=== PATIENT | female | born 1965 | race African-American/Black ===

== ENCOUNTER 2016-09-11 08:56 | Inpatient (IN) | payer OTHER ==
[2016-09-11 09:15] VITALS: BMI 26.2
--- NOTE | 2016-09-11 09:46 | PDOC ---
History of Present Illness <Emeterio Crowder - Last Filed: 09/11/16 14:45> - General History Source: Patient Exam Limitations: No Limitations - History of Present Illness Initial Comments: 09/11/16 10:51 The patient is a 51 year old female, with a significant past medical history of Asthma, Type II Diabetes, HTN, Anxiety, depression, ovarian cysts who presents to the emergency department with fever, constipation and LLQ abdominal pain. Patient visited her PCP and was was sent in for elevated WBC count. Patient notes she has been having 1 month history of vaginal discharge (white) however attributed it to her Diabetes. Patient has not been sexually active for 6 years. Patient denies taking any medications for relief and presents to the ED for further evaluation. Patient denies any history of diverticulitis or recent colonoscopy. She denies chest pain, headache or dizziness. She denies chills, nausea, vomit, diarrhea. She denies dysuria, frequency, urgency or hematuria. Allergies: NKA Past surgical history: Appendectomy and R ovariectomy Social history: Current everyday smoker PCP: Dr. Rocío Mcdonald <Joanne Locke - Last Filed: 09/11/16 14:51> - General Chief Complaint: Pain Stated Complaint: INFECTION, (PCP SENT) Time Seen by Provider: 09/11/16 09:46 Past History - Past Medical History Asthma: Yes Diabetes: Yes HTN: Yes Psychiatric Problems: Yes (anxiety, depression) - Surgical History Abdominal Surgery: (ovarian cyst) - Psycho/Social/Smoking Cessation Hx Suicidal Ideation: No Smoking History: Current every day smoker Number of Cigarettes Smoked Daily: 7 Information on smoking cessation initiated: Yes 'Breaking Loose' booklet given: 09/11/16 Hx Alcohol Use: No Drug/Substance Use Hx: No Substance Use Type: None <Emeterio Crowder - Last Filed: 09/11/16 14:45> <Joanne Locke - Last Filed: 09/11/16 14:51> - Past Medical History Allergies/Adverse Reactions: Allergies Allergy/AdvReac Type Severity Reaction Status Date / Time No Known Allergies Allergy Verified 09/11/16 09:14 Home Medications: Ambulatory Orders NK [No Known Home Medication] 09/11/16 Review of Systems - Review of Systems Able to Perform ROS?: Yes Comments:: 09/11/16 10:51 CONSTITUTIONAL: +fever Absent: chills, diaphoresis, generalized weakness, malaise, loss of appetite HEENT: Absent: rhinorrhea, nasal congestion, throat pain, throat swelling, difficulty swallowing, mouth swelling, ear pain, eye pain, visual Changes CARDIOVASCULAR: Absent: chest pain, syncope, palpitations, irregular heart rate, lightheadedness , peripheral edema RESPIRATORY: Absent: cough, shortness of breath, dyspnea with exertion, orthopnea, wheezing, stridor, hemoptysis GASTROINTESTINAL: + LLQ abdominal pain, constipation. Absent: abdominal distension, nausea, vomiting, diarrhea, melena, hematochezia GENITOURINARY: Absent: dysuria, frequency, urgency, hesitancy, hematuria, flank pain, genital pain MUSCULOSKELETAL: Absent: myalgia, arthralgia, joint swelling SKIN: Absent: rash, itching, pallor HEMATOLOGIC/IMMUNOLOGIC: Absent: easy bleeding, easy bruising, lymphadenopathy, frequent infections ENDOCRINE: Absent: unexplained weight gain, unexplained weight loss, heat intolerance, cold intolerance NEUROLOGIC: Absent: headache, focal weakness or paresthesias, dizziness, unsteady gait, seizure, mental status changes, bladder or bowel incontinence PSYCHIATRIC: Absent: anxiety, depression, suicidal or homicidal ideation, hallucinations. <Joanne Locke - Last Filed: 09/11/16 14:51> *Physical Exam - Vital Signs Last Vital Signs Temp Pulse Resp BP Pulse Ox 98.5 F 90 18 148/97 99 09/11/16 09:13 09/11/16 09:13 09/11/16 09:13 09/11/16 09:13 09/11/16 09:13 <Emeterio Crowder - Last Filed: 09/11/16 14:45> - Vital Signs Last Vital Signs Temp Pulse Resp BP Pulse Ox 98.5 F 90 18 148/97 99 09/11/16 09:13 09/11/16 09:13 09/11/16 09:13 09/11/16 09:13 09/11/16 09:13 - Physical Exam Comments: 09/11/16 10:52 GENERAL: Well developed, well nourished. Awake and alert. In no acute distress. HEENT: Normocephalic, atraumatic. PERRLA, EOMI. No conjunctival pallor. Sclera are non- icteric. Moist mucous membranes. Oropharynx is clear. NECK: Supple. Full ROM. No JVD. Carotid pulses 2+ and symmetric, without bruits. No thyromegaly. No lymphadenopathy. CARDIOVASCULAR: Regular rate and rhythm. No murmurs, rubs, or gallops. Distal pulses are 2+ and symmetric. PULMONARY: No evidence of respiratory distress. Lungs clear to auscultation bilaterally. No wheezing, rales or rhonchi. ABDOMINAL: +L suprapibic temderess on superfcial and deep palpation. Soft. Non-distended. No rebound or guarding. No organomegaly. Normoactive bowel sounds. MUSCULOSKELETAL Normal range of motion at all joints. No bony deformities or tenderness. No CVA tenderness. EXTREMITIES: No cyanosis. No clubbing. No edema. No calf tenderness. SKIN: Warm and dry. Normal capillary refill. No rashes. No jaundice. NEUROLOGICAL: Alert, awake, appropriate. Cranial nerves 2-12 intact. No deficits to light touch and temperature in face, upper extremities and lower extremities. No motor deficits in the in face, upper extremities and lower extremities. Normoreflexic in the upper and lower extremities. Normal speech. Toes are downgoing bilaterally. Gait is normal without ataxia. PSYCHIATRIC: Cooperative. Good eye contact. Appropriate mood and affect. PELVIC EXAM: Copious yellow discharge. No CMT. No adnexal tenderness <Joanne Locke - Last Filed: 09/11/16 14:51> Heart Score/ECG Review - ECG Intrepretation Comment:: 09/11/16 10:25 Normal sinus rhythm at 78, normal axis, normal intervals, late R-wave progression, no ST changes <Emeterio Crowder - Last Filed: 09/11/16 14:45> ED Treatment Course - LABORATORY CBC & Chemistry Diagram: 09/11/16 09:47 09/11/16 10:20 <Emeterio Crowder - Last Filed: 09/11/16 14:45> - LABORATORY CBC & Chemistry Diagram: 09/11/16 09:47 09/11/16 10:20 - ADDITIONAL ORDERS Additional order review: 09/11/16 09:47 RBC 4.36 MCV 96.9 H MCHC 33.4 RDW 14.0 MPV 7.5 Neutrophils % 73.7 Lymphocytes % 19.5 Monocytes % 5.3 Eosinophils % 0.8 Basophils % 0.7 - Medications Given in the ED: ED Medications Discontinued Medications Generic Name Dose Route Start Last Admin Trade Name Francisco PRN Reason Stop Dose Admin Sodium Chloride 1,000 mls @ 1,000 mls/hr 09/11/16 09:47 09/11/16 10:06 Normal Saline - IV 09/11/16 10:46 1,000 mls/hr ASDIR STA Administration Morphine Sulfate 4 mg 09/11/16 09:55 09/11/16 10:06 Morphine Injection - IVPUSH 09/11/16 09:56 4 mg ONCE ONE Administration <Joanne Locke - Last Filed: 09/11/16 14:51> Medical Decision Making - Medical Decision Making 09/11/16 09:55 The patient is well-appearing and in no acute distress Her clinical presentation is quite consistent with diverticulitis Will obtain labs as well as a CT of the abdomen and pelvis with oral and IV contrast We'll administer IV fluids and IV analgesia with morphine 09/11/16 11:29 CBC noted including leukocytosis Diverticulosis is likely Will administer ceftriaxone and tonight is all Will await chemistries and CT 09/11/16 13:24 CT noted Repeat abdominal examination: Continued left lower quadrant tenderness Will obtain transvaginal ultrasound to rule out ovarian pathology Will perform pelvic exam 09/11/16 13:48 Pelvic with copious vaginal discharge, no cervical motion tenderness, no adnexal tenderness Ultrasound pending 09/11/16 14:45 Ultrasound noted, without significant abnormality She continues to have left lower quadrant pain and left lower quadrant tenderness Will place on observation for further evaluation, and surgical consultation Clinical impression: Left lower quadrant abdominal pain Leukocytosis Case discussed in detail with admitting provider including history, physical exam and ancillary studies. Admitting physician has assumed care for the patient, will follow all pending diagnostics and will complete the evaluation and treatment. <Emeterio Crowder - Last Filed: 09/11/16 14:45> - Medical Decision Making 09/11/16 12:17 CT AP Impression: Diffuse fatty infiltration of the liver with no evidence of diverticulitis or acute pathology within the abdomen or pelvis. Transvaginal US IMPRESSION: Normal appearing uterus without evidence of a discrete mass lesion/fibroid. Both ovaries were not visualized. There is no free fluid in the cul-de-sac. Dr. Maldonado was paged at 2:[address] Maldonado answered the page at 2:49 PM and the patient's case was discussed. <Joanne Locke - Last Filed: 09/11/16 14:51> *DC/Admit/Observation/Transfer - Discharge Dispostion Admit: Yes <Emeterio Crowder - Last Filed: 09/11/16 14:45> - Attestations Scribe Attestion: 09/11/16 10:52 Documentation prepared by Joanne Locke, acting as medical technologist chief for Emeterio Crowder MD/DO. <Joanne Locke - Last Filed: 09/11/16 14:51> Diagnosis at time of Disposition: Abdominal pain - Referrals Referrals: Rocío Mcdonald MD [Primary Care Provider] -
[2016-09-11] MEDS ORDERED: SODIUM CHLORIDE 1,000 ML IV STA (09:47)
[2016-09-11] MEDS ORDERED: morphine CARPU-JECT 4 MG/1 ML DISP.SYRIN IVPUSH ONE ×2 (09:55→12:09)
[2016-09-11] MEDS ORDERED: morphine CARPU-JECT 4 MG/1 ML DISP.SYRIN ONE ×2 (10:04→12:14)
[2016-09-11 10:32] LABS: BASOPHIL 0.7 % (0-2.0); EOSINOPHIL 0.8 % (0-4.5); MCH 32.4 pg (25.7-33.7); MCHC 33.4 g/dl (32.0-36.0); MEAN CELL VOLUME 96.9 fl (80-96); MEAN PLT VOLUME 7.5 fl (7.5-11.1); NEUTROPHILS 73.7 % (42.8-82.8); PLATELET COUNT 276 K/MM3 (134-434); WHITE BLOOD COUNT 18.8 K/mm3 (4.0-10.0)
[2016-09-11 11:07] LABS: ALBUMIN 3.1 g/dl (3.4-5.0); ALK PHOS 110 U/L (45-117); ANION GAP 8 (8-16); BILIRUBIN,TOTAL 0.3 mg/dL (0.2-1.0); CO2 29 mmol/L (21-32); CREATININE 0.8 mg/dL (0.55-1.02); GLUCOSE,RANDOM 220 mg/dL (74-106); SGPT/ALT 24 U/L (12-78); TOT PROT 6.8 g/dl (6.4-8.2)
[2016-09-11 11:13] LABS: SGOT/AST 21 U/L (15-37)
[2016-09-11] MEDS ORDERED: CEFTRIAXONE 1 GM in DEXTROSE 5%-WATER - 50 ML IVPB ONE (11:29)
[2016-09-11] MEDS ORDERED: CEFTRIAXONE 50 ML ONE (11:48)
[2016-09-11] MEDS ORDERED: METRONIDAZOLE 500 MG PREMIXED 100 ML IVPB ONE (11:48)
[2016-09-11 12:07] LABS: URINE APPEARANCE CLEAR; URINE BILIRUBIN NEGATIVE (NEGATIVE); URINE COLOR STRAW; URINE GLUCOSE (UA) NEGATIVE (NEGATIVE); URINE KETONE NEGATIVE (NEGATIVE); URINE LEUK ESTERASE NEGATIVE (NEGATIVE); URINE NITRITE NEGATIVE (NEGATIVE); URINE PROTEIN NEGATIVE (NEGATIVE); URINE UROBILINOGEN NEGATIVE E.U./dl (0.2-1.0)
[2016-09-11 12:28] LABS: URINE BLOOD 1+ (NEGATIVE)
[2016-09-11 12:33] LABS: URINE BACTERIA RARE /hpf (NONE SEEN); URINE MUCUS RARE; URINE RBC <1 /hpf (0-3); URINE WBC 2 /hpf (3-5)
[2016-09-11] MEDS: SODIUM CHLORIDE 1,000 ML IV SCH ×2 (15:17→20:50)
--- NOTE | 2016-09-11 17:27 | EKG ---
Test Reason : Blood Pressure : / mmHG Vent. Rate : 079 BPM Atrial Rate : 079 BPM P-R Int : 144 ms QRS Dur : 074 ms QT Int : 378 ms P-R-T Axes : 060 007 042 degrees QTc Int : 433 ms NORMAL SINUS RHYTHM CANNOT RULE OUT ANTERIOR INFARCT , AGE UNDETERMINED ABNORMAL ECG NO PREVIOUS ECGS AVAILABLE Confirmed by SYDNEY RAMIREZ MD ([id number]) on 09/11/2016 5:26:57 PM Referred By: Confirmed By:SYDNEY RAMIREZ MD
--- NOTE | 2016-09-11 19:36 | CONSULT ---
[id number] Chief Complaint: ABDOMINAL PAIN History of Present Illness: The patient is a 51 year old female, with a significant past medical history of Asthma, Type II Diabetes, HTN, Anxiety, depression, ovarian cysts who presents to the emergency department with fever, constipation and LLQ abdominal pain. Patient visited her PCP and was was sent in for elevated WBC count. Surgery consult called to r/o SBO - History Source History Provided By: Patient Limitations to Obtaining History: No Limitations - Alcohol/Substance Use Hx Alcohol Use: No - Smoking History Smoking history: Current every day smoker Aproximately how many cigarettes per day: 7 Home Medications - Allergies Allergies/Adverse Reactions: Allergies Allergy/AdvReac Type Severity Reaction Status Date / Time No Known Allergies Allergy Verified 09/11/16 09:14 - Home Medications Home Medications: Ambulatory Orders Albuterol Sulfate Inhaler - [Ventolin Hfa Inhaler -] 2 inh PO Q4H PRN 09/12/16 Clonidine HCl [Catapres -] 0.3 mg PO HS 09/12/16 Enalapril Maleate [Vasotec -] 10 mg PO DAILY 09/12/16 Escitalopram Oxalate [Lexapro -] 20 mg PO DAILY 09/12/16 Metformin HCl [Glucophage -] 1,000 mg PO BID 09/12/16 Quetiapine Fumarate [Seroquel -] 50 mg PO HS 09/12/16 Review of Systems - Review of Systems Gastrointestinal: reports: Abdominal Pain Physical Exam Vital Signs: Vital Signs Temperature 98.5 F 09/11/16 09:13 Pulse Rate 90 09/11/16 09:13 Respiratory Rate 18 09/11/16 09:13 Blood Pressure 148/97 09/11/16 09:13 O2 Sat by Pulse Oximetry (%) 99 09/11/16 09:13 Constitutional: Yes: Well Nourished, No Distress HENT: Yes: Normocephalic Neck: Yes: Supple Cardiovascular: Yes: Regular Rate and Rhythm Respiratory: Yes: CTA Bilaterally Gastrointestinal: Yes: Tenderness (suprpubic, no rebound tenderness) Labs: Laboratory Last Values WBC 17.9 K/mm3 (4.0-10.0) H 09/12/16 06:30 RBC 4.21 M/mm3 (3.60-5.2) 09/12/16 06:30 Hgb 13.6 GM/dL (10.7-15.3) 09/12/16 06:30 Hct 41.2 % (32.4-45.2) 09/12/16 06:30 MCV 97.9 fl (80-96) H 09/12/16 06:30 MCHC 32.9 g/dl (32.0-36.0) 09/12/16 06:30 RDW 14.2 % (11.6-15.6) 09/12/16 06:30 Plt Count 265 K/MM3 (134-434) 09/12/16 06:30 MPV 7.9 fl (7.5-11.1) 09/12/16 06:30 Neutrophils % 77.5 % (42.8-82.8) 09/12/16 06:30 Lymphocytes % 16.1 % (8-40) 09/12/16 06:30 Monocytes % 4.8 % (3.8-10.2) 09/12/16 06:30 Eosinophils % 1.1 % (0-4.5) 09/12/16 06:30 Basophils % 0.5 % (0-2.0) 09/12/16 06:30 Sodium 132 mmol/L (136-145) L 09/12/16 06:30 Potassium 3.9 mmol/L (3.5-5.1) 09/12/16 06:30 Chloride 94 mmol/L (98-107) L 09/12/16 06:30 Carbon Dioxide 25 mmol/L (21-32) 09/12/16 06:30 Anion Gap 13 (8-16) 09/12/16 06:30 BUN 4 mg/dL (7-18) L 09/12/16 06:30 Creatinine 0.6 mg/dL (0.55-1.02) D 09/12/16 06:30 Creat Clearance w eGFR > 60 (>60) 09/12/16 06:30 Random Glucose 146 mg/dL (74-106) H D 09/12/16 06:30 Calcium 8.5 mg/dL (8.5-10.1) 09/12/16 06:30 Total Bilirubin 0.4 mg/dL (0.2-1.0) D 09/12/16 06:30 AST 18 U/L (15-37) 09/12/16 06:30 ALT 25 U/L (12-78) 09/12/16 06:30 Alkaline Phosphatase 109 U/L (45-117) 09/12/16 06:30 C-Reactive Protein 1.0 MG/DL (0.00-0.3) H D 09/12/16 08:45 Total Protein 6.8 g/dl (6.4-8.2) 09/12/16 06:30 Albumin 3.0 g/dl (3.4-5.0) L 09/12/16 06:30 Lipase 79 U/L (73-393) 09/11/16 10:20 Urine Color Straw 09/11/16 11:44 Urine Appearance Clear 09/11/16 11:44 Urine pH 6.0 (5.0-8.0) 09/11/16 11:44 Ur Specific [place] <= 1.005 (1.005-1.025) 09/11/16 11:44 Urine Protein Negative (NEGATIVE) 09/11/16 11:44 Urine Glucose (UA) Negative (NEGATIVE) 09/11/16 11:44 Urine Ketones Negative (NEGATIVE) 09/11/16 11:44 Urine Blood 1+ (NEGATIVE) H 09/11/16 11:44 Urine Nitrite Negative (NEGATIVE) 09/11/16 11:44 Urine Bilirubin Negative (NEGATIVE) 09/11/16 11:44 Urine Urobilinogen Negative E.U./dl (0.2-1.0) 09/11/16 11:44 Ur Leukocyte Esterase Negative (NEGATIVE) 09/11/16 11:44 Urine RBC <1 /hpf (0-3) 09/11/16 11:44 Urine WBC 2 /hpf (3-5) 09/11/16 11:44 Ur Epithelial Cells Few /hpf (FEW) 09/11/16 11:44 Urine Bacteria Rare /hpf (NONE SEEN) 09/11/16 11:44 Urine Mucus Rare 09/11/16 11:44 C.trachomatis Ampl DNA Negative (Negative) 09/11/16 14:40 HIV 1&2 Antibody Screen Negative 09/12/16 08:45 HIV P24 Antigen Negative 09/12/16 08:45 N. gonorrhoeae (JANKI) Negative (Negative) 09/11/16 14:40 Imaging - Results Cat Scan: Report Reviewed, Image Reviewed Problem List - Problems (1) Abdominal pain Assessment/Plan: No evidence of SBO or diverticulitis. No surgical intervention necessary at this time Please reconsult prn Code(s): R10.9 - UNSPECIFIED ABDOMINAL PAIN
[2016-09-12] MEDS ORDERED: DEXTROSE 5%-0.45% SALINE 1,000 ML IV SCH (01:15)
[2016-09-12] MEDS: morphine CARPU-JECT 2 MG/1 ML DISP.SYRIN IVPUSH PRN ×2 (02:29→10:57)
[2016-09-12] MEDS: METRONIDAZOLE 500 MG PREMIXED 100 ML IVPB SCH ×3 (02:30→18:01)
--- NOTE | 2016-09-12 08:17 | PN ---
Progress Note, Physician Chief Complaint: ID Patient seen by Dr Galvez last week for chronic recurrent abd pain foul smelling vaginal discharge possible fever Noted to have elevated WBC count. Told by Dr Galvez to be admitted and came last night though told to come earlier. Ct scan shows no abscess or diverticulitis - Current Medication List Current Medications: Active Medications Ceftriaxone Sodium (Rocephin 1gm Ivpb (Pre-Docked)) 1 gm IVPB DAILY OSITO Heparin Sodium (Porcine) (Heparin -) 5,000 unit SQ BID OSITO Dextrose/Sodium Chloride (D5-1/2ns -) 1,000 mls @ 75 mls/hr IV ASDIR OSITO Last Admin: 09/12/16 02:00 Dose: 75 mls/hr Metronidazole (Flagyl 500mg Premixed Ivpb -) 100 mls @ 100 mls/hr IVPB Q8H-IV OSITO Last Admin: 09/12/16 02:30 Dose: 100 mls/hr Morphine Sulfate (Morphine Injection -) 2 mg IVPUSH Q6H PRN PRN Reason: PAIN Last Admin: 09/12/16 02:29 Dose: 2 mg - Objective Vital Signs: Vital Signs Temperature 98.4 F 09/12/16 07:10 Pulse Rate 74 09/12/16 07:10 Respiratory Rate 20 09/12/16 07:10 Blood Pressure 140/92 09/12/16 07:10 O2 Sat by Pulse Oximetry (%) 98 09/11/16 21:00 Constitutional: Yes: Well Nourished, No Distress HENT: Yes: WNL, Atraumatic Neck: Yes: WNL, Supple Cardiovascular: Yes: Regular Rate and Rhythm, S1, S2 Respiratory: Yes: WNL, Regular, CTA Bilaterally Gastrointestinal: Yes: WNL, Normal Bowel Sounds, Soft, Tenderness, Other (Left sided tenderness). No: Tenderness, Rebound Edema: No Problem List - Problems (1) Abdominal pain Code(s): R10.9 - UNSPECIFIED ABDOMINAL PAIN Assessment/Plan Laboratory Tests 09/11/16 09/11/16 09/11/16 09:47 10:20 11:44 WBC 18.8 H Hgb 14.1 Plt Count 276 BUN 5 L D Creatinine 0.8 Total Bilirubin 0.3 D ALT 24 D Total Protein 6.8 Albumin 3.1 L Lipase 79 Urine RBC <1 Urine WBC 2 C.trachomatis Ampl DNA N. gonorrhoeae (JANKI) 09/11/16 14:40 WBC Hgb Plt Count BUN Creatinine Total Bilirubin ALT Total Protein Albumin Lipase Urine RBC Urine WBC C.trachomatis Ampl DNA Pending N. gonorrhoeae (JANKI) Pending Assessment Suspect intraabd infection ? diverticulitis possible fistula to tract Plan TELEPHONE CLERK evaluation HIV testing Empiric therapy with Ceftraixone and metronidazole ESR CRP Lyndon JOHNSON
[2016-09-12 08:24] LABS: BASOPHIL 0.5 % (0-2.0); EOSINOPHIL 1.1 % (0-4.5); MCH 32.2 pg (25.7-33.7); MCHC 32.9 g/dl (32.0-36.0); MEAN CELL VOLUME 97.9 fl (80-96); MEAN PLT VOLUME 7.9 fl (7.5-11.1); NEUTROPHILS 77.5 % (42.8-82.8); PLATELET COUNT 265 K/MM3 (134-434); RDW 14.2 % (11.6-15.6); WHITE BLOOD COUNT 17.9 K/mm3 (4.0-10.0)
[2016-09-12] MEDS ORDERED: cefTRIAXone 1 GM/50 ML BAG (PRE-DOCKED) IVPB SCH (10:00)
[2016-09-12] MEDS ORDERED: CEFTRIAXONE 1 GM in DEXTROSE 5%-WATER - 50 ML IVPB SCH (10:00)
[2016-09-12] MEDS ORDERED: HEPARIN NA (PORCINE) 5,000 UNITS/ML 1ML VIAL SQ SCH (10:00)
[2016-09-12 10:08] LABS: HIV 1 & 2 AB NEGATIVE; HIV 1 AGp24 NEGATIVE
[2016-09-12 10:35] LABS: ALK PHOS 109 U/L (45-117); ANION GAP 13 (8-16); BILIRUBIN,TOTAL 0.4 mg/dL (0.2-1.0); CALCIUM 8.5 mg/dL (8.5-10.1); CO2 25 mmol/L (21-32); CREATININE 0.6 mg/dL (0.55-1.02); GLUCOSE,RANDOM 146 mg/dL (74-106); SGOT/AST 18 U/L (15-37); SGPT/ALT 25 U/L (12-78); TOT PROT 6.8 g/dl (6.4-8.2)
--- NOTE | 2016-09-12 12:49 | CONS ---
INFECTIOUS DISEASE CONSULT DATE OF CONSULTATION: DATE OF DICTATION: 09/12/2016 HISTORY OF PRESENT ILLNESS: This is a 51-year-old female with type 2 diabetes who presented to the emergency room with a one-month history of intermittent left lower quadrant abdominal pain, fever and constipation. The patient had been referred by her primary care provider to Dr. Kyler Galvez within the last week for evaluation of her symptoms. The patient also notes that she has had a foul-smelling vaginal discharge, which has been chronic now for several weeks. She has had no bleeding per rectum or history of prior gastrointestinal diagnosis. After being seen by Dr. Galvez, her white count was noted to be elevated, and Dr. Galvez advised the patient to come to the hospital, which she finally did last night. Here she had no fever and was empirically treated with ceftriaxone and metronidazole after her white count was noted to be 18,000. Currently, the patient notes that her pain is somewhat better, and she is here for further evaluation, having been advised colonoscopy only last week. She has had a prior appendectomy as well as ovariectomy in the past and has a history of ovarian cyst. She has not seen a [employer] physician recently PAST MEDICAL HISTORY: Asthma, type 2 diabetes, hypertension, anxiety, depression and ovarian cyst. MEDICATIONS AT HOME: Patient states she is on metformin. ALLERGIES: None known. SOCIAL HISTORY: Current every-day smoker. No history of substance abuse. Non-sexually active for 6 years. Lives at home with no travel, pets. Unemployed. FAMILY HISTORY: The family history is reviewed and noncontributory. REVIEW OF SYSTEMS: Respiratory: No cough, shortness of breath. Cardiac: No chest pain, palpitations, murmur. Gastrointestinal: Intermittent lower quadrant "gassy abdominal cramping." No vomiting. Positive constipation. No blood per rectum. Melena. Genitourinary: Vaginal discharge, as noted. PHYSICAL EXAMINATION: General: She was an alert, well-nourished appearing woman in no acute distress. Vital signs; Weight 152 pounds, temperature 98.4, pulse 74, blood pressure 140/90, respirations 20. HEENT: The neck was supple without adenopathy. Lungs: Clear to percussion and auscultation. Heart: S1, S2, regular rhythm without audible murmur. Abdomen: Positive bowel sounds. No abdominal distention noted. Tenderness noted in the left upper and left lower quadrant without guarding or rebound. No palpable mass. Extremities: Without clubbing, cyanosis or edema. LABS: White count of 18.8, hemoglobin 14.1, platelets of 276. Chemistries: Glucose 220. Liver enzymes within normal limits. CRP less than 0.3. Sed rate not done. Urinalysis with 1 RBC, 2 WBCs. CAT scan shows no acute intraabdominal pathology. ASSESSMENT: 51-year-old female presents with chronic recurrent lower abdominal pain on the left side, now noted to have leukocytosis. Also admits to recent fever and chronic vaginal discharge. The possibility of diverticulitis with a small perforation and/or possible fistula to the track considered. Additionally, the possibility of an underlying colonic neoplasm considered. PLAN: 1. Gastrointestinal consultation. Patient has been seen last week by Dr. Galvez. 2. Empiric antibiotic treatment with ceftriaxone and metronidazole. 3. CRP, HIV and ESR testing. 4. [employer] evaluation, Dr. Grant requested. KYLER SOLIS M.D. APOLINAR/[id number]
--- NOTE | 2016-09-12 14:18 | HP ---
Admitting History and Physical - Admission History of Present Illness: Pt is a 51 y/o female, with PMH significant for asthma, Type II Diabetes, HTN, anxiety, depression and ovarian cysts. Pt presented to the ER w/ abdominal pain wc was mostly localized to LLQ. This was accompanied w/ fever. Pt does have a vaginal discharge. - Smoking History Smoking history: Current every day smoker Aproximately how many cigarettes per day: 7 - Alcohol/Substance Use Hx Alcohol Use: No Home Medications - Allergies Allergies/Adverse Reactions: Allergies Allergy/AdvReac Type Severity Reaction Status Date / Time No Known Allergies Allergy Verified 09/11/16 09:14 - Home Medications Home Medications: Ambulatory Orders Albuterol Sulfate Inhaler - [Ventolin Hfa Inhaler -] 2 inh PO Q4H PRN 09/12/16 Clonidine HCl [Catapres -] 0.3 mg PO HS 09/12/16 Enalapril Maleate [Vasotec -] 10 mg PO DAILY 09/12/16 Escitalopram Oxalate [Lexapro -] 20 mg PO DAILY 09/12/16 Metformin HCl [Glucophage -] 1,000 mg PO BID 09/12/16 Quetiapine Fumarate [Seroquel -] 50 mg PO HS 09/12/16 Family Disease History - Family Disease History Family History: Unremarkable Review of Systems - Review of Systems Constitutional: reports: Fever Eyes: reports: No Symptoms HENT: reports: No Symptoms Neck: reports: No Symptoms Cardiovascular: reports: No Symptoms Respiratory: reports: No Symptoms Gastrointestinal: reports: Abdominal Pain Physical Examination Vital Signs: Vital Signs Temperature 98.4 F 09/12/16 07:10 Pulse Rate 74 09/12/16 07:10 Respiratory Rate 20 09/12/16 12:09 Blood Pressure 140/92 09/12/16 07:10 O2 Sat by Pulse Oximetry (%) 98 09/12/16 12:09 Constitutional: Yes: Well Nourished Eyes: Yes: WNL HENT: Yes: WNL Neck: Yes: Supple Cardiovascular: Yes: WNL, Regular Rate and Rhythm Respiratory: Yes: WNL, Regular, CTA Bilaterally Gastrointestinal: Yes: WNL, Normal Bowel Sounds, Soft Breast(s): Yes: WNL Musculoskeletal: Yes: WNL Extremities: Yes: WNL Edema: No Neurological: Yes: WNL, Oriented ...Motor Strength: WNL Labs: CBC, BMP 09/12/16 06:30 09/12/16 06:30 Problem List - Problems (1) Abdominal pain Assessment/Plan: Probably related to chronic constipation Cont IVF GI/surgical consults Cont antibxs due to leukocytosis ID consult Code(s): R10.9 - UNSPECIFIED ABDOMINAL PAIN (2) Asthma Code(s): J45.909 - UNSPECIFIED ASTHMA, UNCOMPLICATED (3) Diabetes mellitus Code(s): E11.9 - TYPE 2 DIABETES MELLITUS WITHOUT COMPLICATIONS (4) Hypertension Code(s): I10 - ESSENTIAL (PRIMARY) HYPERTENSION
[2016-09-12 14:28] VITALS: PULSE 88
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
[2016-09-12 15:40] VITALS: BP 189/98; TEMP 79
[2016-09-12] MEDS ORDERED: ENALAPRIL MALEATE 10 MG TABLET (FP) PO SCH (15:45)
[2016-09-12] MEDS ORDERED: metFORMIN HCL 500 MG TABLET (FP) PO SCH (16:30)
[2016-09-12] MEDS ORDERED: SODIUM CHLORIDE 1,000 ML IV SCH (16:30)
[2016-09-12] MEDS ORDERED: QUEtiapine FUMARATE 25 MG TABLET (FP) PO SCH (22:00)
[2016-09-12] MEDS ORDERED: POLYETHYLENE GLYCOL 3350 119 GM BTL PO SCH (22:00)
[2016-09-12] MEDS ORDERED: cloNIDine HCL 0.1 MG TABLET PO SCH (22:00)
== END 2016-09-12 20:14 | disposition left against medical advice (07) | DRG 254 ==
LOC: JER 08:56 → JERBED 14:46 → J8W 18:20 → OBSVTOIN 09-12 01:00
PROVIDERS: ADMIT Internal Medicine; ATTEND Internal Medicine
DX: K59.09 Other constipation (principal); K62.4 Stenosis of anus and rectum; R50.9 Fever, unspecified; R10.9 Unspecified abdominal pain; J45.909 Unspecified asthma, uncomplicated; I10 Essential (primary) hypertension; F41.8 Other specified anxiety disorders; K55.8 Other vascular disorders of intestine; N70.92 Oophoritis, unspecified; N83.299 Other ovarian cyst, unspecified side; E11.40 Type 2 diabetes mellitus with diabetic neuropathy, unspecified; F17.210 Nicotine dependence, cigarettes, uncomplicated; E78.5 Hyperlipidemia, unspecified; F32.9 Major depressive disorder, single episode, unspecified; N95.8 Other specified menopausal and perimenopausal disorders; E87.1 Hypo-osmolality and hyponatremia; E13.319 Other specified diabetes mellitus with unspecified diabetic retinopathy without macular edema; K76.0 Fatty (change of) liver, not elsewhere classified; D72.829 Elevated white blood cell count, unspecified; F10.20 Alcohol dependence, uncomplicated; E79.0 Hyperuricemia without signs of inflammatory arthritis and tophaceous disease; Z87.898 Personal history of other specified conditions; Z91.5 Personal history of self-harm; Z90.49 Acquired absence of other specified parts of digestive tract
CPT/HCPCS: 36415; 74177-TC; 76830-TC; 80053; 81003; 81015; 83690; 85025; 86140; 87040; 87086; 87389; 87491; 87591; 93005; 93010; 99282-25; G0378; J1644; Q9967

== ENCOUNTER 2016-10-07 17:49 | Emergency (ER) | payer OTHER ==
[2016-10-07 18:00] VITALS: BMI 26.1
[2016-10-07 19:09] LABS: BASOPHIL 0.8 % (0-2.0); EOSINOPHIL 0.7 % (0-4.5); MCH 32.8 pg (25.7-33.7); MCHC 33.1 g/dl (32.0-36.0); MEAN CELL VOLUME 99.1 fl (80-96); MEAN PLT VOLUME 7.8 fl (7.5-11.1); PLATELET COUNT 290 K/MM3 (134-434); RDW 15.1 % (11.6-15.6); WHITE BLOOD COUNT 15.8 K/mm3 (4.0-10.0)
[2016-10-07 19:34] LABS: INR 0.95 (0.82-1.09); PROTHROMBIN TIME (PATIENT) 10.4 SEC (9.98-11.88)
[2016-10-07 19:36] LABS: ACTIVATED PTT 31.2 SECONDS (26.9-34.4)
[2016-10-07 19:37] LABS: ALBUMIN 3.4 g/dl (3.4-5.0); ANION GAP 16 (8-16); BILIRUBIN,TOTAL 0.4 mg/dL (0.2-1.0); CALCIUM 8.9 mg/dL (8.5-10.1); CO2 25 mmol/L (21-32); CREATININE 0.6 mg/dL (0.55-1.02); GLUCOSE,RANDOM 136 mg/dL (74-106); SGOT/AST 45 U/L (15-37); SGPT/ALT 44 U/L (12-78); TOT PROT 7.6 g/dl (6.4-8.2)
[2016-10-07 19:40] LABS: ALK PHOS 113 U/L (45-117); TROPONIN I < 0.02 ng/ml (0.00-0.05)
[2016-10-07] MEDS ORDERED: LORAZEPAM CARPU-JECT 2 MG/ML DISP.SYRIN IVPUSH ONE (19:53)
[2016-10-07] MEDS ORDERED: LABETALOL HCL 5 MG/1 ML (100MG/20 ML VIAL) IVPUSH ONE (19:53)
[2016-10-07] MEDS ORDERED: PANTOPRAZOLE SODIUM 40 MG in SODIUM CHLORIDE 100 ML IVPB ONE (19:53)
[2016-10-07] MEDS ORDERED: ONDANSETRON 4 MG/2 ML VIAL IVPB ONE (19:57)
[2016-10-07] MEDS ORDERED: SODIUM CHLORIDE 1,000 ML IV SCH (20:00)
[2016-10-07] MEDS ORDERED: PANTOPRAZOLE SODIUM 100 ML IVPB ONE (20:10)
[2016-10-07] MEDS ORDERED: LORazepam 2 MG/ML SDV VIAL ONE (20:10)
[2016-10-07] MEDS ORDERED: ONDANSETRON 4 MG/2 ML VIAL ONE (20:10)
[2016-10-07] MEDS ORDERED: LABETALOL HCL 5 MG/1 ML (200MG/40ML VIAL) IVPB ONE (20:10)
--- NOTE | 2016-10-07 21:34 | PDOC ---
History of Present Illness - General Chief Complaint: Blood Pressure Problem Stated Complaint: CHEST PAIN Time Seen by Provider: 10/07/16 19:32 History Source: Patient Exam Limitations: No Limitations - History of Present Illness Initial Comments: 10/07/16 21:13 51yo Female patient w/ PmHx: EtOH dependence, DM, Asthma, HLD, HTN, Depression, Anxiety, Ovarian Cyst, Leukocytosis presents to ED with multiple complaints at this time. Patient state going to [facility] around 1pm today for detox due to alcoholism, while begin assessed she was found to be in Hypertensive Crisis, h/ a and having Epigastric Abd pain. Patient signed herself out of hospital 2 weeks ago after being admitted for abdominal pain w/ Leukocytosis. She reports last drink: 10 am (Beer) LNMP: 7 yrs ago. Past History - Past Medical History Allergies/Adverse Reactions: Allergies Allergy/AdvReac Type Severity Reaction Status Date / Time No Known Allergies Allergy Verified 09/11/16 09:14 Home Medications: Ambulatory Orders Albuterol Sulfate Inhaler - [Ventolin Hfa Inhaler -] 2 inh PO Q4H PRN 09/12/16 Clonidine HCl [Catapres -] 0.3 mg PO HS 09/12/16 Enalapril Maleate [Vasotec -] 10 mg PO DAILY 09/12/16 Escitalopram Oxalate [Lexapro -] 20 mg PO DAILY 09/12/16 Metformin HCl [Glucophage -] 1,000 mg PO BID 09/12/16 Quetiapine Fumarate [Seroquel -] 50 mg PO HS 09/12/16 Sucralfate Oral Suspension [Carafate *Oral Susp*] 1 gm PO BID #140 ml 10/08/16 Asthma: Yes Diabetes: Yes HTN: Yes Psychiatric Problems: Yes (anxiety, depression) - Surgical History Abdominal Surgery: (ovarian cyst) - Psycho/Social/Smoking Cessation Hx Anxiety: Yes Suicidal Ideation: No Smoking History: Current every day smoker Have you smoked in the past 12 months: Yes Number of Cigarettes Smoked Daily: 8 Cigars Per Day: 0 Information on smoking cessation initiated: No 'Breaking Loose' booklet given: 09/11/16 Hx Alcohol Use: Yes Drug/Substance Use Hx: Yes (10/06/16) Substance Use Type: Alcohol, Marijuana *Physical Exam - Vital Signs Last Vital Signs Temp Pulse Resp BP Pulse Ox 99.2 F 78 16 136/72 98 10/07/16 17:57 10/07/16 21:00 10/07/16 21:00 10/07/16 21:00 10/07/16 21:00 ED Treatment Course - LABORATORY CBC & Chemistry Diagram: 10/07/16 18:54 10/07/16 18:54 - ADDITIONAL ORDERS Additional order review: Laboratory Results 10/07/16 10/07/16 18:54 18:54 INR 0.95 PTT (Actin FS) 31.2 Sodium 136 Potassium 3.7 Chloride 95 L Carbon Dioxide 25 Anion Gap 16 BUN 8 D Creatinine 0.6 Creat Clearance w eGFR > 60 Random Glucose 136 H Calcium 8.9 Total Bilirubin 0.4 AST 45 H D ALT 44 D Alkaline Phosphatase 113 Creatine Kinase 89 Troponin I < 0.02 Total Protein 7.6 Albumin 3.4 10/07/16 18:54 RBC 3.98 MCV 99.1 H MCHC 33.1 RDW 15.1 MPV 7.8 Neutrophils % 75.0 Lymphocytes % 19.3 Monocytes % 4.2 Eosinophils % 0.7 Basophils % 0.8 - RADIOLOGY Radiology Studies Ordered: Category Date Time Status GALLBLADDER US [US] Stat Ultrasound 10/07/16 19:51 Ordered - Medications Given in the ED: ED Medications Discontinued Medications Generic Name Dose Route Start Last Admin Trade Name Sonyq PRN Reason Stop Dose Admin Pantoprazole Sodium 40 mg/ 100 mls @ 200 mls/hr 10/07/16 19:53 10/07/16 20:15 Sodium Chloride IVPB 10/07/16 20:22 200 mls/hr ONCE ONE Administration Labetalol HCl 10 mg 10/07/16 19:53 10/07/16 20:15 Normodyne Injection - IVPUSH 10/07/16 19:54 10 mg ONCE ONE Administration Lorazepam 1 mg 10/07/16 19:53 10/07/16 20:15 Ativan Injection - IVPUSH 10/07/16 19:54 1 mg ONCE ONE Administration Ondansetron HCl 4 mg 10/07/16 19:57 10/07/16 20:16 Zofran Injection IVPB 10/07/16 19:58 4 mg ONCE ONE Administration *DC/Admit/Observation/Transfer Diagnosis at time of Disposition: History of alcohol dependence Hypertension Qualifiers: Hypertension type: other secondary hypertension Qualified Code(s): I15.8 - Other secondary hypertension Gastric ulcer Qualifiers: Gastric ulcer chronicity: acute Gastric ulcer complication status: without hemorrhage or perforation Qualified Code(s): K25.3 - Acute gastric ulcer without hemorrhage or perforation - Discharge Dispostion Disposition: I.P. ALCOHOL/SUBS ABUSE REHAB Condition at time of disposition: Improved Admit: No - Prescriptions Prescriptions: Sucralfate Oral Suspension [Carafate *Oral Susp*] 1 gm PO BID #140 ml - Referrals Referrals: Rocío Mcdonald MD [Primary Care Provider] - Onesimo Stewart MD [Staff Physician] - - Patient Instructions Additional Instructions: FOLLOW UP WITH DR. STEWART (GASTROENTEROLOGY) REGARDING GASTRIC ULCERS. REFRAIN FROM DRINKING ALCOHOL OR ULCERS WILL BECOME WORSE. RETURN IF ANY CONCERNS OR WORSENING OF SYMPTOMS FOR FURTHER EVALUATION. Print Language: PORTUGUESE
--- NOTE | 2016-10-07 22:10 | PDOC ---
*Physical Exam - Vital Signs Last Vital Signs Temp Pulse Resp BP Pulse Ox 99.2 F 78 16 136/72 98 10/07/16 17:57 10/07/16 21:00 10/07/16 21:00 10/07/16 21:00 10/07/16 21:00 ED Treatment Course - LABORATORY CBC & Chemistry Diagram: 10/07/16 18:54 10/07/16 18:54 - ADDITIONAL ORDERS Additional order review: Laboratory Results 10/07/16 10/07/16 18:54 18:54 INR 0.95 PTT (Actin FS) 31.2 Sodium 136 Potassium 3.7 Chloride 95 L Carbon Dioxide 25 Anion Gap 16 BUN 8 D Creatinine 0.6 Creat Clearance w eGFR > 60 Random Glucose 136 H Calcium 8.9 Total Bilirubin 0.4 AST 45 H D ALT 44 D Alkaline Phosphatase 113 Creatine Kinase 89 Troponin I < 0.02 Total Protein 7.6 Albumin 3.4 10/07/16 18:54 RBC 3.98 MCV 99.1 H MCHC 33.1 RDW 15.1 MPV 7.8 Neutrophils % 75.0 Lymphocytes % 19.3 Monocytes % 4.2 Eosinophils % 0.7 Basophils % 0.8 - Medications Given in the ED: ED Medications Discontinued Medications Generic Name Dose Route Start Last Admin Trade Name Freq PRN Reason Stop Dose Admin Pantoprazole Sodium 40 mg/ 100 mls @ 200 mls/hr 10/07/16 19:53 10/07/16 20:15 Sodium Chloride IVPB 10/07/16 20:22 200 mls/hr ONCE ONE Administration Labetalol HCl 10 mg 10/07/16 19:53 10/07/16 20:15 Normodyne Injection - IVPUSH 10/07/16 19:54 10 mg ONCE ONE Administration Lorazepam 1 mg 10/07/16 19:53 10/07/16 20:15 Ativan Injection - IVPUSH 10/07/16 19:54 1 mg ONCE ONE Administration Ondansetron HCl 4 mg 10/07/16 19:57 10/07/16 20:16 Zofran Injection IVPB 10/07/16 19:58 4 mg ONCE ONE Administration Medical Decision Making - Medical Decision Making 10/07/16 22:10 agree with care from YAZMIN Banks *DC/Admit/Observation/Transfer Diagnosis at time of Disposition: Gastric ulcer, History of alcohol dependence, Hypertension - Discharge Dispostion Disposition: HOME - Referrals Referrals: Onesimo Stewart MD [Staff Physician] - Roíco Mcdonald MD [Primary Care Provider] - - Patient Instructions Additional Instructions: FOLLOW UP WITH DR. STEWART (GASTROENTEROLOGY) REGARDING GASTRIC ULCERS. REFRAIN FROM DRINKING ALCOHOL OR ULCERS WILL BECOME WORSE. RETURN IF ANY CONCERNS OR WORSENING OF SYMPTOMS FOR FURTHER EVALUATION. Print Language: ROMANSH
[2016-10-08] MEDS ORDERED: SUCRALFATE 1 GM/10 ML UNIT DOSE CUPS PO ONE (04:27)
[2016-10-08] MEDS ORDERED: SUCRALFATE 1 GM TABLET (FP) ONE (04:53)
[2016-10-08 06:52] VITALS: BP 128/79; PULSE 85; TEMP 97.7
--- NOTE | 2016-10-09 16:31 | EKG ---
Test Reason : Blood Pressure : / mmHG Vent. Rate : 070 BPM Atrial Rate : 070 BPM P-R Int : 128 ms QRS Dur : 076 ms QT Int : 424 ms P-R-T Axes : 012 001 024 degrees QTc Int : 457 ms NORMAL SINUS RHYTHM SEPTAL INFARCT (CITED ON OR BEFORE 11-SEP-2016) ABNORMAL ECG WHEN COMPARED WITH ECG OF 11-SEP-2016 10:21, QUESTIONABLE CHANGE IN INITIAL FORCES OF SEPTAL LEADS Confirmed by ASHLEY JOHNSON, SYDNEY ([id number]) on 10/09/2016 4:31:07 PM Referred By: Confirmed By:SYDNEY RAMIREZ MD
== END 2016-10-08 06:57 | disposition home or self-care (01) ==
LOC: JER 17:49
PROC: 3E033GC Introduction of Other Therapeutic Substance into Peripheral Vein, Percutaneous Approach (ICD-10-PCS; principal; 2016-10-07)
PROC: 3E033GC Introduction of Other Therapeutic Substance into Peripheral Vein, Percutaneous Approach (ICD-10-PCS; 2016-10-07)
PROC: 3E033NZ Introduction of Analgesics, Hypnotics, Sedatives into Peripheral Vein, Percutaneous Approach (ICD-10-PCS; 2016-10-07)
PROC: 3E033GC Introduction of Other Therapeutic Substance into Peripheral Vein, Percutaneous Approach (ICD-10-PCS; 2016-10-07)
DX: F10.20 Alcohol dependence, uncomplicated (principal); K25.3 Acute gastric ulcer without hemorrhage or perforation; I15.8 Other secondary hypertension; E11.9 Type 2 diabetes mellitus without complications; Z79.84 Long term (current) use of oral hypoglycemic drugs; J45.909 Unspecified asthma, uncomplicated; F41.9 Anxiety disorder, unspecified
CPT/HCPCS: 36415; 74177-TC; 76705-TC; 80053; 82550; 84484; 85025; 85610; 85730; 93005; 93010; 99285-25

== ENCOUNTER 2016-10-08 08:20 | Inpatient (IN) | payer OTHER ==
[2016-10-08 09:22] VITALS: BMI 26.1
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
[2016-10-08] MEDS ORDERED: MAG HYDROX/AL HYDROX/SIMETH 30 ML UNIT-DOSE CUP PO PRN (13:22)
[2016-10-08] MEDS ORDERED: MAGNESIUM CITRATE 300 ML BOTTLE PO PRN (13:22)
[2016-10-08] MEDS ORDERED: chlordiazePOXIDE HCL 25 MG CAPSULE PO PRN (13:22)
[2016-10-08] MEDS ORDERED: guaiFENesin/D-METHORPHAN HB 10 ML UNIT-DOSE CUPS PO PRN (13:22)
[2016-10-08] MEDS ORDERED: MENTHOL/PHENOL 1 EACH UD MM PRN (13:22)
[2016-10-08] MEDS ORDERED: IBUPROFEN 400 MG TABLET (FP) PO PRN (13:22)
[2016-10-08] MEDS ORDERED: P-EPHED 60MG/TRIPROLIDI 2.5MG TABLET PO PRN (13:22)
[2016-10-08] MEDS ORDERED: hydrOXYzine PAMOATE 25 MG CAPSULE (FP) PO PRN (13:22)
[2016-10-08] MEDS ORDERED: MAGNESIUM HYDROX 2400MG/30ML ORAL SUSPENSION 30 ML CUP PO PRN (13:22)
[2016-10-08] MEDS ORDERED: ALBUTEROL SO4 6.7 GM HFA INHALER IH PRN (13:27)
[2016-10-08] MEDS ORDERED: INSULIN (NOVOLOG) ASPART 100 UNITS/ML 10ML VIAL ONE (16:48)
[2016-10-08] MEDS: metFORMIN HCL 500 MG TABLET (FP) PO SCH ×2 (17:19→17:23)
[2016-10-08] MEDS: chlordiazePOXIDE HCL 25 MG CAPSULE PO SCH ×2 (17:19→22:31)
[2016-10-08] MEDS: INSULIN SLIDING SCALE (NOVOLOG) 1 VIAL SQ SCH (17:20)
[2016-10-08 18:21] LABS: URINE APPEARANCE CLEAR; URINE BILIRUBIN NEGATIVE (NEGATIVE); URINE COLOR YELLOW; URINE GLUCOSE (UA) NEGATIVE (NEGATIVE); URINE KETONE TRACE (NEGATIVE); URINE NITRITE NEGATIVE (NEGATIVE); URINE PROTEIN NEGATIVE (NEGATIVE); URINE UROBILINOGEN NEGATIVE E.U./dl (0.2-1.0)
[2016-10-08 18:40] LABS: URINE BLOOD 1+ (NEGATIVE); URINE LEUK ESTERASE 2+ (NEGATIVE)
[2016-10-08 19:09] LABS: URINE BACTERIA RARE /hpf (NONE SEEN); URINE MUCUS RARE; URINE RBC 5 /hpf (0-3); URINE WBC 1 /hpf (3-5)
[2016-10-08] MEDS: ACETAMINOPHEN 325 MG TABLET (FP) PO PRN (19:17)
[2016-10-08] MEDS: NICOTINE POLACRILEX 4 MG GUM BC PRN ×2 (19:25→23:12)
[2016-10-08] MEDS: THIAMINE HCL 100 MG TABLET (FP) PO SCH (22:30)
[2016-10-08] MEDS: SUCRALFATE 1 GM/10 ML UNIT DOSE CUPS PO SCH (22:31)
[2016-10-08] MEDS: cloNIDine HCL 0.1 MG TABLET PO SCH (22:31)
[2016-10-08] MEDS: diphenhydrAMINE HCL 50 MG CAPSULE PO PRN (22:31)
[2016-10-09] MEDS: chlordiazePOXIDE HCL 25 MG CAPSULE PO SCH ×4 (05:45→22:35)
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
[2016-10-09] MEDS: metFORMIN HCL 500 MG TABLET (FP) PO SCH ×2 (08:02→16:56)
[2016-10-09] MEDS: INSULIN SLIDING SCALE (NOVOLOG) 1 VIAL SQ SCH ×2 (08:02→16:58)
[2016-10-09] MEDS: ACETAMINOPHEN 325 MG TABLET (FP) PO PRN (08:03)
[2016-10-09 09:55] LABS: MCH 33.3 pg (25.7-33.7); MCHC 33.1 g/dl (32.0-36.0); MEAN CELL VOLUME 100.7 fl (80-96); MEAN PLT VOLUME 8.1 fl (7.5-11.1); PLATELET COUNT 194 K/MM3 (134-434); RDW 15.1 % (11.6-15.6); WHITE BLOOD COUNT 11.3 K/mm3 (4.0-10.0)
[2016-10-09 10:13] LABS: ALBUMIN 2.9 g/dl (3.4-5.0); ALK PHOS 85 U/L (45-117); ANION GAP 10 (8-16); BILIRUBIN,TOTAL 0.5 mg/dL (0.2-1.0); CALCIUM 9.2 mg/dL (8.5-10.1); CO2 30 mmol/L (21-32); CREATININE 0.6 mg/dL (0.55-1.02); GLUCOSE,RANDOM 202 mg/dL (74-106); SGOT/AST 23 U/L (15-37); SGPT/ALT 28 U/L (12-78); TOT PROT 6.4 g/dl (6.4-8.2)
[2016-10-09] MEDS: cloNIDine HCL 0.1 MG TABLET PO SCH ×2 (10:50→22:34)
[2016-10-09] MEDS: PRENATAL VITAMINS W/ FOLIC ACID TABLET (FP) PO SCH (10:50)
[2016-10-09] MEDS: ENALAPRIL MALEATE 10 MG TABLET (FP) PO SCH (10:51)
[2016-10-09] MEDS: NICOTINE 21 MG/24 HOURS TOPICAL PATCH TD SCH (10:51)
[2016-10-09] MEDS: SUCRALFATE 1 GM/10 ML UNIT DOSE CUPS PO SCH ×2 (10:51→22:34)
[2016-10-09] MEDS: ESCITALOPRAM OXALATE 20 MG TABLET (FP) PO SCH (10:52)
[2016-10-09] MEDS ORDERED: ONDANSETRON *ODT* 4 MG TABLET SL PRN (10:59)
--- NOTE | 2016-10-09 10:59 | PN ---
S CIWA - CIWA Score Nausea/Vomitin-Mild Nausea/No Vomiting Muscle Tremors: 4-Moderate,w/Arms Extend Anxiety: 3 Agitation: 4-Moderately Restless Paroxysmal Sweats: 3 Orientation: 0-Oriented Tacttile Disturbances: 0-None Auditory Disturbances: 0-None Visual Disturbances: 0-None Headache: 1-Very Mild CIWA-Ar Total Score: 16 BHS Progress Note (SOAP) Subjective: sweats shakes interrupted sleep agitation anxiety nausea Objective: 10/09/16 10:57 Vital Signs Temperature 98.1 F 10/09/16 09:59 Pulse Rate 76 10/09/16 09:59 Respiratory Rate 16 10/09/16 09:59 Blood Pressure 134/77 10/09/16 09:59 O2 Sat by Pulse Oximetry (%) Laboratory Tests 10/08/16 10/08/16 10/08/16 10:13 14:00 16:24 WBC RBC Hgb Hct MCV MCHC RDW Plt Count MPV Sodium Potassium Chloride Carbon Dioxide Anion Gap BUN Creatinine Creat Clearance w eGFR POC Glucometer 242 201 Random Glucose Calcium Total Bilirubin AST ALT Alkaline Phosphatase Total Protein Albumin Urine Color Yellow Urine Appearance Clear Urine pH 6.0 Ur Specific [place] <= 1.005 Urine Protein Negative Urine Glucose (UA) Negative Urine Ketones Trace H Urine Blood 1+ H Urine Nitrite Negative Urine Bilirubin Negative Urine Urobilinogen Negative Ur Leukocyte Esterase 2+ H Urine RBC 5 Urine WBC 1 Ur Epithelial Cells Rare Urine Bacteria Rare Urine Mucus Rare 10/09/16 10/09/16 10/09/16 05:43 07:00 07:00 WBC 11.3 H RBC 3.63 Hgb 12.1 Hct 36.6 MCV 100.7 H MCHC 33.1 RDW 15.1 Plt Count 194 D MPV 8.1 Sodium 139 Potassium 3.7 Chloride 99 Carbon Dioxide 30 Anion Gap 10 BUN 7 Creatinine 0.6 Creat Clearance w eGFR > 60 POC Glucometer 176 Random Glucose 202 H D Calcium 9.2 Total Bilirubin 0.5 D AST 23 D ALT 28 D Alkaline Phosphatase 85 D Total Protein 6.4 Albumin 2.9 L Urine Color Urine Appearance Urine pH Ur Specific [place] Urine Protein Urine Glucose (UA) Urine Ketones Urine Blood Urine Nitrite Urine Bilirubin Urine Urobilinogen Ur Leukocyte Esterase Urine RBC Urine WBC Ur Epithelial Cells Urine Bacteria Urine Mucus repeat cbc and glucose awake/alert ambulating no acute distress Assessment: 10/09/16 10:58 withdrawal sx Plan: continue detox increase water intake f/u pending repeated labs motrin/tylenol prn zofran prn
--- NOTE | 2016-10-09 16:38 | EKG ---
Test Reason : Blood Pressure : / mmHG Vent. Rate : 076 BPM Atrial Rate : 076 BPM P-R Int : 142 ms QRS Dur : 076 ms QT Int : 406 ms P-R-T Axes : 000 007 -03 degrees QTc Int : 456 ms NORMAL SINUS RHYTHM NORMAL ECG WHEN COMPARED WITH ECG OF 07-OCT-2016 18:11, CRITERIA FOR SEPTAL INFARCT ARE NO LONGER PRESENT Confirmed by SYDNEY RAMIREZ MD ([id number]) on 10/09/2016 4:37:52 PM Referred By: Gabino Ott Confirmed By:SYDNEY RAMIREZ MD
[2016-10-09] MEDS ORDERED: INSULIN (NOVOLOG) ASPART 100 UNITS/ML 10ML VIAL ONE (16:54)
[2016-10-09] MEDS: diphenhydrAMINE HCL 50 MG CAPSULE PO PRN (22:34)
[2016-10-09] MEDS: QUEtiapine FUMARATE 50 MG TABLET PO SCH (22:35)
[2016-10-09] MEDS: THIAMINE HCL 100 MG TABLET (FP) PO SCH (22:35)
[2016-10-10] MEDS ORDERED: INSULIN (NOVOLOG) ASPART 100 UNITS/ML 10ML VIAL ONE (05:42)
[2016-10-10] MEDS: chlordiazePOXIDE HCL 25 MG CAPSULE PO SCH ×2 (05:44→11:20)
[2016-10-10] MEDS: INSULIN SLIDING SCALE (NOVOLOG) 1 VIAL SQ SCH ×2 (07:01→17:07)
[2016-10-10] MEDS: metFORMIN HCL 500 MG TABLET (FP) PO SCH ×2 (07:01→17:03)
[2016-10-10 10:29] LABS: BASOPHIL 0.5 % (0-2.0); EOSINOPHIL 1.5 % (0-4.5); MCHC 32.5 g/dl (32.0-36.0); MEAN CELL VOLUME 101.6 fl (80-96); MEAN PLT VOLUME 8.2 fl (7.5-11.1); NEUTROPHILS 71.4 % (42.8-82.8); PLATELET COUNT 186 K/MM3 (134-434); RDW 15.5 % (11.6-15.6); WHITE BLOOD COUNT 12.8 K/mm3 (4.0-10.0)
[2016-10-10] MEDS: cloNIDine HCL 0.1 MG TABLET PO SCH ×2 (11:20→22:39)
[2016-10-10] MEDS: PRENATAL VITAMINS W/ FOLIC ACID TABLET (FP) PO SCH (11:20)
[2016-10-10] MEDS: ENALAPRIL MALEATE 10 MG TABLET (FP) PO SCH (11:20)
[2016-10-10] MEDS: SUCRALFATE 1 GM/10 ML UNIT DOSE CUPS PO SCH ×2 (11:20→22:39)
[2016-10-10] MEDS: ESCITALOPRAM OXALATE 20 MG TABLET (FP) PO SCH (11:20)
[2016-10-10] MEDS: NICOTINE 21 MG/24 HOURS TOPICAL PATCH TD SCH (11:21)
--- NOTE | 2016-10-10 11:29 | PN ---
[facility] CIWA - CIWA Score Nausea/Vomitin-No Nausea/No Vomiting Muscle Tremors: 3 Anxiety: 2 Agitation: 2 Paroxysmal Sweats: 3 Orientation: 0-Oriented Tacttile Disturbances: 0-None Auditory Disturbances: 0-None Visual Disturbances: 0-None Headache: 0-None Present CIWA-Ar Total Score: 10 S Progress Note (SOAP) Subjective: tired/drowsy sweats the seroquel is too high of a dose and need it lowered. Objective: 10/10/16 11:27 Vital Signs Temperature 98.2 F 10/10/16 10:22 Pulse Rate 78 10/10/16 10:22 Respiratory Rate 18 10/10/16 10:22 Blood Pressure 101/64 10/10/16 10:22 O2 Sat by Pulse Oximetry (%) Laboratory Tests 10/08/16 10/08/16 10/08/16 10:13 13:00 14:00 WBC RBC Hgb Hct MCV MCHC RDW Plt Count MPV Neutrophils % Lymphocytes % Monocytes % Eosinophils % Basophils % Sodium Potassium Chloride Carbon Dioxide Anion Gap BUN Creatinine Creat Clearance w eGFR POC Glucometer 242 Random Glucose Fasting Glucose Calcium Total Bilirubin AST ALT Alkaline Phosphatase Total Protein Albumin Urine Color Yellow Urine Appearance Clear Urine pH 6.0 Ur Specific [place] <= 1.005 Urine Protein Negative Urine Glucose (UA) Negative Urine Ketones Trace H Urine Blood 1+ H Urine Nitrite Negative Urine Bilirubin Negative Urine Urobilinogen Negative Ur Leukocyte Esterase 2+ H Urine RBC 5 Urine WBC 1 Ur Epithelial Cells Rare Urine Bacteria Rare Urine Mucus Rare RPR Titer Nonreactive 10/08/16 10/09/16 10/09/16 16:24 05:43 07:00 WBC 11.3 H RBC 3.63 Hgb 12.1 Hct 36.6 MCV 100.7 H MCHC 33.1 RDW 15.1 Plt Count 194 D MPV 8.1 Neutrophils % Lymphocytes % Monocytes % Eosinophils % Basophils % Sodium Potassium Chloride Carbon Dioxide Anion Gap BUN Creatinine Creat Clearance w eGFR POC Glucometer 201 176 Random Glucose Fasting Glucose Calcium Total Bilirubin AST ALT Alkaline Phosphatase Total Protein Albumin Urine Color Urine Appearance Urine pH Ur Specific [place] Urine Protein Urine Glucose (UA) Urine Ketones Urine Blood Urine Nitrite Urine Bilirubin Urine Urobilinogen Ur Leukocyte Esterase Urine RBC Urine WBC Ur Epithelial Cells Urine Bacteria Urine Mucus RPR Titer 10/09/16 10/09/16 10/09/16 07:00 07:00 16:39 WBC RBC Hgb Hct MCV MCHC RDW Plt Count MPV Neutrophils % Lymphocytes % Monocytes % Eosinophils % Basophils % Sodium 139 Potassium 3.7 Chloride 99 Carbon Dioxide 30 Anion Gap 10 BUN 7 Creatinine 0.6 Creat Clearance w eGFR > 60 POC Glucometer 346 Random Glucose 202 H D Fasting Glucose Calcium 9.2 Total Bilirubin 0.5 D AST 23 D ALT 28 D Alkaline Phosphatase 85 D Total Protein 6.4 Albumin 2.9 L Urine Color Urine Appearance Urine pH Ur Specific [place] Urine Protein Urine Glucose (UA) Urine Ketones Urine Blood Urine Nitrite Urine Bilirubin Urine Urobilinogen Ur Leukocyte Esterase Urine RBC Urine WBC Ur Epithelial Cells Urine Bacteria Urine Mucus RPR Titer Nonreactive 10/10/16 10/10/16 10/10/16 05:40 07:50 07:50 WBC 12.8 H RBC 3.60 Hgb 11.9 Hct 36.5 MCV 101.6 H MCHC 32.5 RDW 15.5 Plt Count 186 MPV 8.2 Neutrophils % 71.4 Lymphocytes % 21.6 Monocytes % 5.0 Eosinophils % 1.5 D Basophils % 0.5 Sodium Potassium Chloride Carbon Dioxide Anion Gap BUN Creatinine Creat Clearance w eGFR POC Glucometer 205 Random Glucose Fasting Glucose 164 H Calcium Total Bilirubin AST ALT Alkaline Phosphatase Total Protein Albumin Urine Color Urine Appearance Urine pH Ur Specific [place] Urine Protein Urine Glucose (UA) Urine Ketones Urine Blood Urine Nitrite Urine Bilirubin Urine Urobilinogen Ur Leukocyte Esterase Urine RBC Urine WBC Ur Epithelial Cells Urine Bacteria Urine Mucus RPR Titer awake/alert lying in bed no acute distress Assessment: 10/10/16 11:27 hold 10am libirum resume later with detox Plan: continue detox as needed increase fluids psych ordered for medication adjustment
[2016-10-10] MEDS: LOPERAMIDE HCL 2 MG CAPSULE PO PRN (12:41)
[2016-10-10] MEDS: ACETAMINOPHEN 325 MG TABLET (FP) PO PRN (17:02)
[2016-10-10] MEDS: chlordiazePOXIDE 5 MG CAPSULE PO SCH ×2 (17:05→22:40)
[2016-10-10] MEDS: QUEtiapine FUMARATE 50 MG TABLET PO SCH (22:39)
[2016-10-10] MEDS: THIAMINE HCL 100 MG TABLET (FP) PO SCH (22:41)
[2016-10-11] MEDS: chlordiazePOXIDE 5 MG CAPSULE PO SCH ×2 (06:07→10:21)
[2016-10-11] MEDS: metFORMIN HCL 500 MG TABLET (FP) PO SCH ×2 (06:08→17:35)
[2016-10-11] MEDS: SUCRALFATE 1 GM/10 ML UNIT DOSE CUPS PO SCH ×2 (10:21→22:38)
[2016-10-11] MEDS: ESCITALOPRAM OXALATE 20 MG TABLET (FP) PO SCH (10:22)
[2016-10-11] MEDS: ENALAPRIL MALEATE 10 MG TABLET (FP) PO SCH (10:22)
[2016-10-11] MEDS: PRENATAL VITAMINS W/ FOLIC ACID TABLET (FP) PO SCH (10:22)
[2016-10-11] MEDS: cloNIDine HCL 0.1 MG TABLET PO SCH ×2 (10:35→22:39)
[2016-10-11] MEDS: NICOTINE 21 MG/24 HOURS TOPICAL PATCH TD SCH (10:35)
[2016-10-11] MEDS ORDERED: INSULIN (NOVOLOG) ASPART 100 UNITS/ML 10ML VIAL ONE ×2 (11:14→16:58)
[2016-10-11] MEDS: INSULIN SLIDING SCALE (NOVOLOG) 1 VIAL SQ SCH ×2 (11:16→17:37)
[2016-10-11] MEDS: ACETAMINOPHEN 325 MG TABLET (FP) PO PRN ×2 (12:25→18:02)
--- NOTE | 2016-10-11 13:57 | PN ---
BHS Progress Note (SOAP) Subjective: Sweating,interrupted sleep,restless Objective: 10/11/16 13:56 Vital Signs - 8 hr 10/11/16 10/11/16 06:57 10:00 Temperature 98.2 F 97.5 F L Pulse Rate 75 82 Respiratory 16 18 Rate Blood Pressure 101/63 89/74 Laboratory Last Values WBC 12.8 K/mm3 (4.0-10.0) H 10/10/16 07:50 RBC 3.60 M/mm3 (3.60-5.2) 10/10/16 07:50 Hgb 11.9 GM/dL (10.7-15.3) 10/10/16 07:50 Hct 36.5 % (32.4-45.2) 10/10/16 07:50 MCV 101.6 fl (80-96) H 10/10/16 07:50 MCHC 32.5 g/dl (32.0-36.0) 10/10/16 07:50 RDW 15.5 % (11.6-15.6) 10/10/16 07:50 Plt Count 186 K/MM3 (134-434) 10/10/16 07:50 MPV 8.2 fl (7.5-11.1) 10/10/16 07:50 Neutrophils % 71.4 % (42.8-82.8) 10/10/16 07:50 Lymphocytes % 21.6 % (8-40) 10/10/16 07:50 Monocytes % 5.0 % (3.8-10.2) 10/10/16 07:50 Eosinophils % 1.5 % (0-4.5) D 10/10/16 07:50 Basophils % 0.5 % (0-2.0) 10/10/16 07:50 Sodium 139 mmol/L (136-145) 10/09/16 07:00 Potassium 3.7 mmol/L (3.5-5.1) 10/09/16 07:00 Chloride 99 mmol/L (98-107) 10/09/16 07:00 Carbon Dioxide 30 mmol/L (21-32) 10/09/16 07:00 Anion Gap 10 (8-16) 10/09/16 07:00 BUN 7 mg/dL (7-18) 10/09/16 07:00 Creatinine 0.6 mg/dL (0.55-1.02) 10/09/16 07:00 Creat Clearance w eGFR > 60 (>60) 10/09/16 07:00 POC Glucometer 195 UNITS (()) 10/11/16 06:05 Random Glucose 202 mg/dL (74-106) H D 10/09/16 07:00 Fasting Glucose 164 mg/dL (70-105) H 10/10/16 07:50 Calcium 9.2 mg/dL (8.5-10.1) 10/09/16 07:00 Total Bilirubin 0.5 mg/dL (0.2-1.0) D 10/09/16 07:00 AST 23 U/L (15-37) D 10/09/16 07:00 ALT 28 U/L (12-78) D 10/09/16 07:00 Alkaline Phosphatase 85 U/L (45-117) D 10/09/16 07:00 Total Protein 6.4 g/dl (6.4-8.2) 10/09/16 07:00 Albumin 2.9 g/dl (3.4-5.0) L 10/09/16 07:00 Urine Color Yellow 10/08/16 14:00 Urine Appearance Clear 10/08/16 14:00 Urine pH 6.0 (5.0-8.0) 10/08/16 14:00 Ur Specific [place] <= 1.005 (1.005-1.025) 10/08/16 14:00 Urine Protein Negative (NEGATIVE) 10/08/16 14:00 Urine Glucose (UA) Negative (NEGATIVE) 10/08/16 14:00 Urine Ketones Trace (NEGATIVE) H 10/08/16 14:00 Urine Blood 1+ (NEGATIVE) H 10/08/16 14:00 Urine Nitrite Negative (NEGATIVE) 10/08/16 14:00 Urine Bilirubin Negative (NEGATIVE) 10/08/16 14:00 Urine Urobilinogen Negative E.U./dl (0.2-1.0) 10/08/16 14:00 Ur Leukocyte Esterase 2+ (NEGATIVE) H 10/08/16 14:00 Urine RBC 5 /hpf (0-3) 10/08/16 14:00 Urine WBC 1 /hpf (3-5) 10/08/16 14:00 Ur Epithelial Cells Rare /hpf (FEW) 10/08/16 14:00 Urine Bacteria Rare /hpf (NONE SEEN) 10/08/16 14:00 Urine Mucus Rare 10/08/16 14:00 RPR Titer Nonreactive (NONREACTIVE) 10/09/16 07:00 labs noted Assessment: 10/11/16 13:56 Withdrawal sx. Plan: Continue detox
[2016-10-11] MEDS: chlordiazePOXIDE HCL 10 MG CAPSULE PO SCH ×2 (17:35→22:39)
[2016-10-11] MEDS: LOPERAMIDE HCL 2 MG CAPSULE PO PRN (21:56)
[2016-10-11] MEDS: THIAMINE HCL 100 MG TABLET (FP) PO SCH (22:39)
[2016-10-11] MEDS: QUEtiapine FUMARATE 50 MG TABLET PO SCH (22:39)
[2016-10-12] MEDS: chlordiazePOXIDE HCL 10 MG CAPSULE PO SCH ×2 (06:06→10:46)
[2016-10-12] MEDS: metFORMIN HCL 500 MG TABLET (FP) PO SCH (06:06)
[2016-10-12] MEDS ORDERED: INSULIN (NOVOLOG) ASPART 100 UNITS/ML 10ML VIAL ONE (07:38)
[2016-10-12] MEDS: INSULIN SLIDING SCALE (NOVOLOG) 1 VIAL SQ SCH (07:39)
[2016-10-12 10:01] VITALS: BP 97/58; PULSE 78; TEMP 99.3
--- NOTE | 2016-10-12 10:21 | DS ---
[facility] Detox Discharge Summary Admission Date: 10/08/16 Discharge Date: 10/12/16 - History Present History: Alcohol Dependence, Cocaine Dependence Pertinent Past History: Type II DM HTN GERD Fatty Liver Disease - Physical Exam Results Vital Signs: Vital Signs Temperature 99.3 F 10/12/16 10:00 Pulse Rate 78 10/12/16 10:00 Respiratory Rate 18 10/12/16 10:00 Blood Pressure 97/58 10/12/16 10:00 O2 Sat by Pulse Oximetry (%) Pertinent Admission Physical Exam Findings: Withdrawal Sx. Laboratory Last Values WBC 12.8 K/mm3 (4.0-10.0) H 10/10/16 07:50 RBC 3.60 M/mm3 (3.60-5.2) 10/10/16 07:50 Hgb 11.9 GM/dL (10.7-15.3) 10/10/16 07:50 Hct 36.5 % (32.4-45.2) 10/10/16 07:50 MCV 101.6 fl (80-96) H 10/10/16 07:50 MCHC 32.5 g/dl (32.0-36.0) 10/10/16 07:50 RDW 15.5 % (11.6-15.6) 10/10/16 07:50 Plt Count 186 K/MM3 (134-434) 10/10/16 07:50 MPV 8.2 fl (7.5-11.1) 10/10/16 07:50 Neutrophils % 71.4 % (42.8-82.8) 10/10/16 07:50 Lymphocytes % 21.6 % (8-40) 10/10/16 07:50 Monocytes % 5.0 % (3.8-10.2) 10/10/16 07:50 Eosinophils % 1.5 % (0-4.5) D 10/10/16 07:50 Basophils % 0.5 % (0-2.0) 10/10/16 07:50 Sodium 139 mmol/L (136-145) 10/09/16 07:00 Potassium 3.7 mmol/L (3.5-5.1) 10/09/16 07:00 Chloride 99 mmol/L (98-107) 10/09/16 07:00 Carbon Dioxide 30 mmol/L (21-32) 10/09/16 07:00 Anion Gap 10 (8-16) 10/09/16 07:00 BUN 7 mg/dL (7-18) 10/09/16 07:00 Creatinine 0.6 mg/dL (0.55-1.02) 10/09/16 07:00 Creat Clearance w eGFR > 60 (>60) 10/09/16 07:00 POC Glucometer 176 UNITS (()) 10/12/16 06:05 Random Glucose 202 mg/dL (74-106) H D 10/09/16 07:00 Fasting Glucose 164 mg/dL (70-105) H 10/10/16 07:50 Calcium 9.2 mg/dL (8.5-10.1) 10/09/16 07:00 Total Bilirubin 0.5 mg/dL (0.2-1.0) D 10/09/16 07:00 AST 23 U/L (15-37) D 10/09/16 07:00 ALT 28 U/L (12-78) D 10/09/16 07:00 Alkaline Phosphatase 85 U/L (45-117) D 10/09/16 07:00 Total Protein 6.4 g/dl (6.4-8.2) 10/09/16 07:00 Albumin 2.9 g/dl (3.4-5.0) L 10/09/16 07:00 Urine Color Yellow 10/08/16 14:00 Urine Appearance Clear 10/08/16 14:00 Urine pH 6.0 (5.0-8.0) 10/08/16 14:00 Ur Specific [place] <= 1.005 (1.005-1.025) 10/08/16 14:00 Urine Protein Negative (NEGATIVE) 10/08/16 14:00 Urine Glucose (UA) Negative (NEGATIVE) 10/08/16 14:00 Urine Ketones Trace (NEGATIVE) H 10/08/16 14:00 Urine Blood 1+ (NEGATIVE) H 10/08/16 14:00 Urine Nitrite Negative (NEGATIVE) 10/08/16 14:00 Urine Bilirubin Negative (NEGATIVE) 10/08/16 14:00 Urine Urobilinogen Negative E.U./dl (0.2-1.0) 10/08/16 14:00 Ur Leukocyte Esterase 2+ (NEGATIVE) H 10/08/16 14:00 Urine RBC 5 /hpf (0-3) 10/08/16 14:00 Urine WBC 1 /hpf (3-5) 10/08/16 14:00 Ur Epithelial Cells Rare /hpf (FEW) 10/08/16 14:00 Urine Bacteria Rare /hpf (NONE SEEN) 10/08/16 14:00 Urine Mucus Rare 10/08/16 14:00 RPR Titer Nonreactive (NONREACTIVE) 10/09/16 07:00 labs noted - Treatment Hospital Course: Detox Protocol Followed, Detoxed Safely, Responded well, Discharged Condition Good, Rehab Referral Accepted Patient has Accepted a Rehab Referral to: [facility] - Medication Discharge Medications: Ambulatory Orders Albuterol Sulfate Inhaler - [Ventolin Hfa Inhaler -] 2 inh PO Q4H PRN 09/12/16 Clonidine HCl [Catapres -] 0.3 mg PO HS 09/12/16 Enalapril Maleate [Vasotec -] 10 mg PO DAILY 09/12/16 Escitalopram Oxalate [Lexapro -] 20 mg PO DAILY 09/12/16 Metformin HCl [Glucophage -] 1,000 mg PO BID 09/12/16 Quetiapine Fumarate [Seroquel -] 50 mg PO HS 09/12/16 Escitalopram Oxalate [Lexapro -] 20 mg PO DAILY #30 tablet 10/09/16 Quetiapine Fumarate [Seroquel -] 50 mg PO HS #30 tablet 10/09/16 - Diagnosis (1) Drug-induced mood disorder Current Visit: Yes Status: Acute (2) Fatty liver Current Visit: Yes Status: Acute (3) Asthma Current Visit: Yes Status: Chronic Qualifiers: Asthma severity: mild intermittent Asthma complication type: uncomplicated Qualified Code(s): J45.20 - Mild intermittent asthma, uncomplicated (4) Diabetes mellitus Current Visit: Yes Status: Chronic Qualifiers: Diabetes mellitus type: type 2 Diabetes mellitus complication status: without complication Diabetes mellitus detention insulin use: without exterminator helper use Qualified Code(s): E11.9 - Type 2 diabetes mellitus without complications (5) Hypertension Current Visit: Yes Status: Chronic Qualifiers: Hypertension type: essential hypertension Qualified Code(s): I10 - Essential (primary) hypertension (6) Alcohol dependence with uncomplicated withdrawal Current Visit: Yes Status: Acute (7) GERD (gastroesophageal reflux disease) Current Visit: Yes Status: Acute - AMA Did Patient Leave Against Medical Advice: No
[2016-10-12] MEDS: SUCRALFATE 1 GM/10 ML UNIT DOSE CUPS PO SCH (10:41)
[2016-10-12] MEDS: PRENATAL VITAMINS W/ FOLIC ACID TABLET (FP) PO SCH (10:41)
[2016-10-12] MEDS: ESCITALOPRAM OXALATE 20 MG TABLET (FP) PO SCH (10:42)
[2016-10-12] MEDS: NICOTINE 21 MG/24 HOURS TOPICAL PATCH TD SCH (10:43)
[2016-10-12] MEDS: cloNIDine HCL 0.1 MG TABLET PO SCH (10:44)
[2016-10-12] MEDS: ENALAPRIL MALEATE 10 MG TABLET (FP) PO SCH (10:44)
[2016-10-12 11:15] LABS: URINE APPEARANCE CLEAR; URINE BILIRUBIN NEGATIVE (NEGATIVE); URINE BLOOD NEGATIVE (NEGATIVE); URINE COLOR STRAW; URINE GLUCOSE (UA) NEGATIVE (NEGATIVE); URINE KETONE NEGATIVE (NEGATIVE); URINE NITRITE NEGATIVE (NEGATIVE); URINE PROTEIN NEGATIVE (NEGATIVE); URINE UROBILINOGEN NEGATIVE E.U./dl (0.2-1.0)
[2016-10-12 11:35] LABS: URINE LEUK ESTERASE 1+ (NEGATIVE)
[2016-10-12 11:38] LABS: URINE BACTERIA RARE /hpf (NONE SEEN); URINE RBC <1 /hpf (0-3); URINE WBC 1 /hpf (3-5)
== END 2016-10-12 11:28 | disposition other institution (70) | DRG 774 ==
LOC: YASAS 08:20 → Y6N 12:06
PROVIDERS: ADMIT Internal Medicine Addiction Medicine; ATTEND Internal Medicine Addiction Medicine
PROC: HZ2ZZZZ Detoxification Services for Substance Abuse Treatment (ICD-10-PCS; principal; 2016-10-12)
DX: F10.230 Alcohol dependence with withdrawal, uncomplicated (principal); F17.210 Nicotine dependence, cigarettes, uncomplicated; F14.10 Cocaine abuse, uncomplicated; F19.24 Other psychoactive substance dependence with psychoactive substance-induced mood disorder; E11.9 Type 2 diabetes mellitus without complications; Z79.84 Long term (current) use of oral hypoglycemic drugs; I10 Essential (primary) hypertension; J45.20 Mild intermittent asthma, uncomplicated; K21.9 Gastro-esophageal reflux disease without esophagitis; K25.3 Acute gastric ulcer without hemorrhage or perforation; D72.829 Elevated white blood cell count, unspecified; K76.0 Fatty (change of) liver, not elsewhere classified
CPT/HCPCS: 36415; 71020-TC; 80053; 81003; 81015; 82947; 85025; 85027; 86593; 93005; 93010; J0735

== ENCOUNTER 2016-10-12 11:20 | Inpatient (IN) | payer OTHER ==
[2016-10-12 12:19] VITALS: BMI 26.6
[2016-10-12] MEDS ORDERED: MAGNESIUM CITRATE 300 ML BOTTLE PO PRN (12:48)
[2016-10-12] MEDS ORDERED: guaiFENesin/D-METHORPHAN HB 10 ML UNIT-DOSE CUPS PO PRN (12:48)
[2016-10-12] MEDS ORDERED: LOPERAMIDE HCL 2 MG CAPSULE PO PRN (12:48)
[2016-10-12] MEDS ORDERED: NICOTINE POLACRILEX 2 MG GUM BUC PRN (12:48)
[2016-10-12] MEDS ORDERED: diphenhydrAMINE HCL 50 MG CAPSULE PO PRN (12:48)
[2016-10-12] MEDS ORDERED: ALBUTEROL SO4 6.7 GM HFA INHALER IH PRN (12:48)
[2016-10-12] MEDS ORDERED: MAGNESIUM HYDROX 2400MG/30ML ORAL SUSPENSION 30 ML CUP PO PRN (12:48)
[2016-10-12] MEDS ORDERED: MENTHOL/PHENOL 1 EACH UD MM PRN (12:48)
[2016-10-12] MEDS ORDERED: P-EPHED 60MG/TRIPROLIDI 2.5MG TABLET PO PRN (12:48)
--- NOTE | 2016-10-12 12:52 | HP ---
USHA JOHNSON Rehab Assess/Revision - Admission History Ad[facility] to Rehab [facility]: [facility] Date of Admission to Rehab: 10/12/16 - Vital signs Vital Signs: Vital Signs Period Temp Pulse Resp BP Sys/Cody Pulse Ox Last 24 Hr 97.8 F-97.8 F 74-74 16-16 108-108/74-74 - Findings Detox History & Physical reviewed: Yes Concur with findings: Yes
[2016-10-12] MEDS: IBUPROFEN 400 MG TABLET (FP) PO PRN (15:33)
[2016-10-12] MEDS: INSULIN (NOVOLOG) ASPART 100 UNITS/ML 10ML VIAL SQ SCH (16:34)
[2016-10-12] MEDS ORDERED: INSULIN (NOVOLOG) ASPART 100 UNITS/ML 10ML VIAL ONE (16:35)
[2016-10-12] MEDS: THIAMINE HCL 100 MG TABLET (FP) PO SCH (21:15)
[2016-10-12] MEDS: ENALAPRIL MALEATE 10 MG TABLET (FP) PO SCH (21:15)
[2016-10-12] MEDS: SUCRALFATE 1 GM/10 ML UNIT DOSE CUPS PO SCH (21:15)
[2016-10-12] MEDS ORDERED: metFORMIN HCL 500 MG TABLET (FP) PO SCH (22:00)
[2016-10-12] MEDS ORDERED: QUEtiapine FUMARATE 50 MG TABLET PO SCH (22:00)
[2016-10-13] MEDS: metFORMIN HCL 500 MG TABLET (FP) PO SCH ×2 (06:21→17:02)
[2016-10-13] MEDS: INSULIN (NOVOLOG) ASPART 100 UNITS/ML 10ML VIAL SQ SCH ×2 (06:22→17:02)
[2016-10-13] MEDS ORDERED: INSULIN (NOVOLOG) ASPART 100 UNITS/ML 10ML VIAL ONE ×2 (06:22→22:46)
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
[2016-10-13] MEDS: NICOTINE 21 MG/24 HOURS TOPICAL PATCH TD SCH (10:32)
[2016-10-13] MEDS: ESCITALOPRAM OXALATE 10 MG TABLET (FP) PO SCH (10:33)
[2016-10-13] MEDS: ENALAPRIL MALEATE 10 MG TABLET (FP) PO SCH ×2 (10:33→21:15)
[2016-10-13] MEDS: SUCRALFATE 1 GM/10 ML UNIT DOSE CUPS PO SCH ×2 (10:33→21:16)
[2016-10-13] MEDS: PRENATAL VITAMINS W/ FOLIC ACID TABLET (FP) PO SCH (10:33)
[2016-10-13] MEDS: IBUPROFEN 400 MG TABLET (FP) PO PRN (18:57)
[2016-10-13] MEDS: THIAMINE HCL 100 MG TABLET (FP) PO SCH (21:15)
[2016-10-13] MEDS ORDERED: PT OWN MED DRAWER 7, Y5N ONE (21:16)
[2016-10-13] MEDS: QUEtiapine FUMARATE 25 MG TABLET (FP) PO SCH (21:17)
[2016-10-14] MEDS: metFORMIN HCL 500 MG TABLET (FP) PO SCH ×2 (06:22→17:11)
[2016-10-14] MEDS: INSULIN (NOVOLOG) ASPART 100 UNITS/ML 10ML VIAL SQ SCH ×2 (06:38→17:13)
[2016-10-14] MEDS: SUCRALFATE 1 GM/10 ML UNIT DOSE CUPS PO SCH ×2 (10:07→21:16)
[2016-10-14] MEDS: ESCITALOPRAM OXALATE 10 MG TABLET (FP) PO SCH (10:07)
[2016-10-14] MEDS: NICOTINE 21 MG/24 HOURS TOPICAL PATCH TD SCH (10:07)
[2016-10-14] MEDS: PRENATAL VITAMINS W/ FOLIC ACID TABLET (FP) PO SCH (10:07)
[2016-10-14] MEDS: ENALAPRIL MALEATE 10 MG TABLET (FP) PO SCH ×2 (10:09→21:14)
[2016-10-14] MEDS: IBUPROFEN 400 MG TABLET (FP) PO PRN (12:16)
[2016-10-14] MEDS ORDERED: PT OWN MED DRAWER 7, Y5N ONE (13:22)
[2016-10-14] MEDS ORDERED: INSULIN (NOVOLOG) ASPART 100 UNITS/ML 10ML VIAL ONE ×2 (16:49→23:24)
[2016-10-14] MEDS: QUEtiapine FUMARATE 25 MG TABLET (FP) PO SCH (21:14)
[2016-10-14] MEDS: THIAMINE HCL 100 MG TABLET (FP) PO SCH (21:14)
[2016-10-15] MEDS: INSULIN (NOVOLOG) ASPART 100 UNITS/ML 10ML VIAL SQ SCH ×2 (06:09→16:25)
[2016-10-15] MEDS: metFORMIN HCL 500 MG TABLET (FP) PO SCH ×2 (06:09→16:25)
[2016-10-15] MEDS ORDERED: PT OWN MED DRAWER 7, Y5N ONE (08:12)
[2016-10-15] MEDS: MAG HYDROX/AL HYDROX/SIMETH 30 ML UNIT-DOSE CUP PO PRN (08:58)
[2016-10-15] MEDS: NICOTINE 21 MG/24 HOURS TOPICAL PATCH TD SCH (10:24)
[2016-10-15] MEDS: PRENATAL VITAMINS W/ FOLIC ACID TABLET (FP) PO SCH (10:24)
[2016-10-15] MEDS: ENALAPRIL MALEATE 10 MG TABLET (FP) PO SCH ×2 (10:24→21:19)
[2016-10-15] MEDS: ESCITALOPRAM OXALATE 10 MG TABLET (FP) PO SCH (10:24)
[2016-10-15] MEDS: SUCRALFATE 1 GM/10 ML UNIT DOSE CUPS PO SCH ×2 (10:24→21:20)
[2016-10-15] MEDS: IBUPROFEN 400 MG TABLET (FP) PO PRN (14:40)
--- NOTE | 2016-10-15 14:45 | PN ---
S Progress Note Note: Staff says that pt. appears confused Vital Signs - 8 hr 10/15/16 10/15/16 07:09 10:00 Temperature 98.5 F Pulse Rate 85 80 Respiratory 18 Rate Blood Pressure 103/66 139/85 Laboratory Last Values POC Glucometer 168 UNITS (()) 10/15/16 13:31 Exam : Pt. is alert,coherent and oriented x3. She was in bed when the nurses and I talked to her than she got up to get medication at the nurse's station. P : cbc,bmp & ammonia level in am d/c seroquel
[2016-10-15] MEDS: ACETAMINOPHEN 325 MG TABLET (FP) PO PRN (15:44)
[2016-10-15] MEDS: THIAMINE HCL 100 MG TABLET (FP) PO SCH (21:19)
[2016-10-15] MEDS ORDERED: LACTULOSE 20 GM/30 ML UDC (FOR ORAL USE ONLY) PO ONE (23:16)
[2016-10-16] MEDS: INSULIN (NOVOLOG) ASPART 100 UNITS/ML 10ML VIAL SQ SCH ×2 (06:19→17:55)
[2016-10-16] MEDS: metFORMIN HCL 500 MG TABLET (FP) PO SCH ×2 (06:19→17:55)
[2016-10-16 09:54] LABS: BASOPHIL 0.4 % (0-2.0); EOSINOPHIL 0.4 % (0-4.5); MCH 32.4 pg (25.7-33.7); MCHC 33.1 g/dl (32.0-36.0); MEAN PLT VOLUME 8.4 fl (7.5-11.1); NEUTROPHILS 71.2 % (42.8-82.8); PLATELET COUNT 279 K/MM3 (134-434); RDW 14.8 % (11.6-15.6); WHITE BLOOD COUNT 17.1 K/mm3 (4.0-10.0)
[2016-10-16] MEDS: SUCRALFATE 1 GM/10 ML UNIT DOSE CUPS PO SCH (09:55)
[2016-10-16] MEDS: MAG HYDROX/AL HYDROX/SIMETH 30 ML UNIT-DOSE CUP PO PRN (09:56)
[2016-10-16] MEDS: PRENATAL VITAMINS W/ FOLIC ACID TABLET (FP) PO SCH (09:56)
[2016-10-16] MEDS: ESCITALOPRAM OXALATE 10 MG TABLET (FP) PO SCH (09:56)
[2016-10-16] MEDS: ENALAPRIL MALEATE 10 MG TABLET (FP) PO SCH (09:57)
[2016-10-16] MEDS: NICOTINE 21 MG/24 HOURS TOPICAL PATCH TD SCH (09:57)
[2016-10-16 10:05] LABS: CALCIUM 9.2 mg/dL (8.5-10.1); COCKROFT - GAULT 104.3375; CREATININE 0.7 mg/dL (0.55-1.02)
[2016-10-16] MEDS: ACETAMINOPHEN 325 MG TABLET (FP) PO PRN (13:07)
--- NOTE | 2016-10-16 14:52 | PN ---
[facility] Progress Note Note: Pt. is more confused today. CBC reveals leukocytosis of 17,000, ammonia lelvel is 37.25 Vital Signs - 8 hr 10/16/16 10/16/16 10/16/16 06:53 09:12 13:13 Temperature 98.8 F Pulse Rate 76 82 73 Respiratory 18 Rate Blood Pressure 100/66 96/70 131/78 Laboratory Results - last 24 hr 10/16/16 10/16/16 10/16/16 06:18 07:00 07:00 WBC 17.1 H D RBC 3.98 Hgb 12.9 Hct 39.0 MCV 98.0 H MCHC 33.1 RDW 14.8 Plt Count 279 D MPV 8.4 Neutrophils % 71.2 Lymphocytes % 19.1 Monocytes % 8.9 Eosinophils % 0.4 Basophils % 0.4 Sodium 133 L Potassium 3.5 Chloride 90 L Carbon Dioxide 32 Anion Gap 11 BUN 9 D Creatinine 0.7 POC Glucometer 139 Random Glucose 136 H D Calcium 9.2 Ammonia 10/16/16 07:00 WBC RBC Hgb Hct MCV MCHC RDW Plt Count MPV Neutrophils % Lymphocytes % Monocytes % Eosinophils % Basophils % Sodium Potassium Chloride Carbon Dioxide Anion Gap BUN Creatinine POC Glucometer Random Glucose Calcium Ammonia 37.25 H Altered Mental Status with Lekocytosis P : transfer to ED for evaluation. Report given to Dr. Trevino
[2016-10-16 15:04] VITALS: BP 164/93; PULSE 80; TEMP 96
[2016-10-16] MEDS ORDERED: LACTULOSE 20 GM/30 ML UDC (FOR ORAL USE ONLY) PO SCH (22:00)
== END 2016-10-16 20:52 | disposition short-term general hospital (02) | DRG 772 ==
LOC: YASAS 11:20 → Y3E 11:21
PROVIDERS: ADMIT Psychiatry & Neurology Psychiatry; ATTEND Psychiatry & Neurology Psychiatry
PROC: HZ42ZZZ Group Counseling for Substance Abuse Treatment, Cognitive-Behavioral (ICD-10-PCS; principal; 2016-10-16)
DX: F10.230 Alcohol dependence with withdrawal, uncomplicated (principal); F12.20 Cannabis dependence, uncomplicated; F17.210 Nicotine dependence, cigarettes, uncomplicated; F19.24 Other psychoactive substance dependence with psychoactive substance-induced mood disorder; I10 Essential (primary) hypertension; J45.909 Unspecified asthma, uncomplicated; E11.9 Type 2 diabetes mellitus without complications; Z79.84 Long term (current) use of oral hypoglycemic drugs
CPT/HCPCS: 36415; 80048; 82140; 85025

== ENCOUNTER 2016-10-16 15:31 | Inpatient (IN) | payer OTHER ==
[2016-10-16 15:51] VITALS: BMI 29.2
[2016-10-16] MEDS ORDERED: LABETALOL HCL 5 MG/1 ML (100MG/20 ML VIAL) IVPUSH ONE (16:10)
[2016-10-16] MEDS ORDERED: ACETAMINOPHEN INJECTION 100 ML IVPB ONE (16:24)
--- NOTE | 2016-10-16 16:26 | PDOC ---
History of Present Illness - General History Source: Patient, Other (detox facility) Exam Limitations: Other ([facility]) - History of Present Illness Severity: severe <Angely Scott - Last Filed: 10/16/16 18:53> <Michele Trevino - Last Filed: 10/19/16 07:43> - General Chief Complaint: Altered Mental Status Stated Complaint: AMS Time Seen by Provider: 10/16/16 16:00 Past History - Past Medical History Anemia: No Asthma: Yes Cancer: No Cardiac Disorders: No CVA: No COPD: No CHF: No Dementia: No Diabetes: Yes (NIDDM) GI Disorders: Yes (gastric ulcer, cirrhosis) Disorders: No HTN: Yes Hypercholesterolemia: Yes Kidney Stones: No Liver Disease: Yes (h/o fatty liver ) Psychiatric Problems: Yes (depression, drug abuse, etoh abuse) Suicide Attempt (Hx): Yes (pill overdose in 2009) Seizures: No Thyroid Disease: No - Surgical History Abdominal Surgery: Yes (rt ovarian cyst) Appendectomy: Yes Cardiac Surgery: No Cholecystectomy: No Lung Surgery: No Neurologic Surgery: No Orthopedic Surgery: No - Reproductive History PID: No - Psycho/Social/Smoking Cessation Hx Anxiety: No Suicidal Ideation: No Smoking History: Unknown if ever smoked Have you smoked in the past 12 months: No Number of Cigarettes Smoked Daily: 20 Cigars Per Day: 0 Information on smoking cessation initiated: No 'Breaking Loose' booklet given: 10/08/16 Hx Alcohol Use: No Drug/Substance Use Hx: No Substance Use Type: Alcohol, Heroin Hx Substance Use Treatment: Yes <Angely Scott - Last Filed: 10/16/16 18:53> <Michele Trevino - Last Filed: 10/19/16 07:43> - Past Medical History Allergies/Adverse Reactions: Allergies Allergy/AdvReac Type Severity Reaction Status Date / Time No Known Allergies Allergy Verified 10/16/16 15:52 Home Medications: Ambulatory Orders Albuterol Sulfate Inhaler - [Ventolin Hfa Inhaler -] 2 inh PO Q4H PRN 09/12/16 Enalapril Maleate [Vasotec -] 10 mg PO BID 09/12/16 Metformin HCl [Glucophage -] 1,000 mg PO BID 09/12/16 Sucralfate [Carafate] 1 gm PO BID 10/12/16 Escitalopram Oxalate [Lexapro -] 10 mg PO DAILY 10/16/16 Thiamine HCl [B-1] 100 mg PO HS 10/16/16 Review of Systems - Review of Systems Able to Perform ROS?: No (2/2 mental status changes) <Angely Scott - Last Filed: 10/16/16 18:53> *Physical Exam - Vital Signs Last Vital Signs Temp Pulse Resp BP Pulse Ox 101.4 F H 90 18 194/100 96 10/16/16 15:36 10/16/16 15:36 10/16/16 15:36 10/16/16 15:36 10/16/16 15:36 - Physical Exam General Appearance: Yes: Appropriately Dressed. No: Apparent Distress HEENT: positive: Normal Voice Neck: positive: Supple Respiratory/Chest: positive: Lungs Clear, Normal Breath Sounds. negative: Respiratory Distress Cardiovascular: positive: Regular Rate, S1, S2 Gastrointestinal/Abdominal: positive: Tender (minimally tender diffusely), Soft. negative: Distended, Guarding, Rebound Musculoskeletal: negative: CVA Tenderness Extremity: positive: Normal Inspection Integumentary: positive: Dry, Warm Neurologic: positive: Alert, Motor Strength 5/5, Confused (oriented x 0) <Autumn ScottKandi - Last Filed: 10/16/16 18:53> - Vital Signs Last Vital Signs Temp Pulse Resp BP Pulse Ox 102.3 F H 89 24 178/88 98 10/16/16 16:27 10/16/16 16:27 10/16/16 16:27 10/16/16 16:27 10/16/16 16:27 <Michele Trevino - Last Filed: 10/19/16 07:43> Procedures - Consent Consent obtained: Written - Lumbar Puncture Indication: Meningitis CT Scan: Yes Betadine Prep: Yes Position: Left lateral decubitus Site: L4-L51 Local Anesthesia: 1% Lidocaine with epi Volume(ml): 4 Lumbar Puncture Kit: Adult Traumatic Tap: No Tubes Obtained: 4 Clear Fluid: Yes Complications: No <Michele Trevino - Last Filed: 10/19/16 07:43> ED Treatment Course - LABORATORY CBC & Chemistry Diagram: 10/16/16 16:00 10/16/16 16:00 - RADIOLOGY Radiology Studies Ordered: Category Date Time Status HEAD CT WITHOUT CONTRAST [CT] Stat CT Scan 10/16/16 16:10 Ordered <Angely Scott - Last Filed: 10/16/16 18:53> - LABORATORY CBC & Chemistry Diagram: 10/19/16 06:10 10/18/16 09:15 - ADDITIONAL ORDERS Additional order review: Laboratory Results 10/16/16 10/16/16 10/16/16 16:29 16:29 16:27 INR PTT (Actin FS) VBG pH POC VBG pCO2 POC VBG pO2 Mixed VBG HCO3 Sodium Potassium Chloride Carbon Dioxide Anion Gap BUN Creatinine Creat Clearance w eGFR Random Glucose Lactic Acid Calcium Total Bilirubin AST ALT Alkaline Phosphatase Ammonia Creatine Kinase Troponin I Total Protein Albumin Urine Color Straw Urine Appearance Clear Urine pH 8.0 D Urine Protein Negative Urine Glucose (UA) 2+ H Urine Ketones 1+ H Urine Blood Negative Urine Nitrite Negative Urine Bilirubin Negative Urine Urobilinogen Negative Ur Leukocyte Esterase Negative Opiates Screen Negative Methadone Screen Negative Barbiturate Screen Negative Phencyclidine Screen Negative Ur Amphetamines Screen Negative MDMA (Ecstasy) Screen Negative Benzodiazepines Screen Positive Cocaine Screen Negative U Marijuana (THC) Screen Positive Alcohol, Quantitative < 5.0 10/16/16 10/16/16 10/16/16 16:27 16:25 16:00 INR PTT (Actin FS) VBG pH 7.52 H POC VBG pCO2 35.7 L POC VBG pO2 34.8 Mixed VBG HCO3 28.7 H Sodium Potassium Chloride Carbon Dioxide Anion Gap BUN Creatinine Creat Clearance w eGFR Random Glucose Lactic Acid 3.3 H* Calcium Total Bilirubin AST ALT Alkaline Phosphatase Ammonia 22.08 Creatine Kinase Troponin I Total Protein Albumin Urine Color Urine Appearance Urine pH Urine Protein Urine Glucose (UA) Urine Ketones Urine Blood Urine Nitrite Urine Bilirubin Urine Urobilinogen Ur Leukocyte Esterase Opiates Screen Methadone Screen Barbiturate Screen Phencyclidine Screen Ur Amphetamines Screen MDMA (Ecstasy) Screen Benzodiazepines Screen Cocaine Screen U Marijuana (THC) Screen Alcohol, Quantitative 10/16/16 10/16/16 16:00 16:00 INR 1.11 PTT (Actin FS) 27.4 VBG pH POC VBG pCO2 POC VBG pO2 Mixed VBG HCO3 Sodium 129 L Potassium 3.0 L Chloride 84 L Carbon Dioxide 28 Anion Gap 17 H BUN 12 D Creatinine 1.1 H D Creat Clearance w eGFR 52.16 Random Glucose 233 H D Lactic Acid Calcium 9.4 Total Bilirubin 0.6 AST 33 D ALT 44 D Alkaline Phosphatase 100 Ammonia Creatine Kinase 50 Troponin I < 0.02 Total Protein 8.6 H D Albumin 3.9 D Urine Color Urine Appearance Urine pH Urine Protein Urine Glucose (UA) Urine Ketones Urine Blood Urine Nitrite Urine Bilirubin Urine Urobilinogen Ur Leukocyte Esterase Opiates Screen Methadone Screen Barbiturate Screen Phencyclidine Screen Ur Amphetamines Screen MDMA (Ecstasy) Screen Benzodiazepines Screen Cocaine Screen U Marijuana (THC) Screen Alcohol, Quantitative 10/16/16 16:00 RBC 4.34 MCV 97.5 H MCHC 32.9 RDW 14.9 MPV 8.6 Neutrophils % Y Lymphocytes % Y - RADIOLOGY Radiology Studies Ordered: Category Date Time Status CHEST X-RAY PORTABLE* [RAD] Stat Radiology 10/16/16 15:51 Ordered <Michele Trevino - Last Filed: 10/19/16 07:43> Medical Decision Making - Medical Decision Making 51 yo F, unclear psych h/o, polysubstance abuse, fatty liver,asthma, HTN, GERD, DM, sent from rehab at [facility] for AMS and fever. Pt has been inpt at detox facility for 4 days and is oriented x 3 at baseline. Today appeared confused and found to have low grade temp. As per staff, also noted to have wbc of 17 though as per records here at [facility], has h/o leukocytosis. Pt alert but oriented x 0 in ED. States she feels well then reports she has pain "all over". Denies WOODY , dizziness, neck stiffness, photophobia, focal weakness, cp, sob, abd pain, change in BM, n/v See exam AMS w/ fever Sig hypertensive in ED w/ low grade temp Exam otherwise unremarkable R/o infection/sepsis vs meningitis, possibly encephalopathic (2/2 ?HTN vs liver- known fatty liver dze) vs possible drug/toxidrome -tylenol -IVF -BP management -labs -drug screen -?CT/LP -admission anticipated 10/16/16 17:24 10/16/16 18:27 10/16/16 18:27 Labs w/ no signs of infxn so far. LP performed w/ clear CSF fluid, sent for analysis. Pt currently lying flat to prevent post LP WOODY. Empiric abx coverage intitiated. Continues to have AMS. Of note, +marijuana and benzo on utox. As per ED nurse now, is familiar with pt and states on prior visits, patient had appeared altered, though no documentation in embankment. If CSF neg for infxn, will consider CT abd lisa given poorly localized tenderness on exam. Will admit at this time 10/16/16 18:34 10/16/16 18:53 Dr Brandt aware and pt admitted <Angely Scott - Last Filed: 10/16/16 18:53> *DC/Admit/Observation/Transfer - Discharge Dispostion Admit: Yes <Angely Scott - Last Filed: 10/16/16 18:53> <Michele Trevino - Last Filed: 10/19/16 07:43> Diagnosis at time of Disposition: Altered mental status Qualifiers: Altered mental status type: unspecified Qualified Code(s): R41.82 - Altered mental status, unspecified Fever Qualifiers: Fever type: unspecified Qualified Code(s): R50.9 - Fever, unspecified - Discharge Dispostion Condition at time of disposition: Fair - Referrals
[2016-10-16 16:32] LABS: VENOUS PH 7.52 (7.32-7.42)
[2016-10-16 16:34] LABS: VENOUS BLOOD GAS HCO3 28.7 meq/L (19-25)
[2016-10-16 16:43] LABS: MCH 32.1 pg (25.7-33.7); MCHC 32.9 g/dl (32.0-36.0); MEAN CELL VOLUME 97.5 fl (80-96); MEAN PLT VOLUME 8.6 fl (7.5-11.1); PLATELET COUNT 323 K/MM3 (134-434); RDW 14.9 % (11.6-15.6); WHITE BLOOD COUNT 20.7 K/mm3 (4.0-10.0)
[2016-10-16 16:47] LABS: URINE APPEARANCE CLEAR; URINE BILIRUBIN NEGATIVE (NEGATIVE); URINE BLOOD NEGATIVE (NEGATIVE); URINE COLOR STRAW; URINE GLUCOSE (UA) 2+ (NEGATIVE); URINE KETONE 1+ (NEGATIVE); URINE LEUK ESTERASE NEGATIVE (NEGATIVE); URINE NITRITE NEGATIVE (NEGATIVE); URINE PROTEIN NEGATIVE (NEGATIVE); URINE UROBILINOGEN NEGATIVE E.U./dl (0.2-1.0)
[2016-10-16 16:55] LABS: INR 1.11 (0.82-1.09); PROTHROMBIN TIME (PATIENT) 12.2 SEC (9.98-11.88)
[2016-10-16 16:57] LABS: URINE MARIJUANA THC POSITIVE ng/ml (CUTOFF=50)
[2016-10-16 16:58] LABS: ACTIVATED PTT 27.4 SECONDS (26.9-34.4)
[2016-10-16 17:07] LABS: ALBUMIN 3.9 g/dl (3.4-5.0); ANION GAP 17 (8-16); BILIRUBIN,TOTAL 0.6 mg/dL (0.2-1.0); CALCIUM 9.4 mg/dL (8.5-10.1); CO2 28 mmol/L (21-32); COCKROFT - GAULT 72.8195; CREATININE 1.1 mg/dL (0.55-1.02); GLUCOSE,RANDOM 233 mg/dL (74-106); SGOT/AST 33 U/L (15-37); SGPT/ALT 44 U/L (12-78); TOT PROT 8.6 g/dl (6.4-8.2)
[2016-10-16 17:09] LABS: ALK PHOS 100 U/L (45-117); TROPONIN I < 0.02 ng/ml (0.00-0.05)
[2016-10-16] MEDS ORDERED: SODIUM CHLORIDE 1,000 ML IV STA (17:25)
[2016-10-16] MEDS ORDERED: POTASSIUM CHLORIDE ORAL LIQUID 20 MEQ/15 ML PO ONE (17:26)
[2016-10-16] MEDS ORDERED: LIDOCAINE HCL/PF 1% SDV 5ML VIAL ONE (17:46)
[2016-10-16] MEDS ORDERED: POTASSIUM CHLORIDE ORAL LIQUID 20 MEQ/15 ML ONE (18:03)
--- NOTE | 2016-10-16 18:15 | PDOC ---
*Physical Exam - Vital Signs Last Vital Signs Temp Pulse Resp BP Pulse Ox 101.1 F H 76 20 160/78 97 10/16/16 18:00 10/16/16 18:00 10/16/16 18:00 10/16/16 18:00 10/16/16 18:00 ED Treatment Course - LABORATORY CBC & Chemistry Diagram: 10/20/16 06:00 10/19/16 06:10 - ADDITIONAL ORDERS Additional order review: Laboratory Results 10/16/16 10/16/16 10/16/16 16:36 16:29 16:29 INR PTT (Actin FS) VBG pH POC VBG pCO2 POC VBG pO2 Mixed VBG HCO3 Sodium Potassium Chloride Carbon Dioxide Anion Gap BUN Creatinine Creat Clearance w eGFR Random Glucose Lactic Acid Calcium Total Bilirubin AST ALT Alkaline Phosphatase Ammonia Creatine Kinase Troponin I Total Protein Albumin Lipase 103 Urine Color Straw Urine Appearance Clear Urine pH 8.0 D Urine Protein Negative Urine Glucose (UA) 2+ H Urine Ketones 1+ H Urine Blood Negative Urine Nitrite Negative Urine Bilirubin Negative Urine Urobilinogen Negative Ur Leukocyte Esterase Negative Opiates Screen Negative Methadone Screen Negative Barbiturate Screen Negative Phencyclidine Screen Negative Ur Amphetamines Screen Negative MDMA (Ecstasy) Screen Negative Benzodiazepines Screen Positive Cocaine Screen Negative U Marijuana (THC) Screen Positive Alcohol, Quantitative Blood Type Antibody Screen 10/16/16 10/16/16 10/16/16 16:27 16:27 16:25 INR PTT (Actin FS) VBG pH 7.52 H POC VBG pCO2 35.7 L POC VBG pO2 34.8 Mixed VBG HCO3 28.7 H Sodium Potassium Chloride Carbon Dioxide Anion Gap BUN Creatinine Creat Clearance w eGFR Random Glucose Lactic Acid Calcium Total Bilirubin AST ALT Alkaline Phosphatase Ammonia 22.08 Creatine Kinase Troponin I Total Protein Albumin Lipase Urine Color Urine Appearance Urine pH Urine Protein Urine Glucose (UA) Urine Ketones Urine Blood Urine Nitrite Urine Bilirubin Urine Urobilinogen Ur Leukocyte Esterase Opiates Screen Methadone Screen Barbiturate Screen Phencyclidine Screen Ur Amphetamines Screen MDMA (Ecstasy) Screen Benzodiazepines Screen Cocaine Screen U Marijuana (THC) Screen Alcohol, Quantitative < 5.0 Blood Type Antibody Screen 10/16/16 10/16/16 10/16/16 16:07 16:00 16:00 INR PTT (Actin FS) VBG pH POC VBG pCO2 POC VBG pO2 Mixed VBG HCO3 Sodium 129 L Potassium 3.0 L Chloride 84 L Carbon Dioxide 28 Anion Gap 17 H BUN 12 D Creatinine 1.1 H D Creat Clearance w eGFR 52.16 Random Glucose 233 H D Lactic Acid 3.3 H* Calcium 9.4 Total Bilirubin 0.6 AST 33 D ALT 44 D Alkaline Phosphatase 100 Ammonia Creatine Kinase 50 Troponin I < 0.02 Total Protein 8.6 H D Albumin 3.9 D Lipase Urine Color Urine Appearance Urine pH Urine Protein Urine Glucose (UA) Urine Ketones Urine Blood Urine Nitrite Urine Bilirubin Urine Urobilinogen Ur Leukocyte Esterase Opiates Screen Methadone Screen Barbiturate Screen Phencyclidine Screen Ur Amphetamines Screen MDMA (Ecstasy) Screen Benzodiazepines Screen Cocaine Screen U Marijuana (THC) Screen Alcohol, Quantitative Blood Type O POSITIVE Antibody Screen Negative 10/16/16 16:00 INR 1.11 PTT (Actin FS) 27.4 VBG pH POC VBG pCO2 POC VBG pO2 Mixed VBG HCO3 Sodium Potassium Chloride Carbon Dioxide Anion Gap BUN Creatinine Creat Clearance w eGFR Random Glucose Lactic Acid Calcium Total Bilirubin AST ALT Alkaline Phosphatase Ammonia Creatine Kinase Troponin I Total Protein Albumin Lipase Urine Color Urine Appearance Urine pH Urine Protein Urine Glucose (UA) Urine Ketones Urine Blood Urine Nitrite Urine Bilirubin Urine Urobilinogen Ur Leukocyte Esterase Opiates Screen Methadone Screen Barbiturate Screen Phencyclidine Screen Ur Amphetamines Screen MDMA (Ecstasy) Screen Benzodiazepines Screen Cocaine Screen U Marijuana (THC) Screen Alcohol, Quantitative Blood Type Antibody Screen 10/16/16 16:00 RBC 4.34 MCV 97.5 H MCHC 32.9 RDW 14.9 MPV 8.6 Neutrophils % Y Lymphocytes % Y - RADIOLOGY Radiology Studies Ordered: Category Date Time Status CHEST X-RAY PORTABLE* [RAD] Stat Radiology 10/16/16 15:51 Ordered - Medications Given in the ED: ED Medications Discontinued Medications Generic Name Dose Route Start Last Admin Trade Name Freq PRN Reason Stop Dose Admin Labetalol HCl 20 mg 10/16/16 16:10 10/16/16 17:50 Normodyne Injection - IVPUSH 10/16/16 16:11 10 mg ONCE ONE Administration Potassium Chloride 40 meq 10/16/16 17:26 10/16/16 18:05 Potassium Chloride Oral Liquid PO 10/16/16 17:27 40 meq ONCE ONE Administration Medical Decision Making - Medical Decision Making 10/16/16 18:14 The patient was seen and evaluated in conjunction with ARMIDA Scott under my direct supervision, ancillary studies were reviewed. I independently interviewed and evaluated the patient and I agree with the plan as outlined by ARMIDA Scott . 51y F hx of etoh abuse was at [facility] for detox, sent to the ED for evaluation for fever and AMS. pt noted to have leukcytosis which seems to have in the past (ranges from high normal up to high teens). pts cxr appears clear of infiltrate, UA is clean pt is s/p LP, awaiting results for possible meningits for AMS/fever if negative, will obtain CT abdomen as pt does have some mild diffuse tenderness will admit for further management pt written for ctx, vancomycin, flagyl for empiric coverage *DC/Admit/Observation/Transfer Diagnosis at time of Disposition: Altered mental status Qualifiers: Altered mental status type: unspecified Qualified Code(s): R41.82 - Altered mental status, unspecified Fever Qualifiers: Fever type: unspecified Qualified Code(s): R50.9 - Fever, unspecified - Discharge Dispostion Disposition: I.P. ALCOHOL/SUBS ABUSE REHAB Condition at time of disposition: Stable - Prescriptions
[2016-10-16] MEDS ORDERED: IBUPROFEN 400 MG TABLET (FP) PO ONE ×2 (18:25→18:28)
[2016-10-16] MEDS ORDERED: METRONIDAZOLE 500 MG PREMIXED 100 ML IVPB ONE ×2 (18:31→18:38)
[2016-10-16] MEDS ORDERED: VANCOMYCIN 1,000 MG in DEXTROSE 5%-WATER - 250 ML IVPB ONE (18:31)
[2016-10-16] MEDS ORDERED: CEFTRIAXONE 2 GM in DEXTROSE 5%-WATER - 50 ML IVPB ONE (18:31)
[2016-10-16] MEDS ORDERED: CEFTRIAXONE 100 ML IVPB ONE (18:37)
[2016-10-16 19:15] LABS: GLUCOSE,CSF 48 mg/dL (50-80)
[2016-10-16 20:03] LABS: CSF APPEARANCE CLEAR; CSF COLOR COLORLESS; CSF RBC 1 /mm3
[2016-10-16 20:04] LABS: CSF APPEARANCE CLEAR; CSF COLOR COLORLESS; CSF RBC 0 /mm3
--- NOTE | 2016-10-16 20:27 | PN ---
<GiorgioTobiasMichelle - Last Filed: 10/16/16 20:26> Teaching Attending Note Name of Resident: Gurwinder Lorenzo <Mary Simon - Last Filed: 10/17/16 01:20> Teaching Attending Note ATTENDING PHYSICIAN STATEMENT I saw and evaluated the patient. I reviewed the resident's note and discussed the case with the resident. I agree with the resident's findings and plan as documented. SUBJECTIVE: 51 yo F sent from rehab at [facility] for AMS and fever. Upon evaluation in the ED, patient was found to have a fever of 100.2. Endorses diarrhea 4x daily. Patient denies photophobia. Patient denies nausea, vomiting. PMHx: unclear psych h/o, polysubstance abuse, fatty liver,asthma, HTN, GERD, DM , gastric ulcer OBJECTIVE: Last Vital Signs Temp Pulse Resp BP Pulse Ox 99.9 F H 71 18 105/51 99 10/17/16 01:00 10/17/16 01:00 10/17/16 01:00 10/17/16 01:00 10/17/16 01:00 GENERAL: Awake, alert, and fully oriented, in no acute distress HEENT: Atraumatic. PERRLA, EOMI. Moist mucosa. No JVD. L cervical lymphadenopathy tender to palpation. LUNGS: No distress, speaks full sentences, clear to auscultation bilaterally HEART: Irregular rate and rhythm, normal S1 and S2, no murmurs, rubs or gallops , peripheral pulses normal and equal bilaterally. ABDOMEN: Soft, tenderness to epigastric region, normoactive bowel sounds. No guarding, no rebound. No masses EXTREMITIES: Normal inspection, Normal range of motion, no edema. No clubbing or Cyanosis. NEUROLOGICAL: Cranial nerves II through XII grossly intact. Normal speech, normal gait, no focal sensorimotor deficits SKIN: Warm, Dry, normal turgor, no rashes or lesions noted. CBCD WBC 20.7 K/mm3 (4.0-10.0) H 10/16/16 16:00 RBC 4.34 M/mm3 (3.60-5.2) 10/16/16 16:00 Hgb 13.9 GM/dL (10.7-15.3) 10/16/16 16:00 Hct 42.3 % (32.4-45.2) 10/16/16 16:00 MCV 97.5 fl (80-96) H 10/16/16 16:00 MCHC 32.9 g/dl (32.0-36.0) 10/16/16 16:00 RDW 14.9 % (11.6-15.6) 10/16/16 16:00 Plt Count 323 K/MM3 (134-434) 10/16/16 16:00 MPV 8.6 fl (7.5-11.1) 10/16/16 16:00 CMP Sodium 129 mmol/L (136-145) L 10/16/16 16:00 Potassium 3.0 mmol/L (3.5-5.1) L 10/16/16 16:00 Chloride 84 mmol/L (98-107) L 10/16/16 16:00 Carbon Dioxide 28 mmol/L (21-32) 10/16/16 16:00 Anion Gap 17 (8-16) H 10/16/16 16:00 BUN 12 mg/dL (7-18) D 10/16/16 16:00 Creatinine 1.1 mg/dL (0.55-1.02) H D 10/16/16 16:00 Creat Clearance w eGFR 52.16 (>60) 10/16/16 16:00 Calcium 9.4 mg/dL (8.5-10.1) 10/16/16 16:00 Total Bilirubin 0.6 mg/dL (0.2-1.0) 10/16/16 16:00 AST 33 U/L (15-37) D 10/16/16 16:00 ALT 44 U/L (12-78) D 10/16/16 16:00 Alkaline Phosphatase 100 U/L (45-117) 10/16/16 16:00 Total Protein 8.6 g/dl (6.4-8.2) H D 10/16/16 16:00 Albumin 3.9 g/dl (3.4-5.0) D 10/16/16 16:00 ASSESSMENT AND PLAN: Sepsis r/o meningitis r/o cdiff -AMS -Stool cult for c diff -IVF -Repeat lactic acid @ 11:30 Documentation is prepared by Mary Simon acting as medical staff coordinator for Michelle Alvares M.D.
[2016-10-16] MEDS ORDERED: FOLIC ACID INJECTION - 1 MG, THIAMINE HCL 100 MG, MULTIVIT INJECTION ADULT 10 ML in SOD... IVPB ONE (21:01)
--- NOTE | 2016-10-16 21:24 | HP ---
CHIEF COMPLAINT: PCP: Dr. zenaida Francis HISTORY OF PRESENT ILLNESS: 51 y/o F receiving treatment at [facility] for Etoh detox was sent via EMS to ED for evaluation of fever of 100.2 and AMS. PMH significant for gastric Ulcers, Substance abuse, Bipolar, schizophrenia, diabetic neuropathy. On initial presentation to the ED patient was alert but not oriented and therefore a poor historian, she was forgetful and has poor insight as why she is in the hospital. On my evaluation patient was A&Ox3. As per medical chart, patient noted to have had diarrhea for 4 days and on arrival to ED patient was febrile, with leukocytosis. Review of prior records show leukocytosis in the past. patient has a history of gastric ulcers and it is unclear if she recieved H pylori treatment. She denies chills, diaphoresis, generalized weakness. She denies chest pain, shortness of breath, cough. She denies nausea, vomiting, diarrhea, dysuria, hematuria, urinary frequency and urgency, flank pain, vaginal discharge/vaginal bleeding. She denies or hepatitis or HIV. HIV negative 09/12/16 ER course was notable for: (1)CT head no acute pathology (2)LP (3)IVF, antibiotics Recent Travel: No Medical History: Asthma, Abscess history, Fatty liver history, Gastric ulcer history, Hyponatremia history, DM-2, HTN Psychiatric History: depression with suicidal attempt by OD, last psychiatric admission more than 10 years ago. PAST SURGICAL HISTORY: Yes: Appendectomy, Oopherectomy (right sided for tubal- ovarian abscess), laparotomy for ovarian cyst Social History: lives alone in apartment - Substance Abuse/Tx History Hx Alcohol Use: Yes (reports drinking heavily about 2 yo) Hx Substance Use: Yes (marijuana since 7 yo) Substance Use Type: Alcohol, Marijuana, denies IVDA Family History: unknown Allergies No Known Allergies Allergy (Verified 10/16/16 15:52) HOME MEDICATIONS: Home Medications Medication Instructions Recorded Albuterol Sulfate Inhaler - 2 inh PO Q4H PRN 09/12/16 [Ventolin Hfa Inhaler -] Enalapril Maleate [Vasotec -] 10 mg PO BID 09/12/16 Metformin HCl [Glucophage -] 1,000 mg PO BID 09/12/16 Sucralfate [Carafate] 1 gm PO BID 10/12/16 Escitalopram Oxalate [Lexapro -] 10 mg PO DAILY 10/16/16 Thiamine HCl [B-1] 100 mg PO HS 10/16/16 REVIEW OF SYSTEMS CONSTITUTIONAL: fever Absent: chills, diaphoresis, generalized weakness, malaise, loss of appetite, weight change HEENT: Absent: rhinorrhea, nasal congestion, throat pain, throat swelling, difficulty swallowing, mouth swelling, ear pain, eye pain, visual changes CARDIOVASCULAR: Absent: chest pain, syncope, palpitations, irregular heart rate, lightheadedness , peripheral edema RESPIRATORY: Absent: cough, shortness of breath, dyspnea with exertion, orthopnea, wheezing, stridor, hemoptysis GASTROINTESTINAL:abdominal pain,diarrhea Absent: abdominal distension, nausea, vomiting, , constipation, melena, hematochezia GENITOURINARY: Absent: dysuria, frequency, urgency, hesitancy, hematuria, flank pain, genital pain MUSCULOSKELETAL: Absent: myalgia, arthralgia, joint swelling, back pain, neck pain SKIN: Absent: rash, itching, pallor HEMATOLOGIC/IMMUNOLOGIC: Absent: easy bleeding, easy bruising, lymphadenopathy, frequent infections ENDOCRINE: Absent: unexplained weight gain, unexplained weight loss, heat intolerance, cold intolerance NEUROLOGIC: Absent: headache, focal weakness or paresthesias, dizziness, unsteady gait, seizure, mental status changes, bladder or bowel incontinence PSYCHIATRIC: Absent: anxiety, depression, suicidal or homicidal ideation, hallucinations. PHYSICAL EXAMINATION Vital Signs - 24 hr 10/16/16 10/16/16 19:00 19:20 Temperature 101.7 F H 101.6 F H Pulse Rate [ 87 84 Radial] Respiratory 20 18 Rate Blood Pressure 170/109 161/87 [Left Arm] O2 Sat by Pulse 100 96 Oximetry (%) GENERAL: Awake, alert, and fully oriented, in no acute distress. forgetful, poor insight,Unkempt HEAD: Normal with no signs of trauma. EYES: Pupils equal, round and reactive to light, Vertical nystagmus, extra- ocular movements intact, sclera anicteric, conjunctiva clear. EARS, NOSE, THROAT: Ears normal, nares patent, oropharynx erythema without exudates, uvula midline NECK: Normal range of motion, supple, Left soft non mobile tender cervical adenopathy , JVD, or masses. LUNGS: Breath sounds equal, clear to auscultation bilaterally. No wheezes, and no crackles. No accessory muscle use. HEART: Regular rate and rhythm, normal S1 and S2 without murmur, rub or gallop. ABDOMEN: Soft, nontender, not distended, normoactive bowel sounds, no guarding, no rebound, no masses. No hepatomegaly or splenomegaly. MUSCULOSKELETAL: diffused tenderness, Normal range of motion at all joints. No bony deformities or tenderness. No CVA tenderness. LOWER EXTREMITIES: diffused B/L LE tenderness especially feet , 2+ pulses, warm , well-perfused. No calf tenderness. No peripheral edema. NEUROLOGICAL: Cranial nerves II-XII intact. Normal speech. Romberg negative, UE intentional tremors, Speech Pattern Delayed PSYCHIATRIC: Cooperative. Good eye contact. Appropriate mood and flat affect. denies any suicidal ideation SKIN: Warm, dry, normal turgor, no rashes or lesions noted, normal capillary refill. Laboratory Tests 10/16/16 10/16/16 18:20 18:26 CSF Appearance Clear Clear CSF Color Colorless Colorless CSF WBC 0 0 CSF RBC 1 0 CSF Neutrophils Y Y CSF Glucose Cancelled 48 L CSF Total Protein Cancelled 105 H CXR: No significant interval change or acute lung disease is present CT scan of the brain without intravenous contrast. There is minimal volume loss. The ventricles and basal cisterns appear unremarkable. No mass lesion , focal acute infarct or intracranial hemorrhage is identified. There is no shift of the midline structures. Visualized paranasal sinuses and mastoid air cells are well aerated. There is mild calcification of the cavernous carotid arteries. The calvarium is intact Impression: Minimal volume loss without evidence of acute intracranial pathology. Correlate clinically to determine further evaluation and follow-up CT Abd Pelvis: The liver is slightly enlarged measuring 18.5 cm in craniocaudal length with homogeneous enhancement. The spleen, gallbladder, both adrenal glands and both kidneys appear unremarkable. The stomach is partially distended significantly limiting evaluation of its wall. However, there is suggestion of thickening of the gastric antrum wall. The pancreas appears unremarkable. There is no evidence of small bowel obstruction. Fluid-filled slightly dilated small bowel loops in the right mid abdomen measuring 2.4 cm in diameter. The terminal ileum appears unremarkable. Appendix is not identified. Normal stool burden in the colon without wall thickening. Normal size uterus. Calcified atheromatous plaques in the abdominal aorta down through its bifurcation. A Rosales catheter is present within a decompressed urinary bladder with intraluminal air. Visualized osseous structures appear intact ASSESSMENT/PLAN: 51 Y F sent from detox at [facility] for evaluation of fever and AMS, patient found to severe sepsis possible GI infection vs URI vs malignancy. Sever sepsis with leukocytis, febrile, AMS, Lactic acidosis, BP stable. likely GI source in light of history of 4xdiarrhea, possible ilius on CT, and anterior antrum wall thickening. Tender lymph nodes with erythatus pharynx, possible bacterial infection; less likely retropheryngela abcess, as no dysphasia, no nasal dyscharge, no notable bulging in pharynx, and Uvula midline. Less likely meningitis as LP unremarkable( slightly elevated protein, and borderline low glucose). acute stroke unlikely as patient mental status improved and no acute finding per head CT. Leukocytosis pt noted to have leukocytosis which seems to have in the past (ranges from high normal up to high teens) with history of gastric ulcer, lymph nodes, and ct finding will consult GI to rule out malignancy. Sever sepsis IVF Ceftriaxon Vanco metronizidole acyclovir 10 mg/kg three times daily intravenously ID consult f/u CSF cultures, Bcx, Ucx, sputum cx Abd pain: possible Ileus and Thickening of the gastric antrum wall on CT r/o malignancy in light history of ulcers, chronic leukocytosis, lymphadenopathy GI consult AMS: Ct Head unremarkable, Improving currently AAOx3, yet is forgetful, unclear what her base line. RA: currently complains of join pain Asthma :controlled continue Bronchio dilators PRN Depression: continue home meds Diabetes mellitus ISS Fatty liver evaluate as outpatient History of cocaine abuse: denies any current use drug screen negative Gastric ulcer PPI History of alcohol dependence: last drink more than one week ago. no sign of acute alcohol withdraw; not anxious, mild tremors in hand. Banana bag IV fluids Hypertension hold antihypertensive meds as patient is septic Nicotine dependence continue patient Nicotine patch Substance induced mood disorder: tox screen negative patient is interested in returning to a detox program hypokalemia: KCl 40meg po given repeat bmp in am Prophylaxis DVT: heparin 5,000units sq q8h Gi: protonix FEN replete electrolytes as needed diabetic diet Dispo:will admit to [facility]sur Visit type - Emergency Visit Emergency Visit: Yes ED Registration Date: 06/08/17 Care time: The patient presented to the Emergency Department on the above date and was hospitalized for further evaluation of their emergent condition. - New Patient This patient is new to me today: Yes Date on this admission: 10/17/16 - Critical Care Critical Care patient: No
[2016-10-16] MEDS ORDERED: NOREPINEPHRINE BITARTRATE 8,000 MCG in DEXTROSE 5%-WATER - 492 ML IV SCH (21:30)
[2016-10-16 21:42] LABS: PLATELET ESTIMATE ADEQUATE (NORMAL)
[2016-10-16] MEDS ORDERED: ACYCLOVIR INJECTION 800 MG in DEXTROSE 5%-WATER - 100 ML IVPB SCH (21:45)
[2016-10-16] MEDS: PANTOPRAZOLE 40 MG TABLET (FP) PO SCH (22:25)
[2016-10-16] MEDS: HEPARIN NA (PORCINE) 5,000 UNITS/ML 1ML VIAL SQ SCH (22:25)
[2016-10-16] MEDS: ACETAMINOPHEN 325 MG TABLET (FP) PO PRN (22:53)
[2016-10-16] MEDS ORDERED: ACETAMINOPHEN 325 MG TABLET (FP) ONE (22:53)
[2016-10-16] MEDS ORDERED: HEPARIN NA (PORCINE) 5,000 UNITS/ML 1ML VIAL ONE (23:03)
[2016-10-16] MEDS ORDERED: PANTOPRAZOLE 40 MG TABLET (FP) ONE (23:03)
[2016-10-16] MEDS ORDERED: VANCOMYCIN 1 GRAM (PRE-DOCKED) 250 ML IVPB ONE (23:17)
[2016-10-17] MEDS: ACYCLOVIR INJECTION 800 MG in DEXTROSE 5%-WATER - 250 ML IVPB SCH ×2 (01:38→03:33)
[2016-10-17] MEDS: SODIUM CHLORIDE 1,000 ML IV SCH ×2 (06:32→22:00)
[2016-10-17] MEDS: HEPARIN NA (PORCINE) 5,000 UNITS/ML 1ML VIAL SQ SCH ×3 (06:33→22:01)
[2016-10-17 07:46] LABS: BASOPHIL 0.4 % (0-2.0); EOSINOPHIL 0.2 % (0-4.5); MCH 32.4 pg (25.7-33.7); MCHC 33.3 g/dl (32.0-36.0); MEAN CELL VOLUME 97.3 fl (80-96); MEAN PLT VOLUME 7.7 fl (7.5-11.1); NEUTROPHILS 69.7 % (42.8-82.8); PLATELET COUNT 276 K/MM3 (134-434); RDW 14.7 % (11.6-15.6)
[2016-10-17 07:58] LABS: INR 1.19 (0.82-1.09); PROTHROMBIN TIME (PATIENT) 13.1 SEC (9.98-11.88)
[2016-10-17 08:00] LABS: ACTIVATED PTT 28.2 SECONDS (26.9-34.4)
[2016-10-17 08:10] LABS: ALBUMIN 2.8 g/dl (3.4-5.0); ALK PHOS 67 U/L (45-117); ANION GAP 10 (8-16); BILIRUBIN,TOTAL 0.4 mg/dL (0.2-1.0); CALCIUM 7.5 mg/dL (8.5-10.1); CO2 29 mmol/L (21-32); CREATININE 0.8 mg/dL (0.55-1.02); GLUCOSE,RANDOM 158 mg/dL (74-106); MAGNESIUM 1.2 mg/dL (1.8-2.4); PHOSPHOROUS 4.6 mg/dL (2.5-4.9); SGOT/AST 18 U/L (15-37); SGPT/ALT 27 U/L (12-78); TOT PROT 5.8 g/dl (6.4-8.2)
--- NOTE | 2016-10-17 08:52 | PN ---
Progress Note, Physician Chief Complaint: ID Currently alert oriented NAD Afebrile - Current Medication List Current Medications: Active Medications Acetaminophen (Tylenol -) 650 mg PO Q4H PRN PRN Reason: FEVER OR PAIN Last Admin: 10/16/16 22:53 Dose: 650 mg Heparin Sodium (Porcine) (Heparin -) 5,000 unit SQ TID [facility] Last Admin: 10/17/16 06:33 Dose: 5,000 unit Sodium Chloride (Normal Saline -) 1,000 mls @ 125 mls/hr IV ASDIR [facility] Last Admin: 10/17/16 06:32 Dose: Not Given Pantoprazole Sodium (Protonix -) 40 mg PO DAILY [facility] Last Admin: 10/16/16 22:25 Dose: 40 mg - Objective Vital Signs: Vital Signs Temperature 98.1 F 10/17/16 06:00 Pulse Rate 68 10/17/16 06:00 Respiratory Rate 18 10/17/16 06:00 Blood Pressure 107/59 10/17/16 06:00 O2 Sat by Pulse Oximetry (%) 99 10/17/16 01:00 Constitutional: Yes: Well Nourished, No Distress Eyes: Yes: WNL, Conjunctiva Clear HENT: Yes: WNL, Atraumatic Neck: Yes: WNL, Supple, Lymphadenopathy, Other (tender left ant cervical node) Cardiovascular: Yes: Regular Rate and Rhythm, S1, S2. No: Murmur Respiratory: Yes: WNL, Regular, CTA Bilaterally, Tachypnea Gastrointestinal: Yes: WNL, Soft, Tenderness Edema: No Labs: CBC, BMP 10/17/16 06:30 10/17/16 06:30 INR, PTT INR 1.19 (0.82-1.09) H 10/17/16 06:30 Problem List - Problems (1) Abdominal pain Code(s): R10.9 - UNSPECIFIED ABDOMINAL PAIN (2) Altered mental status Code(s): R41.82 - ALTERED MENTAL STATUS, UNSPECIFIED Qualifiers: Altered mental status type: unspecified Qualified Code(s): R41.82 - Altered mental status, unspecified (3) Fever Code(s): R50.9 - FEVER, UNSPECIFIED Qualifiers: Fever type: unspecified Qualified Code(s): R50.9 - Fever, unspecified Assessment/Plan Microbiology Laboratory Tests 06/12/2510/16/16 10/16/16 16:00 16:29 16:29 WBC 20.7 H Hgb Hct Plt Count Random Glucose Lactic Acid Total Bilirubin AST ALT Urine Glucose (UA) 2+ H Urine Ketones 1+ H Urine Nitrite Negative CSF Color CSF WBC CSF RBC Benzodiazepines Screen Positive 10/16/16 10/16/16 10/17/16 18:20 18:30 06:30 WBC Hgb Hct Plt Count Random Glucose 158 H D Lactic Acid 3.2 H* Total Bilirubin 0.4 D AST 18 D ALT 27 D Urine Glucose (UA) Urine Ketones Urine Nitrite CSF Color Colorless CSF WBC 0 CSF RBC 1 Benzodiazepines Screen 10/17/16 06:30 WBC 15.0 H Hgb 11.4 D Hct 34.3 D Plt Count 276 Random Glucose Lactic Acid Total Bilirubin AST ALT Urine Glucose (UA) Urine Ketones Urine Nitrite CSF Color CSF WBC CSF RBC Benzodiazepines Screen Altered mental status ? sepsis related Abd pain with dilated small bowel loops CT Diabetes HPTN Alcoholism post detox Plan Doubt meningitis or [employer] infection Ceftriaxone metronidazole pending cultures ESR CRP GI Consult Lyndon JOHNSON
[2016-10-17] MEDS ORDERED: MAGNESIUM SULF 50% (8.12 MEQ/2 ML-1 GM VIAL) IVPB ONE ×3 (09:06→13:30)
[2016-10-17] MEDS ORDERED: POTASSIUM CHLORIDE TABS 20 MEQ TABLET.ER (FP) PO SCH (09:15)
[2016-10-17 09:18] LABS: ERYTHROCYTE SEDIMENTATION RATE 55 mm/hr (0-30)
[2016-10-17] MEDS ORDERED: ALBUTEROL SO4 6.7 GM HFA INHALER IH PRN (10:02)
[2016-10-17] MEDS: CEFTRIAXONE 50 ML IVPB SCH (10:34)
[2016-10-17] MEDS: METRONIDAZOLE 500 MG PREMIXED 100 ML IVPB SCH ×2 (10:35→17:37)
[2016-10-17 11:01] LABS: HIV 1 & 2 AB NEGATIVE; HIV 1 AGp24 NEGATIVE
[2016-10-17] MEDS: POTASSIUM CHLORIDE TABS 20 MEQ TABLET.ER (FP) PO SCH ×2 (11:51→17:37)
[2016-10-17] MEDS: PANTOPRAZOLE 40 MG TABLET (FP) PO SCH (11:51)
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
[2016-10-17] MEDS: INSULIN SLIDING SCALE (NOVOLOG) 1 VIAL SQ SCH ×3 (12:45→22:02)
[2016-10-17] MEDS: ENALAPRIL MALEATE 10 MG TABLET (FP) PO SCH ×2 (12:48→22:02)
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
--- NOTE | 2016-10-17 18:17 | CONS ---
DATE OF CONSULTATION: DATE OF DICTATION: 10/17/2016 INFECTIOUS DISEASE CONSULTATION HISTORY OF PRESENT ILLNESS: This is a 51-year-old -[place] female sent from the detox unit for evaluation of fever and altered mental status. I was actually asked to see her for meningitis, but having been admitted overnight and speaking to her this morning, it is apparent she does not have meningitis. She has a history of bipolar disorder, schizophrenia, diabetes, with diabetic neuropathy, rheumatoid arthritis and asthma, and had been at the detox unit for approximately 1 week detoxing from alcohol use with the addition of marijuana involved. She does not use intravenous drugs and has been HIV negative in the past. She was getting ready to be transferred to a rehabilitation facility when she apparently developed altered mental status with chills. Her temperature was noted to be 101, and she was sent to the hospital, where a lumbar puncture was done to rule out meningitis and found to be negative by cell count. She was given ceftriaxone and metronidazole, the latter because she was complaining of abdominal pain. A CT scan of the head showed volume loss but no acute intracranial pathology performed without contrast. An abdominal CT scan with IV contrast showed a nondescended stomach with thickening of the gastric antral wall for which further evaluation was recommended. Fluid filled, slightly dilated small bowel loops in the right mid abdomen possibly on the basis of ileus was mentioned but without gross evidence of small bowel obstruction notably air fluid levels. The temperature was elevated on admission, is now normal. She is alert and denies any localizing complaint, noting only that she does not know what happened to her last night, and has some mild abdominal discomfort with no bleeding per rectum or diarrhea. She has no urinary complaints. PAST MEDICAL HISTORY: Noted above. MEDICATION: Protonix, K-Dur. ALLERGIES: None known. SOCIAL HISTORY: States HIV negative. Lives in [place]. Taken care of by primary care doctor in [place]. Psychiatric history with bipolar disorder, heavy alcohol use, marijuana use, and smoking. FAMILY HISTORY: Reviewed, noncontributory. REVIEW OF SYSTEMS: Respiratory: No cough, shortness of breath, wheezing. Cardiac: No chest pain, palpitations, syncope, murmur. Gastrointestinal: Mild abdominal pain. No distention, nausea, vomiting, diarrhea. Genitourinary: No dysuria, hematuria, frequency. PHYSICAL EXAMINATION: General: She was an alert pleasant woman in no acute distress. Vital signs: Temperature 98.1, pulse 68, blood pressure 107/59, respirations 20. Neck: Supple. No adenopathy. Tender lymph node in the left anterior cervical area. Lungs: Clear to percussion and auscultation. Heart: S1, S2. Regular rhythm without murmur. HEENT: Oropharynx with erythema. Abdomen: Diffuse tenderness, no guarding or rebound. Positive bowel sounds. Not distended. Extremities: Without edema. LABORATORY: Blood cultures pending, thus far blood cultures no growth. The white count: 20.7, hemoglobin 13.9, platelets of 323, now white count 15,000, BUN 10, creatinine 0.8, liver enzymes within normal limits. Chest x-ray with no acute infiltrate seen. ASSESSMENT: A 51-year-old female status post detox for alcohol use, presents with altered mental status, fever without clearcut source. Major findings on physical examination include some throat erythema with tenderness and a left anterior cervical lymph node as well as diffuse abdominal discomfort on palpation with possible early small bowel obstruction seen on CAT scan in the form of an ileus. For right now, will await her final cultures. Her lactic acid was noted to be elevated, and she has a history of diabetes, but blood sugars appear controlled. Will get a throat culture, empiric therapy with ceftriaxone, metronidazole. Erythrocyte sedimentation rate, C-reactive protein, human immunodeficiency virus testing, hepatitis C testing, and await gastrointestinal consultation for evaluation of abdominal pain and abdominal tenderness. JULIEN SOLIS M.D. [id number]
[2016-10-17] MEDS: ACETAMINOPHEN 325 MG TABLET (FP) PO PRN (20:47)
[2016-10-17 21:51] LABS: URINE APPEARANCE CLEAR; URINE BILIRUBIN NEGATIVE (NEGATIVE); URINE COLOR STRAW; URINE GLUCOSE (UA) NEGATIVE (NEGATIVE); URINE KETONE NEGATIVE (NEGATIVE); URINE NITRITE NEGATIVE (NEGATIVE); URINE PROTEIN NEGATIVE (NEGATIVE); URINE UROBILINOGEN NEGATIVE E.U./dl (0.2-1.0)
[2016-10-17 21:53] LABS: URINE BLOOD 1+ (NEGATIVE); URINE LEUK ESTERASE TRACE (NEGATIVE)
[2016-10-17] MEDS: THIAMINE HCL 100 MG TABLET (FP) PO SCH (22:01)
[2016-10-17 22:06] LABS: URINE MUCUS RARE; URINE RBC 7 /hpf (0-3); URINE WBC 5 /hpf (3-5)
[2016-10-18] MEDS: METRONIDAZOLE 500 MG PREMIXED 100 ML IVPB SCH ×3 (02:39→17:31)
[2016-10-18] MEDS: HEPARIN NA (PORCINE) 5,000 UNITS/ML 1ML VIAL SQ SCH ×3 (06:22→21:40)
[2016-10-18] MEDS: INSULIN SLIDING SCALE (NOVOLOG) 1 VIAL SQ SCH ×4 (06:23→21:39)
[2016-10-18] MEDS: CEFTRIAXONE 50 ML IVPB SCH (09:17)
[2016-10-18] MEDS: PANTOPRAZOLE 40 MG TABLET (FP) PO SCH (09:17)
[2016-10-18] MEDS: ENALAPRIL MALEATE 10 MG TABLET (FP) PO SCH ×2 (09:17→21:09)
[2016-10-18 09:39] LABS: BASOPHIL 0.6 % (0-2.0); MCH 32.8 pg (25.7-33.7); MCHC 33.3 g/dl (32.0-36.0); MEAN CELL VOLUME 98.6 fl (80-96); MEAN PLT VOLUME 8.1 fl (7.5-11.1); NEUTROPHILS 74.6 % (42.8-82.8); PLATELET COUNT 271 K/MM3 (134-434); RDW 15.2 % (11.6-15.6); WHITE BLOOD COUNT 12.6 K/mm3 (4.0-10.0)
[2016-10-18 10:00] LABS: ALBUMIN 2.9 g/dl (3.4-5.0); ANION GAP 9 (8-16); CALCIUM 8.1 mg/dL (8.5-10.1); CO2 26 mmol/L (21-32); COCKROFT - GAULT 114.4355; CREATININE 0.7 mg/dL (0.55-1.02); GLUCOSE,RANDOM 164 mg/dL (74-106); SGOT/AST 25 U/L (15-37); SGPT/ALT 33 U/L (12-78)
[2016-10-18 10:02] LABS: ALK PHOS 64 U/L (45-117); BILIRUBIN,TOTAL 0.4 mg/dL (0.2-1.0); TOT PROT 6.1 g/dl (6.4-8.2)
[2016-10-18] MEDS: ACETAMINOPHEN 325 MG TABLET (FP) PO PRN (12:00)
--- NOTE | 2016-10-18 12:41 | PN ---
Progress Note (short form) - Note Progress Note: alert and conversant reports 3 weeks of diarrhea, nonbloody midepigastric discomfort no headaches Vital Signs Period Temp Pulse Resp BP Sys/Cody Pulse Ox Last 24 Hr 97.6 F-98.7 F 59-69 18-20 94-110/57-66 99-100 cor-rrr lungs clear abd soft,n+midepigastric discomfort to palpation ext no edema CBC, BMP 10/18/16 09:15 10/18/16 09:15 hiv negative Microbiology 10/16/16 16:29 Urine - Urine Clean Catch Urine Culture - Final NO GROWTH OBTAINED 10/17/16 21:00 Throat Group A Strep Rapid Antigen - Final 10/16/16 18:20 Cerebral Spinal Fluid - Lumbar Puncture Gram Stain - Final 10/16/16 18:20 Cerebral Spinal Fluid - Lumbar Puncture CSF Culture - Preliminary NO GROWTH OBTAINED AFTER 24 HOURS INCUBATION, REINCUBATED. 10/16/16 16:10 Blood - Peripheral Venous Blood Culture - Preliminary NO GROWTH OBTAINED AFTER 24 HOURS, INCUBATION TO CONTINUE FOR 4 DAYS. 10/16/16 16:00 Blood - Peripheral Venous Blood Culture - Preliminary NO GROWTH OBTAINED AFTER 24 HOURS, INCUBATION TO CONTINUE FOR 4 DAYS. a/p fever/change in mental status - resolved leukocytosis improved diarrhea- w/u in progress continue rocephin/flagyl for now
[2016-10-18] MEDS ORDERED: PT OWN MED DRAWER 7, Y5N ONE (15:31)
--- NOTE | 2016-10-18 15:40 | EKG ---
Test Reason : Blood Pressure : / mmHG Vent. Rate : 083 BPM Atrial Rate : 083 BPM P-R Int : 146 ms QRS Dur : 076 ms QT Int : 406 ms P-R-T Axes : 059 015 039 degrees QTc Int : 477 ms NORMAL SINUS RHYTHM WITH SINUS ARRHYTHMIA NORMAL ECG WHEN COMPARED WITH ECG OF 08-OCT-2016 14:37, T WAVE INVERSION NO LONGER EVIDENT IN INFERIOR LEADS T WAVE AMPLITUDE HAS INCREASED IN ANTEROLATERAL LEADS CLINICAL CORRELATION IS RECOMMENDED BASELINE ARTIFACT Confirmed by JUAN F JOHNSON, VIVEK ([id number]) on 10/18/2016 3:39:57 PM Referred By: Confirmed By:VIVEK ROGEL MD
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
[2016-10-18] MEDS ORDERED: SODIUM CHLORIDE 1,000 ML IV SCH (17:53)
[2016-10-18] MEDS: THIAMINE HCL 100 MG TABLET (FP) PO SCH (21:09)
[2016-10-18] MEDS: ACETAMINOPHEN/CAFFEINE/BUTALBITAL 1 TAB PO PRN (21:09)
[2016-10-19] MEDS: ACETAMINOPHEN/CAFFEINE/BUTALBITAL 1 TAB PO PRN (02:14)
[2016-10-19] MEDS: METRONIDAZOLE 500 MG PREMIXED 100 ML IVPB SCH ×2 (02:27→12:27)
[2016-10-19] MEDS: HEPARIN NA (PORCINE) 5,000 UNITS/ML 1ML VIAL SQ SCH ×3 (05:53→21:50)
[2016-10-19] MEDS: INSULIN SLIDING SCALE (NOVOLOG) 1 VIAL SQ SCH ×4 (06:13→21:50)
[2016-10-19 07:35] LABS: BASOPHIL 0.5 % (0-2.0); EOSINOPHIL 1.5 % (0-4.5); MCH 32.4 pg (25.7-33.7); MEAN CELL VOLUME 98.3 fl (80-96); MEAN PLT VOLUME 8.1 fl (7.5-11.1); NEUTROPHILS 74.6 % (42.8-82.8); PLATELET COUNT 309 K/MM3 (134-434); RDW 14.8 % (11.6-15.6); WHITE BLOOD COUNT 13.7 K/mm3 (4.0-10.0)
[2016-10-19 08:38] LABS: ALBUMIN 3.1 g/dl (3.4-5.0); ALK PHOS 71 U/L (45-117); ANION GAP 9 (8-16); BILIRUBIN,TOTAL 0.3 mg/dL (0.2-1.0); CALCIUM 8.4 mg/dL (8.5-10.1); CO2 24 mmol/L (21-32); COCKROFT - GAULT 114.4355; CREATININE 0.7 mg/dL (0.55-1.02); GLUCOSE,RANDOM 133 mg/dL (74-106); MAGNESIUM 1.9 mg/dL (1.8-2.4); SGOT/AST 25 U/L (15-37); SGPT/ALT 35 U/L (12-78); TOT PROT 6.4 g/dl (6.4-8.2)
[2016-10-19] MEDS: PANTOPRAZOLE SODIUM 100 ML IVPB SCH (09:48)
[2016-10-19] MEDS: ENALAPRIL MALEATE 10 MG TABLET (FP) PO SCH ×2 (09:48→21:50)
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
[2016-10-19] MEDS: CEFTRIAXONE 50 ML IVPB SCH (11:42)
[2016-10-19] MEDS: IBUPROFEN 600 MG TABLET (FP) PO PRN ×2 (13:33→20:09)
--- NOTE | 2016-10-19 13:43 | PN ---
Progress Note (short form) - Note Progress Note: called by dr. israel. Ms. Borden w/ some loose bms, improving however she explains that ms. borden complained of mid abdominal pain. no tenderness noted on my exam, she was guaiac negative as well. plan: ugis in am possible egd thursday ppi for now Problem List - Problems (1) Gastric wall thickening Code(s): K31.89 - OTHER DISEASES OF STOMACH AND DUODENUM (2) Leukocytosis Code(s): D72.829 - ELEVATED WHITE BLOOD CELL COUNT, UNSPECIFIED Qualifiers: Leukocytosis type: unspecified Qualified Code(s): D72.829 - Elevated white blood cell count, unspecified
[2016-10-19] MEDS: THIAMINE HCL 100 MG TABLET (FP) PO SCH (21:50)
[2016-10-20] MEDS: ACETAMINOPHEN 325 MG TABLET (FP) PO PRN (05:12)
[2016-10-20] MEDS: INSULIN SLIDING SCALE (NOVOLOG) 1 VIAL SQ SCH ×4 (07:00→22:25)
[2016-10-20] MEDS: HEPARIN NA (PORCINE) 5,000 UNITS/ML 1ML VIAL SQ SCH ×3 (07:00→22:22)
[2016-10-20 07:48] LABS: BASOPHIL 0.5 % (0-2.0); EOSINOPHIL 1.7 % (0-4.5); MCH 32.4 pg (25.7-33.7); MCHC 32.7 g/dl (32.0-36.0); MEAN CELL VOLUME 99.1 fl (80-96); MEAN PLT VOLUME 8.7 fl (7.5-11.1); NEUTROPHILS 75.4 % (42.8-82.8); PLATELET COUNT 311 K/MM3 (134-434); WHITE BLOOD COUNT 13.2 K/mm3 (4.0-10.0)
[2016-10-20] MEDS: PANTOPRAZOLE SODIUM 100 ML IVPB SCH (10:01)
[2016-10-20] MEDS: ENALAPRIL MALEATE 10 MG TABLET (FP) PO SCH ×2 (10:02→22:22)
[2016-10-20] MEDS: IBUPROFEN 600 MG TABLET (FP) PO PRN (13:21)
--- NOTE | 2016-10-20 16:46 | PN ---
GI Progress Note Subjective: No acute events Denies abdominal pain Diarrhea was improved however the gastrograffin from current study did give her loose BM's afterwards - Objective Vital Signs: Vital Signs Temperature 98.6 F 10/20/16 15:50 Pulse Rate 54 L 10/20/16 15:50 Respiratory Rate 18 10/20/16 15:50 Blood Pressure 143/75 10/20/16 15:50 O2 Sat by Pulse Oximetry (%) 98 10/20/16 09:00 Constitutional: Calm Cardiovascular: Yes: Regular Rate and Rhythm Gastrointestinal Inspection: No: Distention ...Auscultate: Yes: Normoactive Bowel Sounds ...Palpate: No: Tenderness Edema: No Neurological: Yes: Alert, Oriented Labs: CBC, BMP 10/20/16 06:00 10/19/16 06:10 INR, PTT INR 1.19 (0.82-1.09) H 10/17/16 06:30 - ....Imaging X-ray: Report Reviewed (UGIS: WNL. No thickened folds) Problem List - Problems (1) Gastric wall thickening Assessment/Plan: Not evident on UGIS We did discuss EGD for follow-up regarding her previous complaints of upper abdominal pain while an inpatient. We discussed potential risks of the procedure like but not limited to bleeding, perforation requiring surgery to repair, infection and sedation medication effects all of which could be potentially life threatening. While she is amenable to the procedure she preferred to wait as an outpatient to discuss having upper endoscopy performed as well as colonoscopy with Dr. Galvez her current undergraduate advisor Continue pantoprazole 20mg once daily for now Code(s): K31.89 - OTHER DISEASES OF STOMACH AND DUODENUM (2) Leukocytosis Code(s): D72.829 - ELEVATED WHITE BLOOD CELL COUNT, UNSPECIFIED Qualifiers: Leukocytosis type: unspecified Qualified Code(s): D72.829 - Elevated white blood cell count, unspecified
--- NOTE | 2016-10-20 16:57 | CON.PSY ---
Psychiatry Consult Chief Complaint: I dont know what happened, I was at [facility]. Symptoms: reports: Depressed Mood - Previous Psychiatric Treatment Outpatient: Less than 6 mos ago Inpatient: Within the last 12 months - Previous Substance Abuse Treatment Outpatient: Less than 6 mos ago Inpatient: Within the last 12 months - Reason for Previous Treatment Reason for Previous Treatment: Major Depression, Alcohol Abuse, Marijuana - Current Medications Current Medications: Active Medications Acetaminophen (Tylenol -) 650 mg PO Q4H PRN PRN Reason: FEVER OR PAIN Last Admin: 10/20/16 05:12 Dose: 650 mg Acetaminophen/Butalbital/Caffeine (Fioricet -) 1 tablet PO Q4H PRN PRN Reason: FEVER OR PAIN Last Admin: 10/19/16 02:14 Dose: 1 tablet Albuterol Sulfate (Ventolin Hfa Inhaler -) 2 puff IH Q4H PRN PRN Reason: 0 Enalapril Maleate (Vasotec -) 10 mg PO BID [facility] Last Admin: 10/20/16 10:02 Dose: 10 mg Heparin Sodium (Porcine) (Heparin -) 5,000 unit SQ TID [facility] Last Admin: 10/20/16 13:18 Dose: 5,000 unit Pantoprazole Sodium (Protonix 40mg Ivpb (Pre-Docked)) 100 mls @ 200 mls/hr IVPB DAILY [facility] Last Admin: 10/20/16 10:01 Dose: 200 mls/hr Ibuprofen (Motrin -) 600 mg PO Q6H PRN PRN Reason: FEVER Last Admin: 10/20/16 13:21 Dose: 600 mg Insulin Aspart (Novolog Vial Sliding Scale -) 1 vial SQ ACHS [facility] PRN Reason: Protocol Last Admin: 10/20/16 11:50 Dose: Not Given Nicotine (Nicoderm Patch -) 14 mg TD DAILY [facility] Thiamine HCl (Vitamin B1 -) 100 mg PO HS [facility] Last Admin: 10/19/16 21:50 Dose: 100 mg - Allergies Allergies: Allergies Allergy/AdvReac Type Severity Reaction Status Date / Time No Known Allergies Allergy Verified 10/16/16 15:52 - Current Living Status Usual Living Arrangement: Alone - Current Mental Status Evaluation Appearance: Well Groomed Attitude: Cooperative - Affect Affect: Full Range Appropriateness: Appropriate to Content - Mood Mood: Euthymic - Speech/Language Expressive: Coherent - Psychomotor Activity Psychomotor Activity: Normal - Thought Process Thought Process: Intact - Thought Content Hallucinations: Absent Delusions: Absent - Self Perception Self Perception: No Impairment - Cognition Attention: Alert Orientation: Time Memory, Immediate Recall: Intact Memory, Short Term: 2/3 Memory, Remote with Promptin/3 - Concentration Serial Sevens Intact: No Simple Calculations Intact: No - Abstraction Proverb Interpretation: Impaired Judgement: Intact - Insight Insight: Intact - Impulse Control Impulse Control: Good Control - Suicidal Ideation Suicidal Ideation: No - Homicidal Ideation Homicidal Ideation: No Assessment/Plan start Lexapro 20mg po od
[2016-10-20] MEDS: NICOTINE 14 MG/24 HOURS TOPICAL PATCH TD SCH (17:37)
[2016-10-20] MEDS: THIAMINE HCL 100 MG TABLET (FP) PO SCH (22:22)
[2016-10-20] MEDS ORDERED: INSULIN (NOVOLOG) ASPART 100 UNITS/ML 10ML VIAL ONE (22:24)
[2016-10-20] MEDS: ACETAMINOPHEN/CAFFEINE/BUTALBITAL 1 TAB PO PRN (22:25)
[2016-10-21 06:15] VITALS: TEMP 97.9
[2016-10-21] MEDS: HEPARIN NA (PORCINE) 5,000 UNITS/ML 1ML VIAL SQ SCH (06:15)
[2016-10-21] MEDS: INSULIN SLIDING SCALE (NOVOLOG) 1 VIAL SQ SCH (06:18)
[2016-10-21] MEDS: PANTOPRAZOLE SODIUM 100 ML IVPB SCH (09:09)
[2016-10-21] MEDS: ESCITALOPRAM OXALATE 20 MG TABLET (FP) PO SCH ×2 (09:09→10:01)
[2016-10-21] MEDS: ENALAPRIL MALEATE 10 MG TABLET (FP) PO SCH ×2 (09:09→10:01)
[2016-10-21] MEDS: NICOTINE 14 MG/24 HOURS TOPICAL PATCH TD SCH ×2 (09:09→10:01)
[2016-10-21] MEDS: IBUPROFEN 600 MG TABLET (FP) PO PRN (10:00)
[2016-10-21 13:17] VITALS: BP 167/89; PULSE 61
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
== END 2016-10-21 10:12 | disposition other institution (70) | DRG 720 ==
LOC: JER 15:31 → JERBED 18:53 → J8W 10-17 00:15
PROVIDERS: ADMIT Internal Medicine; ATTEND Nurse Practitioner Acute Care
PROC: 009U3ZZ Drainage of Spinal Canal, Percutaneous Approach (ICD-10-PCS; principal; 2016-10-16)
DX: A41.89 Other specified sepsis (principal); R65.20 Severe sepsis without septic shock; J45.909 Unspecified asthma, uncomplicated; K76.0 Fatty (change of) liver, not elsewhere classified; K70.30 Alcoholic cirrhosis of liver without ascites; F10.20 Alcohol dependence, uncomplicated; E78.00 Pure hypercholesterolemia, unspecified; K25.9 Gastric ulcer, unspecified as acute or chronic, without hemorrhage or perforation; N83.201 Unspecified ovarian cyst, right side; K21.9 Gastro-esophageal reflux disease without esophagitis; F31.9 Bipolar disorder, unspecified; F20.9 Schizophrenia, unspecified; E11.21 Type 2 diabetes mellitus with diabetic nephropathy; E11.65 Type 2 diabetes mellitus with hyperglycemia; F17.210 Nicotine dependence, cigarettes, uncomplicated; E87.6 Hypokalemia; F12.10 Cannabis abuse, uncomplicated; A08.8 Other specified intestinal infections; K59.09 Other constipation; K56.7 Ileus, unspecified; J02.9 Acute pharyngitis, unspecified; I16.0 Hypertensive urgency; E83.42 Hypomagnesemia; M10.9 Gout, unspecified; K31.89 Other diseases of stomach and duodenum; D72.829 Elevated white blood cell count, unspecified
CPT/HCPCS: 36415; 70450-TC; 71010-TC; 74020-TC; 74177-TC; 74247-TC; 80048; 80053; 80307; 81003; 81015; 82140; 82550; 82803; 82945; 83036; 83605; 83690; 83735; 84100; 84157; 84484; 85025; 85027; 85610; 85651; 85730; 86140; 86850; 86900; 86901; 87040; 87045; 87046; 87070; 87086; 87205; 87324; 87389; 87430; 87449; 89050; 93005; 93010; 93306-TC; 99285-25; J1644

== ENCOUNTER 2016-12-26 12:40 | Inpatient (IN) | payer OTHER ==
[2016-12-26] MEDS ORDERED: ONDANSETRON 4 MG/2 ML VIAL IVPB ONE (17:01)
[2016-12-26] MEDS ORDERED: SODIUM CHLORIDE 1,000 ML IV STA ×2 (17:01→18:47)
[2016-12-26] MEDS ORDERED: PANTOPRAZOLE SODIUM 40 MG in SODIUM CHLORIDE 100 ML IVPB ONE (17:01)
--- NOTE | 2016-12-26 17:04 | PDOC ---
History of Present Illness - General Chief Complaint: Revisit, Lab Variance Stated Complaint: LOW BC (PCP SENT) Time Seen by Provider: 12/26/16 16:55 - History of Present Illness Initial Comments: 12/26/16 22:49 51 year old female with a PMH of alcohol and marijuana abuse, asthma, NIDDM, h/ o gastric ulcer/GERD, chronic constipation, and depression presents to ER with 2 -3 days of nausea, vomiting, and diarrhea. Pt states that she was at her PMD yesterday and was found to have a WBC of 22. She received a call and was told to come to ER for further evaluation of her leukocytosis. Pt denies any fevers or chills. States that she has had multiple episodes of watery brown stool, as well as 3 episodes of nonbloody emesis. She endorses epigastric cramping but no other abdominal pain. Of note, pt was admitted to hospital last month for sepsis of unclear etiology. Pt had a negative CXR, CT, UA, and LP. Echo showed no vegetations. C diff negative. Pt today is alert and oriented, stating she feels otherwise well. Past History - Past Medical History Allergies/Adverse Reactions: Allergies Allergy/AdvReac Type Severity Reaction Status Date / Time No Known Allergies Allergy Verified 12/26/16 12:48 Home Medications: Ambulatory Orders Albuterol Sulfate Inhaler - [Ventolin HFA Inhaler -] 2 inh PO Q4H PRN 09/12/16 Enalapril Maleate [Vasotec -] 10 mg PO BID 09/12/16 Metformin HCl [Glucophage -] 1,000 mg PO BID 09/12/16 Sucralfate [Carafate] 1 gm PO BID 10/12/16 Thiamine HCl [B-1] 100 mg PO HS 10/16/16 Acetaminophen/Caffeine/Butalb [Fioricet -] 1 tab PO Q6H #10 tablet MDD 4 Escitalopram Oxalate [Lexapro -] 20 mg PO DAILY #30 tablet 10/21/16 Nicotine Patch [Nicoderm Patch -] 1 patch TD DAILY #30 patch 10/21/16 Pantoprazole Sodium [Protonix -] 20 mg PO DAILY #30 tablet.ec 10/21/16 Anemia: No Asthma: Yes Cancer: No Cardiac Disorders: No CVA: No COPD: No CHF: No Dementia: No Diabetes: Yes (NIDDM) GI Disorders: Yes (gastric ulcer, cirrhosis) Disorders: No HTN: Yes Hypercholesterolemia: Yes Kidney Stones: No Liver Disease: Yes (h/o fatty liver ) Psychiatric Problems: Yes (depression, drug abuse, etoh abuse) Suicide Attempt (Hx): Yes (pill overdose in 2010) Seizures: No Thyroid Disease: No - Surgical History Abdominal Surgery: Yes (rt ovarian cyst) Appendectomy: Yes Cardiac Surgery: No Cholecystectomy: No Lung Surgery: No Neurologic Surgery: No Orthopedic Surgery: No - Reproductive History PID: No - Immunization History Immunization Up to Date: Yes - Psycho/Social/Smoking Cessation Hx Anxiety: No Suicidal Ideation: No Smoking History: Current every day smoker Have you smoked in the past 12 months: Yes Number of Cigarettes Smoked Daily: 20 Cigars Per Day: 0 Information on smoking cessation initiated: No 'Breaking Loose' booklet given: 10/08/16 Hx Alcohol Use: No Drug/Substance Use Hx: No Substance Use Type: Alcohol, Heroin Hx Substance Use Treatment: Yes Review of Systems - Review of Systems Comments:: 12/26/16 22:53 "GENERAL/CONSTITUTIONAL: No fever or chills. No weakness. HEAD, EYES, EARS, NOSE AND THROAT: No change in vision. No ear pain or discharge. No sore throat. GASTROINTESTINAL: + nausea, vomiting, diarrhea. No constipation. GENITOURINARY: No dysuria, frequency, or change in urination. CARDIOVASCULAR: No chest pain or shortness of breath. RESPIRATORY: No cough, wheezing, or hemoptysis. MUSCULOSKELETAL: No joint or muscle swelling or pain. No neck or back pain. SKIN: No rash NEUROLOGIC: No headache, vertigo, loss of consciousness, or change in strength/ sensation. ENDOCRINE: No increased thirst. No abnormal weight change. HEMATOLOGIC/LYMPHATIC: no anemia, easy bleeding, or history of blood clots. ALLERGIC/IMMUNOLOGIC: No hives or skin allergy. " *Physical Exam - Vital Signs Last Vital Signs Temp Pulse Resp BP Pulse Ox 97.9 F 104 H 18 189/116 98 12/26/16 12:49 12/26/16 12:49 12/26/16 12:49 12/26/16 12:49 12/26/16 12:49 - Physical Exam Comments: 12/26/16 22:55 "GENERAL: Awake, alert, and fully oriented, in no acute distress HEAD: No signs of trauma EYES: PERRLA, EOMI, sclera anicteric. ENT: Auricles normal inspection, hearing grossly normal, nares patent, oropharynx clear without exudates. Moist mucosa NECK: Normal ROM, supple, no lymphadenopathy, JVD, or masses LUNGS: Breath sounds equal, clear to auscultation bilaterally. No wheezes, and no crackles HEART: Regular rate and rhythm, normal S1 and S2, no murmurs, rubs or gallops ABDOMEN: +Epigastric TTP, no rebound/guarding. Soft, hyperactive bowel sounds. No masses EXTREMITIES: Normal range of motion, no edema. No clubbing or cyanosis. No cords, erythema, or tenderness NEUROLOGICAL: Cranial nerves II through XII grossly intact. Normal speech, normal gait SKIN: Warm, Dry, normal turgor, no rashes or lesions noted. ED Treatment Course - LABORATORY CBC & Chemistry Diagram: 12/26/16 18:05 12/26/16 16:59 - RADIOLOGY Radiology Studies Ordered: Category Date Time Status CHEST PA & LAT [RAD] Stat Radiology 12/26/16 16:59 Ordered Medical Decision Making - Medical Decision Making 12/26/16 22:56 51 F with N/V/D, sent in for leukocytosis of 22. Vitals in ER stable, with no fevers. Pt slightly tachycardic and hypertensive, likely 2/2 vomiting while in ER. Will do full infectious work up given recent admission for sepsis. Likely viral gastroenteritis. Abdominal exam unconcerning for acute process. - Labs, UA, BCx/UCx - CXR - IVF, GI cocktail - Reassess - Recheck vitals *DC/Admit/Observation/Transfer Diagnosis at time of Disposition: Nausea and vomiting
[2016-12-26] MEDS ORDERED: ONDANSETRON *ODT* 4 MG TABLET ONE (17:33)
[2016-12-26 18:17] LABS: BASOPHIL 0.5 % (0-2.0); MCH 31.8 pg (25.7-33.7); MEAN CELL VOLUME 96.4 fl (80-96); MEAN PLT VOLUME 8.7 fl (7.5-11.1); NEUTROPHILS 84.5 % (42.8-82.8); PLATELET COUNT 224 K/MM3 (134-434); RDW 15.1 % (11.6-15.6); WHITE BLOOD COUNT 16.8 K/mm3 (4.0-10.0)
[2016-12-26 18:38] LABS: ALBUMIN 4.1 g/dl (3.4-5.0); ALK PHOS 103 U/L (45-117); ANION GAP 12 (8-16); BILIRUBIN,TOTAL 0.5 mg/dL (0.2-1.0); CALCIUM 9.8 mg/dL (8.5-10.1); CO2 29 mmol/L (21-32); CREATININE 0.6 mg/dL (0.55-1.02); GLUCOSE,RANDOM 157 mg/dL (74-106); SGPT/ALT 50 U/L (12-78); TOT PROT 8.6 g/dl (6.4-8.2)
[2016-12-26 18:40] LABS: SGOT/AST 39 U/L (15-37)
[2016-12-26] MEDS ORDERED: PANTOPRAZOLE SODIUM 100 ML IVPB ONE (18:43)
[2016-12-26 20:59] LABS: URINE APPEARANCE CLEAR; URINE BILIRUBIN NEGATIVE (NEGATIVE); URINE BLOOD 2+ (NEGATIVE); URINE COLOR STRAW; URINE GLUCOSE (UA) 1+ (NEGATIVE); URINE KETONE 1+ (NEGATIVE); URINE LEUK ESTERASE NEGATIVE (NEGATIVE); URINE NITRITE NEGATIVE (NEGATIVE); URINE PROTEIN 2+ (NEGATIVE); URINE UROBILINOGEN NEGATIVE mg/dL (0.2-1.0)
[2016-12-26 22:14] LABS: URINE MUCUS RARE; URINE RBC 13 /hpf (0-3); URINE WBC 3 /hpf (3-5)
[2016-12-26] MEDS ORDERED: chlordiazePOXIDE HCL 25 MG CAPSULE PO ONE (23:12)
--- NOTE | 2016-12-26 23:19 | PDOC ---
*Physical Exam - Vital Signs Last Vital Signs Temp Pulse Resp BP Pulse Ox 97.9 F 104 H 18 189/116 98 12/26/16 12:49 12/26/16 12:49 12/26/16 12:49 12/26/16 12:49 12/26/16 12:49 ED Treatment Course - LABORATORY CBC & Chemistry Diagram: 12/26/16 18:05 12/26/16 16:59 - ADDITIONAL ORDERS Additional order review: Laboratory Results 12/26/16 12/26/16 12/26/16 22:10 20:33 16:59 Sodium 133 L Potassium 3.7 Chloride 92 L D Carbon Dioxide 29 D Anion Gap 12 BUN 7 Creatinine 0.6 Creat Clearance w eGFR > 60 Random Glucose 157 H Calcium 9.8 Total Bilirubin 0.5 D AST 39 H D ALT 50 D Alkaline Phosphatase 103 D Total Protein 8.6 H D Albumin 4.1 D Lipase 66 L Serum , Qual Negative Urine Color Straw Urine Appearance Clear Urine pH 7.0 Ur Specific [place] 1.020 Urine Protein 2+ H Urine Glucose (UA) 1+ H Urine Ketones 1+ H Urine Blood 2+ H Urine Nitrite Negative Urine Bilirubin Negative Urine Urobilinogen Negative Ur Leukocyte Esterase Negative Urine RBC 13 Urine WBC 3 Ur Epithelial Cells Rare Urine Mucus Rare 12/26/16 18:05 RBC 4.74 D MCV 96.4 H MCHC 33.0 RDW 15.1 MPV 8.7 Neutrophils % 84.5 H Lymphocytes % 10.5 D Monocytes % 4.5 Eosinophils % 0.0 D Basophils % 0.5 - Medications Given in the ED: ED Medications Discontinued Medications Generic Name Dose Route Start Last Admin Trade Name Francisco PRN Reason Stop Dose Admin Pantoprazole Sodium 40 mg/ 100 mls @ 200 mls/hr 12/26/16 17:01 12/26/16 18:40 Sodium Chloride IVPB 12/26/16 17:30 200 mls/hr ONCE ONE Administration Sodium Chloride 1,000 mls @ 1,000 mls/hr 12/26/16 17:01 12/26/16 17:30 Normal Saline - IV 12/26/16 18:00 1,000 mls/hr ASDIR STA Administration Sodium Chloride 1,000 mls @ 1,000 mls/hr 12/26/16 18:47 12/26/16 20:33 Normal Saline - IV 12/26/16 19:46 1,000 mls/hr ASDIR STA Administration Ondansetron HCl 4 mg 12/26/16 17:01 12/26/16 17:30 Zofran Injection IVPB 12/26/16 17:02 4 mg ONCE ONE Administration Medical Decision Making - Medical Decision Making 12/26/16 23:18 Received signout on patient. SHe is still tachycardic, and her abd is obese. Pt appears to be in alcohol withdrawal; I asked her if she is an alcoholic and she tells me yes. Last drink was yesterday as she has been unable to tolerate PO all day today and she has been vomiting. Pt will be admitted for alcohol withdrawal. Pt still has ketonuria, so we will hydrate and admit to hospitalist team for alcohol withdrawal *DC/Admit/Observation/Transfer Diagnosis at time of Disposition: Nausea & vomiting, Alcohol withdrawal - Discharge Dispostion Condition at time of disposition: Guarded Admit: Yes - Referrals Referrals: STAFF,NOT ON [Primary Care Provider] - - Patient Instructions - Post Discharge Activity
[2016-12-26] MEDS ORDERED: chlordiazePOXIDE HCL 25 MG CAPSULE ONE (23:37)
[2016-12-27] MEDS ORDERED: IBUPROFEN 600 MG TABLET (FP) PO ONE (01:53)
[2016-12-27] MEDS ORDERED: ACETAMINOPHEN 325 MG TABLET (FP) PO PRN (02:13)
[2016-12-27] MEDS ORDERED: ALBUTEROL SO4 0.083% IH SOL 2.5 MG/3 ML VIAL.NEB. NEB PRN (02:13)
[2016-12-27] MEDS ORDERED: ONDANSETRON 4 MG/2 ML VIAL IVPB PRN (02:13)
[2016-12-27] MEDS ORDERED: SODIUM CHLORIDE 1,000 ML IV SCH (02:15)
--- NOTE | 2016-12-27 02:23 | HP ---
CHIEF COMPLAINT: nausea and vomiting. PCP: HISTORY OF PRESENT ILLNESS: 51 yo F with significant PMHx of alcohol and marijuana abuse, asthma, NIDDM, h/ o gastric ulcer/GERD, chronic constipation, and depression presents to ER with 2 -3 days of nausea, vomiting, and diarrhea.She describes intermittent 8/10 non radiating dull aching epigastric. Aggravated by eating and no alleviating factors. Pt states that she was at her PCP yesterday and was found to have a WBC of 22. She received a call and was told to come to ER for further evaluation of her leukocytosis. Pt denies any fevers, chills or sick contacts. . States that she has had multiple episodes of watery brown stool, as well as 3 episodes of nonbloody emesis. Denies CP,WOODY, SOB,palpitations. ER course was notable for: (1)WBC of 16.8 (2)UA shows ketones. (3)CXR showed no acute pathology. Recent Travel:denies PAST MEDICAL HISTORY:alcohol and marijuana abuse, asthma, NIDDM, h/o gastric ulcer/GERD, chronic constipation, and depression PAST SURGICAL HISTORY: Social History: Smokin pack yr Alcohol: Drugs: Family History: Allergies No Known Allergies Allergy (Verified 12/26/16 12:48) HOME MEDICATIONS: Home Medications Medication Instructions Recorded Albuterol Sulfate Inhaler - 2 inh PO Q4H PRN 09/12/16 [Ventolin HFA Inhaler -] Enalapril Maleate [Vasotec -] 10 mg PO BID 09/12/16 Metformin HCl [Glucophage -] 1,000 mg PO BID 09/12/16 Sucralfate [Carafate] 1 gm PO BID 10/12/16 Thiamine HCl [B-1] 100 mg PO HS 10/16/16 Acetaminophen/Caffeine/Butalb 1 tab PO Q6H #10 tablet MDD 4 10/21/16 [Fioricet -] Escitalopram Oxalate [Lexapro -] 20 mg PO DAILY #30 tablet 10/21/16 Nicotine Patch [Nicoderm Patch -] 1 patch TD DAILY #30 patch 10/21/16 Pantoprazole Sodium [Protonix -] 20 mg PO DAILY #30 tablet.ec 10/21/16 REVIEW OF SYSTEMS CONSTITUTIONAL: Absent: fever, chills, diaphoresis, generalized weakness, malaise, loss of appetite, weight change HEENT: Absent: rhinorrhea, nasal congestion, throat pain, throat swelling, difficulty swallowing, mouth swelling, ear pain, eye pain, visual changes CARDIOVASCULAR: Absent: chest pain, syncope, palpitations, irregular heart rate, lightheadedness , peripheral edema RESPIRATORY: Absent: cough, shortness of breath, dyspnea with exertion, orthopnea, wheezing, stridor, hemoptysis GASTROINTESTINAL:abdominal pain,nausea, vomiting, diarrhea Absent: , abdominal distension, , constipation, melena, hematochezia GENITOURINARY: Absent: dysuria, frequency, urgency, hesitancy, hematuria, flank pain, genital pain MUSCULOSKELETAL: Absent: myalgia, arthralgia, joint swelling, back pain, neck pain SKIN: Absent: rash, itching, pallor HEMATOLOGIC/IMMUNOLOGIC: Absent: easy bleeding, easy bruising, lymphadenopathy, frequent infections ENDOCRINE: Absent: unexplained weight gain, unexplained weight loss, heat intolerance, cold intolerance NEUROLOGIC: Absent: headache, focal weakness or paresthesias, dizziness, unsteady gait, seizure, mental status changes, bladder or bowel incontinence PSYCHIATRIC: Absent: anxiety, depression, suicidal or homicidal ideation, hallucinations. Laboratory Results - last 24 hr 12/26/16 12/26/16 12/26/16 16:59 18:05 20:33 WBC 16.8 H RBC 4.74 D Hgb 15.1 D Hct 45.7 H D MCV 96.4 H MCH 31.8 MCHC 33.0 RDW 15.1 Plt Count 224 D MPV 8.7 Neutrophils % 84.5 H Lymphocytes % 10.5 D Monocytes % 4.5 Eosinophils % 0.0 D Basophils % 0.5 Sodium 133 L Potassium 3.7 Chloride 92 L D Carbon Dioxide 29 D Anion Gap 12 BUN 7 Creatinine 0.6 Creat Clearance w eGFR > 60 Random Glucose 157 H Calcium 9.8 Total Bilirubin 0.5 D AST 39 H D ALT 50 D Alkaline Phosphatase 103 D Total Protein 8.6 H D Albumin 4.1 D Lipase 66 L Serum , Qual Urine Color Straw Urine Appearance Clear Urine pH 7.0 Ur Specific [place] 1.020 Urine Protein 2+ H Urine Glucose (UA) 1+ H Urine Ketones 1+ H Urine Blood 2+ H Urine Nitrite Negative Urine Bilirubin Negative Urine Urobilinogen Negative Ur Leukocyte Esterase Negative Urine RBC 13 Urine WBC 3 Ur Epithelial Cells Rare Urine Mucus Rare 12/26/16 22:10 WBC RBC Hgb Hct MCV MCH MCHC RDW Plt Count MPV Neutrophils % Lymphocytes % Monocytes % Eosinophils % Basophils % Sodium Potassium Chloride Carbon Dioxide Anion Gap BUN Creatinine Creat Clearance w eGFR Random Glucose Calcium Total Bilirubin AST ALT Alkaline Phosphatase Total Protein Albumin Lipase Serum , Qual Negative Urine Color Urine Appearance Urine pH Ur Specific [place] Urine Protein Urine Glucose (UA) Urine Ketones Urine Blood Urine Nitrite Urine Bilirubin Urine Urobilinogen Ur Leukocyte Esterase Urine RBC Urine WBC Ur Epithelial Cells Urine Mucus PHYSICAL EXAMINATION GENERAL: AAOx2 , mild distress. HEAD:NC/AT. EYES: PERRLA,EOMI, sclera anicteric, conjunctiva clear. No lid lag. EARS, NOSE, THROAT: Ears normal, nares patent, oropharynx clear without exudates. Moist mucous membranes. NECK: supple, no jvd LUNGS: CTAB No wheezes, and no crackles. No accessory muscle use. HEART: RRR, normal S1 and S2 no m/g/r ABDOMEN: Soft, epigastric tenderness. , not distended, normoactive bowel sounds , no guarding, no rebound, no masses. No hepatomegaly or splenomegaly. MUSCULOSKELETAL: Normal range of motion at all joints. No bony deformities or tenderness. No CVA tenderness. UPPER EXTREMITIES: 2+ pulses, warm, well-perfused. No cyanosis. No clubbing. No peripheral edema. LOWER EXTREMITIES: 2+ pulses, warm, well-perfused. No calf tenderness. No peripheral edema. NEUROLOGICAL: Cranial nerves II-XII intact. Normal speech. PSYCHIATRIC: Cooperative. Good eye contact. Appropriate mood and affect. SKIN: Warm, dry, normal turgor, no rashes or lesions noted, normal capillary refill. ASSESSMENT/PLAN: 51 yo F with significant PMHx of alcohol and marijuana abuse, asthma, NIDDM, h/ o gastric ulcer/GERD, chronic constipation, and depression placed on observation for intractable vomiting and acute alcohol withdrawal. Problem List - Problem (1) Abdominal pain Assessment/Plan: * Most likely gastritis vs. PUD * Pepcid IV * Zofran for nausea * will continue to monitor with neuro checks q4 to assess for symptoms of withdrawal. (2) Alcohol withdrawal Assessment/Plan: * Librium 50 mg PO Q6prn * thiamine and folate supplementation * IVF with NS at 125ml/hr (3) Intractable vomiting with nausea Assessment/Plan: * Zofran and pepcid. Visit type - Emergency Visit Emergency Visit: Yes ED Registration Date: 12/27/16 Care time: The patient presented to the Emergency Department on the above date and was hospitalized for further evaluation of their emergent condition. - New Patient This patient is new to me today: Yes Date on this admission: 12/27/16 - Critical Care Critical Care patient: No
[2016-12-27 03:16] VITALS: BMI 25.7
--- NOTE | 2016-12-27 05:32 | PN ---
"Teaching Attending Note Name of Resident: Jose Jeffers ATTENDING PHYSICIAN STATEMENT I saw and evaluated the patient. I reviewed the resident's note and discussed the case with the resident. I agree with the resident's findings and plan as documented. SUBJECTIVE: 51 yo female admitted with SIRS/Sepsis of unclear etiology. Recent hospitalizations in 09/2016 and 10/2016 were unable to find etiology of SIRS. OBJECTIVE: - Vital Signs Temp: 98.5F BP: 110-120s/60-80s HR: 70s RR: 20 spO2: 96% on RA - Physical Examination General: Alert, NAD HEENT: Normocephalic, Atraumatic, No oropharyngeal lesions Neck: No JVD CV: RRR, S1 and S2 Pulm: CTA anteriorly Abd: Generalized, mildly TTP, nondistended, BS+ Ext: Symmetrically appearing Neuro: CN grossly intact, no motor or sensory deficit noted - Imaging CXR negative and c/w prior studies CT A/P on prior admission suggested possible thickening of duodenal wall ; Upper GI series was unremarkable Echocardiogram 10/2016 reviewed - Labs BUN/Cr: 7/0.6 Na: 133, K: 3.7, Glu 157 Neutrophilic leukocytosis 16.8 H/H 15.1/45.7 w/ macrocytosis LFTs unremarkable aside from mild elevation AST 39 ; Lipase 66 UA: 2+ Proteinuria and Blood ; 1+ Glu and Ket ; 13 RBCs per hpf and 2 WBC per hpf ( Hematuria present on every UA since 07/2016 ) ESR/CRP 10/2015: 55/1 | Negative RPR, GC/C, HIV | LP w/ elevated protein 108 | Serum osmolality apparenly low | A1c: 8.6% ASSESSMENT: SIRS vs. Sepsis w/ unclear etiology - Autoimmune vs. Malignancy vs. Toxicity Persistent Leukocytosis w/ Neutrophilia Microscopic Hematuria Chronic Hyponatremia - Hypo-osmolar on prior admission c/w SIADH Poorly controlled DM-II complicated by retinopathy, peripheral neuropathy PUD ? Asthma Major Depressive Disorder ? Schizophrenia ( Per chart review ) Polysubstance Abuse ( EtOH, THC, Cocaine and Heroin previously ) Tobacco Abuse PLAN: Admit to general medical floor for infectious etiology r/o Labs to order: peripheral smear, SPEP/UPEP, ESR, CRP, serum osmolality, repeat UA w/ micro, urine electrolytes, Alb:creat ratio, BLL ( Blood Lead Level ), reticulocyte indices, B12/Folate, Ferritin, cerruloplasmin, TSH, serum uric acid level Consider consulting Nephrology given proteinuria and microscopic UA findings Fluid restriction unless concern for hemodynamic compromise Repeat CBC w/ differential, CMP, Phos, mg Consider Hem/Onc evaluation given negative GI w/u to this point Further recs/evaluation pending above labs CIWA protocol given h/o chronic EtOH DISPOSITION: Anticipate discharge in <48h pending results of above investigations and consulting physician recommendations."
[2016-12-27] MEDS ORDERED: chlordiazePOXIDE HCL 25 MG CAPSULE PO SCH (06:00)
[2016-12-27] MEDS ORDERED: INSULIN (NOVOLOG) ASPART 100 UNITS/ML 10ML VIAL ONE ×3 (06:15→21:26)
[2016-12-27] MEDS: INSULIN SLIDING SCALE (NOVOLOG) 1 VIAL SQ SCH ×4 (06:16→21:29)
[2016-12-27 08:15] LABS: BASOPHIL 0.4 % (0-2.0); EOSINOPHIL 0.3 % (0-4.5); MCH 32.2 pg (25.7-33.7); MEAN CELL VOLUME 97.8 fl (80-96); MEAN PLT VOLUME 8.9 fl (7.5-11.1); NEUTROPHILS 68.4 % (42.8-82.8); PLATELET COUNT 231 K/MM3 (134-434); RDW 14.8 % (11.6-15.6); WHITE BLOOD COUNT 17.4 K/mm3 (4.0-10.0)
[2016-12-27 08:34] LABS: ALBUMIN 3.5 g/dl (3.4-5.0); ANION GAP 11 (8-16); CALCIUM 8.7 mg/dL (8.5-10.1); CO2 33 mmol/L (21-32); CREATININE 0.8 mg/dL (0.55-1.02); GLUCOSE,RANDOM 124 mg/dL (74-106); SGOT/AST 16 U/L (15-37); SGPT/ALT 36 U/L (12-78)
[2016-12-27 08:40] LABS: ALK PHOS 85 U/L (45-117); AMYLASE 33 U/L (25-115); BILIRUBIN,TOTAL 0.7 mg/dL (0.2-1.0); TOT PROT 7.2 g/dl (6.4-8.2)
[2016-12-27 09:24] LABS: URIC ACID 6.9 mg/dL (2.6-7.2)
[2016-12-27] MEDS ORDERED: PT OWN MED DRAWER 7, Y5N ONE ×3 (09:28→11:19)
[2016-12-27] MEDS ORDERED: PANTOPRAZOLE SODIUM 40 MG VIAL ONE (09:28)
[2016-12-27] MEDS ORDERED: ESCITALOPRAM OXALATE 10 MG TABLET (FP) ONE (09:28)
[2016-12-27] MEDS ORDERED: SODIUM CHLORIDE 100 ML IVPB ONE (09:28)
[2016-12-27 09:32] LABS: FERRITIN 94.611 ng/ml (6.9-282.5); THYROID STIMULATING HORMONE 0.42 uIU/ml (0.358-3.74)
[2016-12-27] MEDS: NICOTINE 14 MG/24 HOURS TOPICAL PATCH TD SCH (09:44)
[2016-12-27] MEDS: SUCRALFATE 1 GM/10 ML UNIT DOSE CUPS PO SCH ×2 (09:44→21:29)
[2016-12-27] MEDS: ESCITALOPRAM OXALATE 20 MG TABLET (FP) PO SCH (09:44)
[2016-12-27] MEDS: ENALAPRIL MALEATE 10 MG TABLET (FP) PO SCH ×2 (09:46→21:29)
[2016-12-27] MEDS ORDERED: MULTIVIT INJ. ADULT COMBO WITH VIT K 1 COMBO 10 ML VIAL IV SCH (10:00)
[2016-12-27] MEDS ORDERED: PANTOPRAZOLE SODIUM 40 MG in SODIUM CHLORIDE 100 ML IVPB SCH (10:00)
[2016-12-27] MEDS ORDERED: THIAMINE HCL 200 MG/2 ML VIAL IVPB SCH (10:00)
[2016-12-27 10:03] LABS: C-REACTIVE PROTEIN 0.4 MG/DL (0.00-0.3)
--- NOTE | 2016-12-27 10:10 | PN ---
Physical Exam: SUBJECTIVE: Patient seen and examined Patient is feeling better, with no acute distress. No fever or chills, no abdominal pain, states that she only drinks 3 beer per day and does some weeds, and she smokes cigarettes that does not want to quit. OBJECTIVE: Vital Signs Temperature 98.0 F 12/27/16 08:58 Pulse Rate 77 12/27/16 08:58 Respiratory Rate 20 12/27/16 08:58 Blood Pressure 127/85 12/27/16 08:58 O2 Sat by Pulse Oximetry (%) 96 12/27/16 02:28 GENERAL: The patient is awake, alert, and fully oriented, in no acute distress. HEAD: Normal with no signs of trauma. EYES: PERRL, extraocular movements intact, sclera anicteric, conjunctiva clear. ENT: Ears normal, oropharynx clear without exudates, moist mucous membranes. NECK: Trachea midline, full range of motion, supple. LUNGS: Breath sounds equal, clear to auscultation bilaterally, no wheezes, no crackles, no accessory muscle use. HEART: Regular rate and rhythm, S1, S2 without murmur, rub or gallop. ABDOMEN: Soft, nontender, nondistended, normoactive bowel sounds, no guarding, no rebound, no hepatosplenomegaly, no masses. EXTREMITIES: 2+ pulses, warm, well-perfused, no edema. NEUROLOGICAL: Cranial nerves II through XII grossly intact. Normal speech, gait not observed. PSYCH: Normal mood, normal affect. SKIN: Warm, dry, normal turgor, no rashes or lesions noted CBCD WBC 17.4 K/mm3 (4.0-10.0) H 12/27/16 05:40 RBC 4.27 M/mm3 (3.60-5.2) 12/27/16 05:40 Hgb 13.8 GM/dL (10.7-15.3) 12/27/16 05:40 Hct 41.7 % (32.4-45.2) 12/27/16 05:40 MCV 97.8 fl (80-96) H 12/27/16 05:40 MCHC 33.0 g/dl (32.0-36.0) 12/27/16 05:40 RDW 14.8 % (11.6-15.6) 12/27/16 05:40 Plt Count 231 K/MM3 (134-434) 12/27/16 05:40 MPV 8.9 fl (7.5-11.1) 12/27/16 05:40 CMP Sodium 135 mmol/L (136-145) L 12/27/16 05:40 Potassium 3.3 mmol/L (3.5-5.1) L 12/27/16 05:40 Chloride 91 mmol/L (98-107) L 12/27/16 05:40 Carbon Dioxide 33 mmol/L (21-32) H 12/27/16 05:40 Anion Gap 11 (8-16) 12/27/16 05:40 BUN 11 mg/dL (7-18) D 12/27/16 05:40 Creatinine 0.8 mg/dL (0.55-1.02) D 12/27/16 05:40 Creat Clearance w eGFR > 60 (>60) 12/27/16 05:40 Random Glucose 124 mg/dL (74-106) H D 12/27/16 05:40 Calcium 8.7 mg/dL (8.5-10.1) 12/27/16 05:40 Total Bilirubin 0.7 mg/dL (0.2-1.0) D 12/27/16 05:40 AST 16 U/L (15-37) D 12/27/16 05:40 ALT 36 U/L (12-78) D 12/27/16 05:40 Alkaline Phosphatase 85 U/L (45-117) 12/27/16 05:40 Total Protein 7.2 g/dl (6.4-8.2) 12/27/16 05:40 Albumin 3.5 g/dl (3.4-5.0) 12/27/16 05:40 Active Medications Generic Name Dose Route Start Last Admin Trade Name Freq PRN Reason Stop Dose Admin Acetaminophen 650 mg 12/27/16 02:13 Tylenol - PO Q4H PRN discontinued FEVER OR PAIN Albuterol Sulfate 1 amp 12/27/16 02:13 Ventolin 0.083% Nebulizer Soln - NEB Q4H PRN SHORT OF BREATH/WHEEZING Chlordiazepoxide HCl 50 mg 12/27/16 06:00 12/27/16 06:14 Librium - PO 50 mg discontinued and was placed on detox protocol Q6HPO OSITO Administration Enalapril Maleate 10 mg 12/27/16 10:00 12/27/16 09:46 Vasotec - PO 10 mg BID OSITO Administration Escitalopram Oxalate 20 mg 12/27/16 10:00 12/27/16 09:44 Lexapro - PO 20 mg DAILY OSITO Administration Pantoprazole Sodium 40 mg/ 100 mls @ 200 mls/hr 12/27/16 10:00 12/27/16 09:45 Sodium Chloride IVPB 200 mls/hr changed to po BID OSITO Administration Insulin Aspart 1 vial 12/27/16 07:00 12/27/16 06:16 Novolog Vial Sliding Scale - SQ 2 units ACHS OSITO Administration Protocol Multivitamins/Minerals 10 ml 12/27/16 10:00 Infuvite Adult - IV changed to po DAILY [facility] Nicotine 14 mg 12/27/16 10:00 12/27/16 09:44 Nicoderm Patch - TD 14 mg DAILY OSITO Administration Ondansetron HCl 4 mg 12/27/16 02:13 Zofran Injection IVPB discontinued Q6H PRN NAUSEA Sucralfate 1 gm 12/27/16 10:00 12/27/16 09:44 Carafate Oral Suspension - PO 1 gm BID OSITO Administration Thiamine HCl 200 mg 12/27/16 10:00 Vitamin B1 Injection - IVPB dsicontinued DAILY [facility] Thiamine HCl 100 mg 12/27/16 22:00 Vitamin B1 - PO HS [facility] Urine Test Results Urine Color Straw 12/26/16 20:33 Urine Appearance Clear 12/26/16 20:33 Urine pH 7.0 (5.0-8.0) 12/26/16 20:33 Ur Specific [place] 1.020 (1.005-1.025) 12/26/16 20:33 Urine Protein 2+ (NEGATIVE) H 12/26/16 20:33 Urine Glucose (UA) 1+ (NEGATIVE) H 12/26/16 20:33 Urine Ketones 1+ (NEGATIVE) H 12/26/16 20:33 Urine Blood 2+ (NEGATIVE) H 12/26/16 20:33 Urine Nitrite Negative (NEGATIVE) 12/26/16 20:33 Urine Bilirubin Negative (NEGATIVE) 12/26/16 20:33 Ur Leukocyte Esterase Negative (NEGATIVE) 12/26/16 20:33 Urine RBC 13 /hpf (0-3) 12/26/16 20:33 Urine WBC 3 /hpf (3-5) 12/26/16 20:33 Ur Epithelial Cells Rare /hpf (FEW) 12/26/16 20:33 Urine Mucus Rare 12/26/16 20:33 Laboratory Tests 12/26/16 12/27/16 12/27/16 18:05 05:40 05:40 WBC 16.8 H 17.4 H MCV 96.4 H 97.8 H Neutrophils % 84.5 H 68.4 Phosphorus 3.0 D Magnesium 2.0 Lead [facility] 12/27/16 12/27/16 07:46 07:46 WBC MCV Neutrophils % Phosphorus Magnesium Lead Pending [facility] Pending ASSESSMENT/PLAN: Patient is a 51 yo F with significant PMHx of alcohol and marijuana abuse, asthma, NIDDM, h/o gastric ulcer/GERD, chronic constipation, and depression presents to ER with 2-3 days of nausea, vomiting, and diarrhea. ALso states that she had chicken that afterward started to vomit and felt nauseas. # Acute alcohol withdrawel on Librium protocol , dr rick cid for consult CIWA protocol given h/o chronic EtOH # Acute Leukocytosis with no clear etiology but has no fever, r/o Infectious process, ID consult . Also patient stated that she was admitted in October with the same symptoms and leukocytosis but stated that she has no pain now vs last admission. # Microscopic Hematuria # Acute Hyponatremia -improved now # Acute hypokalemia will give her a kdur x 3 doses # T2DM Uncontrolled complicated by retinopathy, peripheral neuropathy #Hx of Major Depressive Disorder/ Schizophrenia ( Per chart review )/ Polysubstance Abuse ( EtOH, THC, Cocaine and Heroin previously ) Tobacco Abuse Labs to order: peripheral smear, SPEP/UPEP, ESR, CRP, serum osmolality, repeat UA w/ micro, urine electrolytes, Alb:creat ratio, BLL ( Blood Lead Level ), reticulocyte indices, B12/Folate, Ferritin, cerruloplasmin, TSH, serum uric acid level. Visit type - Emergency Visit Emergency Visit: Yes ED Registration Date: 12/27/16 Care time: The patient presented to the Emergency Department on the above date and was hospitalized for further evaluation of their emergent condition. - New Patient This patient is new to me today: Yes Date on this admission: 12/27/16 - Critical Care Critical Care patient: No
[2016-12-27] MEDS ORDERED: POTASSIUM CHLORIDE TABS 20 MEQ TABLET.ER (FP) PO SCH (10:15)
[2016-12-27] MEDS ORDERED: chlordiazePOXIDE HCL 25 MG CAPSULE PO PRN (10:24)
[2016-12-27] MEDS: PANTOPRAZOLE 20 MG TABLET (FP) PO SCH ×2 (11:15→21:29)
[2016-12-27] MEDS: chlordiazePOXIDE HCL 25 MG CAPSULE PO SCH ×4 (11:29→23:00)
--- NOTE | 2016-12-27 15:31 | PN ---
Progress Note (short form) - Note Progress Note: ID consult dictated imp/reccd 51 year old female admitted with chronic diarrhea- nonbloody- watery 2/times a day for last two weeks developed vomiting on that stopped this morning no fevers no abdominal pain no sick contacts was hospitalized in October and told to f/u with GI for upper endoscopy she went to [place] for the month of November and just returned December 14- all her symptoms began after her return to [place] she is homeless and is staying with a friend she drinks 3 beers a day (the big cans) leukocytosis of unclear etiology continue w/u of diarrhea send blood cultures observe off antibiotics for now send stool ova and parasites (cdiff is negative) check esr cbc with manual diff Problem List - Problems (1) Leukocytosis Code(s): D72.829 - ELEVATED WHITE BLOOD CELL COUNT, UNSPECIFIED Qualifiers: Leukocytosis type: unspecified Qualified Code(s): D72.829 - Elevated white blood cell count, unspecified (2) Diarrhea Code(s): R19.7 - DIARRHEA, UNSPECIFIED
[2016-12-27] MEDS ORDERED: POTASSIUM CHLORIDE TABS 20 MEQ TABLET.ER (FP) PO ONE (16:51)
[2016-12-27] MEDS ORDERED: GABAPENTIN 100 MG CAPSULE (FP) PO ONE (16:54)
--- NOTE | 2016-12-27 18:38 | EKG ---
Test Reason : Blood Pressure : / mmHG Vent. Rate : 077 BPM Atrial Rate : 077 BPM P-R Int : 150 ms QRS Dur : 082 ms QT Int : 456 ms P-R-T Axes : -05 -04 004 degrees QTc Int : 516 ms NORMAL SINUS RHYTHM PROLONGED QT ABNORMAL ECG WHEN COMPARED WITH ECG OF 16-OCT-2016 15:48, NONSPECIFIC T WAVE ABNORMALITY NOW EVIDENT IN INFERIOR LEADS T WAVE AMPLITUDE HAS DECREASED IN ANTERIOR LEADS Confirmed by JOSI LOUIS MD ([id number]) on 12/27/2016 6:38:30 PM Referred By: Confirmed By:JOSI LOUIS MD
[2016-12-27] MEDS: POTASSIUM CHLORIDE TABS 20 MEQ TABLET.ER (FP) PO SCH (21:29)
[2016-12-27] MEDS ORDERED: THIAMINE HCL 100 MG TABLET (FP) PO SCH (22:00)
[2016-12-28] MEDS: chlordiazePOXIDE HCL 25 MG CAPSULE PO SCH (05:13)
[2016-12-28] MEDS ORDERED: INSULIN (NOVOLOG) ASPART 100 UNITS/ML 10ML VIAL ONE (06:11)
[2016-12-28] MEDS: INSULIN SLIDING SCALE (NOVOLOG) 1 VIAL SQ SCH (06:12)
[2016-12-28 08:57] LABS: BASOPHIL 0.5 % (0-2.0); EOSINOPHIL 1.1 % (0-4.5); MCH 32.8 pg (25.7-33.7); MCHC 33.5 g/dl (32.0-36.0); MEAN CELL VOLUME 97.7 fl (80-96); MEAN PLT VOLUME 8.7 fl (7.5-11.1); NEUTROPHILS 56.5 % (42.8-82.8); PLATELET COUNT 225 K/MM3 (134-434); RDW 14.4 % (11.6-15.6); WHITE BLOOD COUNT 12.2 K/mm3 (4.0-10.0)
[2016-12-28] MEDS ORDERED: ESCITALOPRAM OXALATE 10 MG TABLET (FP) ONE (09:23)
[2016-12-28] MEDS ORDERED: PT OWN MED DRAWER 7, Y5N ONE (09:23)
[2016-12-28] MEDS: SUCRALFATE 1 GM/10 ML UNIT DOSE CUPS PO SCH (09:58)
[2016-12-28] MEDS ORDERED: MULTIVITAMINS (DAILY MVI) TABLET (FP) PO SCH (10:00)
[2016-12-28] MEDS ORDERED: FOLIC ACID 1 MG TABLET (FP) PO SCH (10:00)
[2016-12-28] MEDS: POTASSIUM CHLORIDE TABS 20 MEQ TABLET.ER (FP) PO SCH (10:00)
[2016-12-28] MEDS: ESCITALOPRAM OXALATE 20 MG TABLET (FP) PO SCH (10:01)
[2016-12-28] MEDS: PANTOPRAZOLE 20 MG TABLET (FP) PO SCH (10:05)
[2016-12-28] MEDS: NICOTINE 14 MG/24 HOURS TOPICAL PATCH TD SCH (10:06)
[2016-12-28 10:12] LABS: ERYTHROCYTE SEDIMENTATION RATE 24 mm/hr (0-30)
[2016-12-28] MEDS: ENALAPRIL MALEATE 10 MG TABLET (FP) PO SCH (10:14)
--- NOTE | 2016-12-28 10:20 | PN ---
Progress Note (short form) - Note Progress Note: no diarrhea no vomiting eating Vital Signs Period Temp Pulse Resp BP Sys/Cody Pulse Ox Last 24 Hr 98.0 F-98.3 F 64-82 18-20 105-117/55-68 94-99 CBC, BMP 12/28/16 07:35 12/27/16 05:40 51 year old female admitted with chronic diarrhea- nonbloody- watery 2/times a day for last two weeks developed vomiting on that stopped this morning no fevers no abdominal pain no sick contacts was hospitalized in October and told to f/u with GI for upper endoscopy she went to [place] for the month of November and just returned December 14- all her symptoms began after her return to [place] she is homeless and is staying with a friend she drinks 3 beers a day (the big cans) leukocytosis resolving off antiibotics, may have been due to diarrhea diarrhea resolved could f/u with gi as outpt will sign off please call back if needed Problem List - Problems (1) Leukocytosis Code(s): D72.829 - ELEVATED WHITE BLOOD CELL COUNT, UNSPECIFIED Qualifiers: Leukocytosis type: unspecified Qualified Code(s): D72.829 - Elevated white blood cell count, unspecified (2) Diarrhea Code(s): R19.7 - DIARRHEA, UNSPECIFIED
[2016-12-28] MEDS ORDERED: chlordiazePOXIDE HCL 25 MG CAPSULE PO SCH (11:00)
--- NOTE | 2016-12-28 11:44 | DS ---
Physical Exam: SUBJECTIVE: Patient seen and examined by me at bedside. Patient reports she wants to leave and that she has no pain. She states that she can take her medication home and that she does not want to go to rehab or detox. Patient denies fever, chills, shortness of breath, chest pain, palpitations, nausea, vomiting. OBJECTIVE: Vital Signs Period Temp Pulse Resp BP Sys/Cody Pulse Ox Last 24 Hr 98.0 F-98.3 F 64-82 18-20 105-117/55-68 94-99 PHYSICAL EXAM GENERAL: The patient is awake, alert, and fully oriented, in no acute distress. LUNGS: Breath sounds equal, clear to auscultation bilaterally, no wheezes, no crackles, no accessory muscle use. HEART: Regular rate and rhythm, S1, S2 without murmur, rub or gallop. ABDOMEN: Soft, nontender, nondistended, normoactive bowel sounds, no guarding, no rebound. EXTREMITIES: No edema. LABS Laboratory Results - last 24 hr 12/27/16 12/27/16 12/27/16 11:24 17:10 21:24 WBC RBC Hgb Hct MCV MCH MCHC RDW Plt Count MPV Neutrophils % Lymphocytes % Monocytes % Eosinophils % Basophils % ESR POC Glucometer 198 133 201 12/28/16 12/28/16 06:10 07:35 WBC 12.2 H RBC 4.08 Hgb 13.4 Hct 39.8 MCV 97.7 H MCH 32.8 MCHC 33.5 RDW 14.4 Plt Count 225 MPV 8.7 Neutrophils % 56.5 Lymphocytes % 32.4 D Monocytes % 9.5 Eosinophils % 1.1 D Basophils % 0.5 ESR 24 POC Glucometer 186 HOSPITAL COURSE: Date of Admission:12/27/16 Date of Discharge: 12/28/16 PATIENT ADAMENTLY REFUSES HOSPITALIZATION AND WANTS TO LEAVE AGAINST MEDICAL ADVICE. I EXPLAINED TO PATIENT THAT AGAINST MEDICAL ADVICE IS DANGEROUS AND CAN LEAD TO WORSENING OF CONDITION, PERMANENT DISABILITY, AND EVEN . I USED LAY TERMINOLOGY. I ANSWERED ALL QUESTIONS. ITS CLEAR TO ME THAT SHE UNDERSTANDS THE RISKS AND BENEFITS OF CONTINUOUS HOSPITAL STAY AND LEAVING AGAINST MEDICAL ADVISE. SHE HAS THE CAPACITY TO MAKE HER OWN DECISIONS. SHE AGREES TO FOLLOW UP WITH HIS PRIMARY MEDICAL DOCTOR TOMORROW AND RETURN TO THE EMERGENCY DEPARTMENT IF SYMPTOMS WORSEN. Minutes to complete discharge: 35 <Nicole Schneider - Last Filed: 12/28/16 11:37> Physical Exam: SUBJECTIVE: Patient seen and examined Patient signed against medical advice, feeling better, no further nausea or vomiting. <Sander Tao - Last Filed: 12/28/16 11:51> Discharge Summary Reason For Visit: ALCOHOL DEPENDENCE WITH UNCOMPLICATED WITHDRAWAL Current Active Problems Abdominal pain (Acute) Abscess of ovary (Acute) Alcohol withdrawal (Acute) Constipation (Acute) Diarrhea (Acute) Fecal impaction (Acute) History of cocaine abuse (Acute) History of suicide attempt (Acute) Hyperuricemia (Acute) Hyponatremia (Acute) Intractable vomiting with nausea (Acute) Nausea & vomiting (Acute) Recovering alcoholic (Acute) Retinopathy (Acute) Retinopathy due to secondary diabetes (Acute) Status post appendectomy (Acute) Stricture of anus (Acute) - Home Medications Comprehensive Discharge Medication List: Ambulatory Orders Albuterol Sulfate Inhaler - [Ventolin HFA Inhaler -] 2 inh PO Q4H PRN 09/12/16 Enalapril Maleate [Vasotec -] 10 mg PO BID 09/12/16 Metformin HCl [Glucophage -] 1,000 mg PO BID 09/12/16 Sucralfate [Carafate] 1 gm PO BID 10/12/16 Thiamine HCl [B-1] 100 mg PO HS 10/16/16 Acetaminophen/Caffeine/Butalb [Fioricet -] 1 tab PO Q6H #10 tablet MDD 4 Escitalopram Oxalate [Lexapro -] 20 mg PO DAILY #30 tablet 10/21/16 Nicotine Patch [Nicoderm Patch -] 1 patch TD DAILY #30 patch 10/21/16 Pantoprazole Sodium [Protonix -] 20 mg PO DAILY #30 tablet.ec 10/21/16 <Nicole Schneider - Last Filed: 12/28/16 11:37> Current Active Problems Abdominal pain (Acute) Abscess of ovary (Acute) Alcohol withdrawal (Acute) Constipation (Acute) Diarrhea (Acute) Fecal impaction (Acute) History of cocaine abuse (Acute) History of suicide attempt (Acute) Hyperuricemia (Acute) Hyponatremia (Acute) Intractable vomiting with nausea (Acute) Nausea & vomiting (Acute) Recovering alcoholic (Acute) Retinopathy (Acute) Retinopathy due to secondary diabetes (Acute) Status post appendectomy (Acute) Stricture of anus (Acute) - Home Medications Comprehensive Discharge Medication List: Ambulatory Orders Albuterol Sulfate Inhaler - [Ventolin HFA Inhaler -] 2 inh PO Q4H PRN 09/12/16 Enalapril Maleate [Vasotec -] 10 mg PO BID 09/12/16 Metformin HCl [Glucophage -] 1,000 mg PO BID 09/12/16 Sucralfate [Carafate] 1 gm PO BID 10/12/16 Thiamine HCl [B-1] 100 mg PO HS 10/16/16 Acetaminophen/Caffeine/Butalb [Fioricet -] 1 tab PO Q6H #10 tablet MDD 4 Escitalopram Oxalate [Lexapro -] 20 mg PO DAILY #30 tablet 10/21/16 Nicotine Patch [Nicoderm Patch -] 1 patch TD DAILY #30 patch 10/21/16 Pantoprazole Sodium [Protonix -] 20 mg PO DAILY #30 tablet.ec 10/21/16 <Sander Tao - Last Filed: 12/28/16 11:51> Condition: Stable - Instructions Referrals: STAFF,NOT ON [Primary Care Provider] - Disposition: AGAINST MEDICAL ADVICE This patient is new to me today: No Emergency Visit: Yes ED Registration Date: 12/27/16 Care time: The patient presented to the Emergency Department on the above date and was hospitalized for further evaluation of their emergent condition. Critical Care patient: No - Discharge Referral Referred to [facility] Med P.C[facility] No <Sander Tao - Dain Filed: 12/28/16 11:51>
[2016-12-28 12:59] VITALS: BP 105/72; PULSE 70; TEMP 97.2
--- NOTE | 2016-12-28 18:11 | CONS ---
DATE OF CONSULTATION: 12/27/2016 REQUESTED BY: Hospitalist service. This is a 51-year-old woman with a past medical history of alcohol use, asthma, diabetes for the last 10 years, gastric ulcer, and GERD. She has had multiple recent admissions to [facility] and she was here in September for 1 day, and admitted again in October for 5 days, and now again in December. She is now re-admitted with diarrhea, 2 episodes a day, nonbloody, watery, for the last 2 weeks. She was recently in [place] for the month of November. She returned December 14 to [place]. She is homeless. She is staying with a friend. She has no history of any fevers. She notes that with her prior admission to [facility], she had had abdominal pain, and she has no abdominal pain at this time. She did have, along with this chronic diarrhea for 2 weeks, on Thursday she developed vomiting Thursday evening, which persisted on Thursday and and she vomited on admission but has not vomited since. This morning, she was able to eat a regular meal without difficulty. Her past medical history is notable for a history of hypertension, hyperlipidemia, and asthma. She has a history of depression, gout, diabetes over 10 years, diabetic retinopathy. She had a surgical history notable for appendectomy, oophorectomy for her right ovary as a child. She has no known drug allergies. Her medications as an outpatient include albuterol, enalapril, Glucophage, Carafate, , Fioricet, Lexapro, NicoDerm patch, and Protonix. Her family history is noncontributory. SOCIAL HISTORY: She was recently in [place]. She just returned December 14. She is an active smoker. She drinks beer, 3 beers a day, the large cans. She is homeless and staying with a friend. REVIEW OF SYSTEMS: She has not lost any weight since the last time she was in the hospital. She is HIV negative. She denies a history of any hepatitis. Her vomiting has resolved and she has been able to eat today. PHYSICAL EXAMINATION: General: She is awake and alert. She is resting comfortably. Vital Signs: Temperature is 98.1. She has had no fever since admission. Pulse is 64. Blood pressure 106/55. Respiratory rate 20. She is saturating 96%. HEENT: She is normocephalic. Her eyes are anicteric. She has no thrush. Neck: Supple. Lungs: Clear to auscultation. Heart: Regular rate and rhythm. Abdomen: Soft, nontender. Extremities: Without edema. White count is 17.4, hemoglobin is 13.8, platelets 231. INR was not done. BUN 11, creatinine 0.8. LFTs are normal. Her CRP is 0.4. Urinalysis is negative for leukocyte esterase. Her HIV test done in October was negative. Blood cultures and urine cultures are pending. Stool C. difficile was sent and is negative. Other stool culture is pending. Chest x-ray is unremarkable. In summary, this is a 51-year-old woman with leukocytosis and some diarrhea, unclear source of the white count. She has no fever. Would agree with the cultures as ordered. Would check a sedimentation rate as well. Stool cultures are pending. I would follow up on those. If the diarrhea persists, we could send ova and parasites. Would send a CBC with a manual differential tomorrow to look at the morphology of her white cells. She does not appear to have an infectious process. At this current time so would hold off on any antibiotic treatment. Further recommendations to follow based on results of her lab work. BRYNN HOLM M.D. JUAN [id number]
[2016-12-29] MEDS ORDERED: chlordiazePOXIDE 5 MG CAPSULE PO SCH (11:00)
[2016-12-30 00:06] LABS: A/G RATIO 0.9 (0.7-1.7); ALBUMIN 3.3 g/dL (2.9-4.4); GLOBULIN, TOTAL 3.6 g/dL (2.2-3.9); M-SPIKE Not Observed g/dL (Not Observed); TOTAL PROTEIN 6.9 g/dL (6.0-8.5)
== END 2016-12-28 11:59 | disposition left against medical advice (07) | DRG 249 ==
LOC: JER 12:40 → JERBED 12-27 00:55 → UNDOADMIN 12-27 00:55 → JERBED 12-27 01:51 → J6S 12-27 02:53 → OBSVTOIN 12-27 11:13
PROVIDERS: ADMIT Internal Medicine; ATTEND Internal Medicine
PROC: HZ2ZZZZ Detoxification Services for Substance Abuse Treatment (ICD-10-PCS; principal; 2016-12-26)
DX: R19.7 Diarrhea, unspecified (principal); R11.2 Nausea with vomiting, unspecified; J45.909 Unspecified asthma, uncomplicated; K21.9 Gastro-esophageal reflux disease without esophagitis; K25.9 Gastric ulcer, unspecified as acute or chronic, without hemorrhage or perforation; K59.09 Other constipation; F32.9 Major depressive disorder, single episode, unspecified; F10.230 Alcohol dependence with withdrawal, uncomplicated; Y90.0 Blood alcohol level of less than 20 mg/100 ml; D72.828 Other elevated white blood cell count; F12.10 Cannabis abuse, uncomplicated; N83.291 Other ovarian cyst, right side; K70.30 Alcoholic cirrhosis of liver without ascites; F17.210 Nicotine dependence, cigarettes, uncomplicated; R00.0 Tachycardia, unspecified; E87.1 Hypo-osmolality and hyponatremia; R31.9 Hematuria, unspecified; E11.319 Type 2 diabetes mellitus with unspecified diabetic retinopathy without macular edema; E11.65 Type 2 diabetes mellitus with hyperglycemia; E11.42 Type 2 diabetes mellitus with diabetic polyneuropathy; E87.6 Hypokalemia; F20.89 Other schizophrenia; F19.10 Other psychoactive substance abuse, uncomplicated; A08.8 Other specified intestinal infections; Z59.0 Homelessness
CPT/HCPCS: 36415; 71020-TC; 80053; 81003; 81015; 82150; 82570; 82607; 82728; 82746; 83655; 83690; 83735; 83930; 84100; 84155; 84156; 84165; 84166; 84443; 84550; 84703; 85025; 85044; 85651; 86140; 87040; 87045; 87046; 87086; 87177; 87186; 87209; 87324; 87449; 93005; 93010; 99285-25; G0378

== ENCOUNTER 2017-10-29 14:25 | Inpatient (IN) | payer OTHER ==
[2017-10-29 15:39] VITALS: BMI 25.7
--- NOTE | 2017-10-29 16:11 | HP ---
CIWA Score - CIWA Score Nausea/Vomitin Muscle Tremors: 2 Anxiety: 1-Mildly Anxious Agitation: 1-Slight > Activity Paroxysmal Sweats: 2 Orientation: 0-Oriented Tacttile Disturbances: 2-Mild Itch/Numbness/Burn Auditory Disturbances: 0-None Visual Disturbances: 0-None Headache: 2-Mild CIWA-Ar Total Score: 12 Admission [facility] Chief Complaint: ETOH WITHDRAWAL SYMPTOMS. Allergies/Adverse Reactions: Allergies Allergy/AdvReac Type Severity Reaction Status Date / Time No Known Allergies Allergy Verified 10/29/17 14:57 History of Present Illness: PATIENT PRESENTS FOR ETOH WITHDRAWAL SYMPTOMS AND MARIJUANA DEPENDENCE. PATIENT LAST DETOX AT [facility] WAS IN 12/2016. PATIENT STARTED DRINKING ETOH AT AGE 7. DRINKS UP TO 1 PINT OF VODKA AND 72 OUNCES OF BEER DAILY. DENIES HISTORY OF SEIZURES FROM ETOH USE/WITHDRAWAL. PATIENT ALSO STARTED SMOKING MARIJUANA AT AGE 7. SMOKES 1 BLUNT EVERY OTHER DAY. LAST DRINK THIS MORNING AND LAST MARIJUANA USE 3 DAYS AGO. PMH INCLUDES DM, ASTHMA, HTN, HLD AND DEPRESSION. NON-COMPLAINT WITH ALL MEDS. DENIES SI/HI. ATTEMPTED SUICIDE 1995 BY OVERDOSING ON PILLS. Exam Limitations: No Limitations - Ebola screening Have you traveled outside of the country in the last 21 days: No Have you had contact with anyone from an Ebola affected area: No Have you been sick,other than usual withdrawal symptoms: No Do you have a fever: No - Review of Systems Constitutional: Chills, Night Sweats, Changes in sleep EENT: reports: No Symptoms Reported Respiratory: reports: Cough Cardiac: reports: No Symptoms Reported GI: reports: Diarrhea, Nausea, Poor Fluid Intake, Abdominal cramping : reports: No Symptoms Reported Musculoskeletal: reports: Joint Pain, Muscle Pain Integumentary: reports: Sweating Neuro: reports: Headache, Numbness, Tingling, Tremors Endocrine: reports: No Symptoms Reported Hematology: reports: No Symptoms Reported Psychiatric: reports: Orientated x3, Anxious, Depressed Patient History - Patient Medical History Hx Anemia: No Hx Asthma: Yes Hx Chronic Obstructive Pulmonary Disease (COPD): No Hx Cancer: No Hx Cardiac Disorders: No Hx Congestive Heart Failure: No Hx Hypertension: Yes Hx Hypercholesterolemia: Yes Hx Pacemaker: No HX Cerebrovascular Accident: No Hx Seizures: No Hx Dementia: No Hx Diabetes: Yes (NIDDM) Hx Gastrointestinal Disorders: Yes (Acid Reflux) Hx Liver Disease: Yes (h/o fatty liver ) Hx Genitourinary Disorders: No Hx Sexually Transmitted Disorders: No Hx Renal Disease (ESRD): No Hx Thyroid Disease: No Hx Human Immunodeficiency Virus (HIV): No Hx Hepatitis C: No Hx Depression: Yes Hx Suicide Attempt: Yes (Pill OD 1995) Hx Bipolar Disorder: Yes Hx Schizophrenia: No - Patient Surgical History Past Surgical History: Yes Hx Neurologic Surgery: No Hx Cataract Extraction: No Hx Cardiac Surgery: No Hx Lung Surgery: No Hx Breast Surgery: No Hx Breast Biopsy: No Hx Abdominal Surgery: Yes (rt ovarian cyst) Hx Appendectomy: Yes (age 8) Hx Cholecystectomy: No Hx Genitourinary Surgery: No Hx Section: No Hx Orthopedic Surgery: No Hx Hysterectomy: No Anesthesia Reaction: No - PPD History Previous Implant?: Yes Documented Results: Positive w/o proof Results: CXR (-) 12/26/16 PPD to be Administered?: No - Reproductive History Last Menstrual Period: 09/16/09 Patient : No - Smoking Cessation Smoking history: Current every day smoker Have you smoked in the past 12 months: Yes Aproximately how many cigarettes per day: 10 Cigars Per Day: 0 Hx Chewing Tobacco Use: No Initiated information on smoking cessation: Yes 'Breaking Loose' booklet given: 10/29/17 - Substance & Tx. History Hx Alcohol Use: Yes Hx Substance Use: Yes Substance Use Type: Alcohol, Marijuana Hx Substance Use Treatment: Yes - Substances Abused Alcohol Route: Oral Frequency: Daily Amount used: 1 pint- Vodka/3 24 oz beer Age of first use: 7 Date of Last Use: 10/29/17 Marijuana Route: Smoking Frequency: 3-6 times per week Amount used: $5 Age of first use: 7 Date of Last Use: 10/20/17 Family Disease History - Family Disease History Family Disease History: Heart Disease: Mother ( age 71 unclear cause), Other : Father ( of heroin abuse age 40), Brother (1: does not know med hx), Sister (1: dies not know med hx), Daughter (2, healthy) Admission Physical Exam [facility] - Vital Signs Vital Signs: Vital Signs - 24 hr 10/29/17 15:08 Temperature 97.6 F Pulse Rate 93 H Respiratory 20 Rate Blood Pressure 120/73 - Physical General Appearance: Yes: No Apparent Distress, Appropriately Dressed, Alcohol on Breath, Sweating, Anxious HEENTM: Yes: EOMI, Hearing grossly Normal, Normocephalic, Normal Voice, MAXIME, Pharynx Normal Respiratory: Yes: Chest Non-Tender, Lungs Clear, Normal Breath Sounds, No Respiratory Distress, No Accessory Muscle Use Neck: Yes: No masses,lesions,Nodules, Supple Breast: Yes: Breast Exam Deferred Cardiology: Yes: Regular Rhythm, Regular Rate, S1, S2 Abdominal: Yes: Normal Bowel Sounds, Non Tender, Soft Genitourinary: Yes: Within Normal Limits Back: Yes: Normal Inspection, Muscle Spasm Musculoskeletal: Yes: full range of Motion, Joint swelling (RIGHT ANKLE MILD SWELLING. NO REDNESS. +PEDAL PULSE.), Muscle Pain Extremities: Yes: Normal Inspection, Normal Range of Motion, Non-Tender, Tremors , Swelling Neurological: Yes: applicator sprayer II-XII NML intact, Fully Oriented, Alert, Numbness, Depressed Affect Integumentary: Yes: Normal Color, Warm, Moist Lymphatic: Yes: Within Normal Limits - Diagnostic (1) Alcohol dependence with uncomplicated withdrawal Current Visit: Yes Status: Acute (2) GERD (gastroesophageal reflux disease) Current Visit: Yes Status: Chronic Qualifiers: Esophagitis presence: without esophagitis Qualified Code(s): K21.9 - Gastro -esophageal reflux disease without esophagitis (3) Asthma Current Visit: Yes Status: Chronic Qualifiers: Asthma severity: mild Asthma complication type: uncomplicated (4) Cannabis dependence Current Visit: Yes Status: Chronic (5) Depression Current Visit: Yes Status: Chronic Qualifiers: Depression Type: unspecified Qualified Code(s): F32.9 - Major depressive disorder, single episode, unspecified (6) Diabetes mellitus Current Visit: Yes Status: Chronic Qualifiers: Diabetes mellitus type: type 2 Diabetes mellitus fpc insulin use: without director of respiratory therapy use Diabetes mellitus complication status: without complication Qualified Code(s): E11.9 - Type 2 diabetes mellitus without complications (7) Hypertension Current Visit: Yes Status: Chronic Qualifiers: Hypertension type: essential hypertension Qualified Code(s): I10 - Essential (primary) hypertension (8) Nicotine dependence Current Visit: Yes Status: Chronic Qualifiers: Nicotine product type: cigarettes Substance use status: uncomplicated Qualified Code(s): F17.210 - Nicotine dependence, cigarettes, uncomplicated Cleared for Admission [facility] - Detox or Rehab [facility] Level of Care: Medically Managed Detox Regimen/Protocol: Librium [facility] Breath Alcohol Content Breath Alcohol Content: 0.023 Urine Pregancy Test - Result Urine Test Results: Negative- NO Line Present Urine Drug Screen - Results Drug Screen Negative: No Urine Drug Screen Results: THC-Marijuana
[2017-10-29] MEDS ORDERED: MAGNESIUM HYDROX 2400MG/30ML ORAL SUSPENSION 30 ML CUP PO PRN (16:20)
[2017-10-29] MEDS ORDERED: MAGNESIUM CITRATE 300 ML BOTTLE PO PRN (16:20)
[2017-10-29] MEDS ORDERED: NICOTINE POLACRILEX 2 MG GUM BC PRN (16:20)
[2017-10-29] MEDS ORDERED: MAG HYDROX/AL HYDROX/SIMETH 30 ML UNIT-DOSE CUP PO PRN (16:20)
[2017-10-29] MEDS ORDERED: guaiFENesin/D-METHORPHAN HB 10 ML UNIT-DOSE CUPS PO PRN (16:20)
[2017-10-29] MEDS ORDERED: hydrOXYzine PAMOATE 50 MG CAPSULE (FP) PO PRN (16:20)
[2017-10-29] MEDS ORDERED: LOPERAMIDE HCL 2 MG CAPSULE PO PRN (16:20)
[2017-10-29] MEDS ORDERED: P-EPHED 60MG/TRIPROLIDI 2.5MG TABLET PO PRN (16:20)
[2017-10-29] MEDS ORDERED: MENTHOL/PHENOL 1 EACH UD MM PRN (16:20)
[2017-10-29] MEDS ORDERED: ACETAMINOPHEN 325 MG TABLET (FP) PO PRN (16:20)
[2017-10-29] MEDS ORDERED: ALBUTEROL SO4 18 GM HFA INHALER IH PRN (16:21)
[2017-10-29] MEDS ORDERED: chlordiazePOXIDE HCL 25 MG CAPSULE PO PRN (16:22)
[2017-10-29] MEDS ORDERED: chlordiazePOXIDE HCL 25 MG CAPSULE PO ONE (18:15)
[2017-10-29] MEDS ORDERED: INSULIN (NOVOLOG) ASPART 100 UNITS/ML 10ML VIAL SQ ONE (18:15)
[2017-10-29] MEDS: GABAPENTIN 100 MG CAPSULE (FP) PO SCH ×2 (19:18→22:40)
[2017-10-29] MEDS: metFORMIN HCL 500 MG TABLET (FP) PO SCH (19:18)
[2017-10-29] MEDS ORDERED: INSULIN (NOVOLOG) ASPART 100 UNITS/ML 10ML VIAL ONE (19:32)
[2017-10-29] MEDS: INSULIN SLIDING SCALE (NOVOLOG) 1 VIAL SQ SCH ×2 (19:40→22:40)
[2017-10-29] MEDS ORDERED: MELATONIN 5 MG TABLETS PO PRN (22:00)
[2017-10-29] MEDS: THIAMINE HCL 100 MG TABLET (FP) PO SCH (22:33)
[2017-10-29] MEDS: chlordiazePOXIDE HCL 25 MG CAPSULE PO SCH (22:39)
[2017-10-29] MEDS: ENALAPRIL MALEATE 10 MG TABLET (FP) PO SCH (22:40)
[2017-10-30 02:22] LABS: URINE APPEARANCE CLOUDY; URINE BILIRUBIN NEGATIVE (<2.0 mg/dL); URINE COLOR AMBER; URINE GLUCOSE (UA) 3+ (NEGATIVE); URINE KETONE NEGATIVE (NEGATIVE); URINE LEUK ESTERASE TRACE (NEGATIVE); URINE NITRITE NEGATIVE (NEGATIVE); URINE UROBILINOGEN 4.0 E.U/dl mg/dL (0.2-1.0)
[2017-10-30 02:24] LABS: URINE PROTEIN 2+ (NEGATIVE)
[2017-10-30 02:29] LABS: CALCIUM OXALATE CRYSTALS FEW /hpf (NONE SEEN); EPI CELLS MANY /HPF (FEW); URINE BACTERIA FEW /hpf (NONE SEEN); URINE HYALINE CAST 62 /lpf; URINE MUCUS RARE
[2017-10-30] MEDS: chlordiazePOXIDE HCL 25 MG CAPSULE PO SCH ×5 (05:54→22:13)
[2017-10-30] MEDS: GABAPENTIN 100 MG CAPSULE (FP) PO SCH ×3 (05:54→22:08)
[2017-10-30] MEDS: metFORMIN HCL 500 MG TABLET (FP) PO SCH (06:50)
[2017-10-30] MEDS ORDERED: INSULIN (NOVOLOG) ASPART 100 UNITS/ML 10ML VIAL ONE ×3 (07:01→22:07)
[2017-10-30] MEDS: INSULIN SLIDING SCALE (NOVOLOG) 1 VIAL SQ SCH ×4 (07:04→22:14)
--- NOTE | 2017-10-30 09:03 | EKG ---
Test Reason : Blood Pressure : / mmHG Vent. Rate : 077 BPM Atrial Rate : 077 BPM P-R Int : 140 ms QRS Dur : 078 ms QT Int : 476 ms P-R-T Axes : 000 -02 010 degrees QTc Int : 538 ms POOR DATA QUALITY, INTERPRETATION MAY BE ADVERSELY AFFECTED ECTOPIC ATRIAL RHYTHM WHEN COMPARED WITH ECG OF 27-DEC-2016 01:49, NO SIGNIFICANT CHANGE WAS FOUND Confirmed by JOSI LOUIS MD ([id number]) on 10/30/2017 9:03:05 AM Referred By: Confirmed By:JOSI LOUIS MD
[2017-10-30 09:52] LABS: HEMATOCRIT 40.9 % (32.4-45.2); HEMOGLOBIN 13.4 GM/dL (10.7-15.3); MCH 32.2 pg (25.7-33.7); MCHC 32.8 g/dl (32.0-36.0); MEAN CELL VOLUME 98.3 fl (80-96); PLATELET COUNT 129 K/MM3 (134-434); RBC 4.16 M/mm3 (3.60-5.2); RDW 13.9 % (11.6-15.6); WHITE BLOOD COUNT 14.4 K/mm3 (4.0-10.0)
[2017-10-30] MEDS: ENALAPRIL MALEATE 10 MG TABLET (FP) PO SCH (10:57)
[2017-10-30] MEDS: NICOTINE 21 MG/24 HOURS TOPICAL PATCH TD SCH (10:57)
[2017-10-30] MEDS: PRENATAL VITAMINS W/ FOLIC ACID TABLET (FP) PO SCH (10:57)
[2017-10-30] MEDS: PANTOPRAZOLE 20 MG TABLET (FP) PO SCH (10:57)
[2017-10-30 10:58] LABS: ALBUMIN 3.1 g/dl (3.4-5.0); ALK PHOS 206 U/L (45-117); ANION GAP 13 (8-16); BLOOD UREA NITROGEN 11 mg/dL (7-18); CHLORIDE 92 mmol/L (98-107); CO2 28 mmol/L (21-32); CREATININE 1.8 mg/dL (0.55-1.02); GLUCOSE,RANDOM 202 mg/dL (74-106); SGOT/AST 111 U/L (15-37); SGPT/ALT 205 U/L (12-78); SODIUM 133 mmol/L (136-145); TOT PROT 6.8 g/dl (6.4-8.2)
[2017-10-30 11:15] LABS: POTASSIUM 2.5 mmol/L (3.5-5.1)
--- NOTE | 2017-10-30 11:57 | PN ---
S CIWA - CIWA Score Muscle Tremors: None Anxiety: 1-Mildly Anxious Agitation: 1-Slight > Activity Paroxysmal Sweats: No Perspiration Orientation: 0-Oriented (says she has nightmares at night- uses clonidine for this) Tacttile Disturbances: 0-None Auditory Disturbances: 0-None
[2017-10-30] MEDS ORDERED: POTASSIUM CHLORIDE ORAL LIQUID 20 MEQ/15 ML PO ONE ×2 (12:00→18:00)
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
[2017-10-30] MEDS ORDERED: ALBUTEROL SO4 0.083% IH SOL 2.5 MG/3 ML VIAL.NEB. NEB ONE (14:25)
[2017-10-30] MEDS: IBUPROFEN 400 MG TABLET (FP) PO PRN (17:57)
[2017-10-30] MEDS ORDERED: cloNIDine HCL 0.1 MG TABLET PO SCH ×2 (22:00)
[2017-10-30] MEDS: MOMETASONE FUROATE 110 MCG/IH INHALER IH SCH (22:08)
[2017-10-30] MEDS: POTASSIUM CHLORIDE ORAL LIQUID 20 MEQ/15 ML PO SCH (22:08)
[2017-10-30] MEDS: QUEtiapine FUMARATE 25 MG TABLET (FP) PO SCH (22:08)
[2017-10-30] MEDS: THIAMINE HCL 100 MG TABLET (FP) PO SCH (22:08)
[2017-10-31] MEDS ORDERED: INSULIN (NOVOLOG) ASPART 100 UNITS/ML 10ML VIAL ONE ×4 (04:06→22:03)
[2017-10-31] MEDS: GABAPENTIN 100 MG CAPSULE (FP) PO SCH ×3 (06:22→22:15)
[2017-10-31] MEDS: chlordiazePOXIDE HCL 25 MG CAPSULE PO SCH ×3 (06:22→17:05)
[2017-10-31] MEDS: INSULIN SLIDING SCALE (NOVOLOG) 1 VIAL SQ SCH ×4 (07:54→22:16)
--- NOTE | 2017-10-31 10:10 | PN ---
S CIWA - CIWA Score Nausea/Vomitin Muscle Tremors: 2 Anxiety: 2 Agitation: 2 Paroxysmal Sweats: 2 Orientation: 0-Oriented Tacttile Disturbances: 2-Mild Itch/Numbness/Burn Auditory Disturbances: 1-Very Mild Visual Disturbances: 1-Very Mild Sensitivity Headache: 1-Very Mild CIWA-Ar Total Score: 15 S Progress Note (SOAP) Subjective: Abdominal cramps, interrupted sleep, tremors and irritability Objective: 10/31/17 10:09 Vital Signs 10/31/17 10/31/17 03:30 06:18 Temperature 96.8 F L Pulse Rate 64 Respiratory 18 18 Rate Blood Pressure 90/53 Laboratory Last Values WBC 14.4 K/mm3 (4.0-10.0) H 10/30/17 07:00 RBC 4.16 M/mm3 (3.60-5.2) 10/30/17 07:00 Hgb 13.4 GM/dL (10.7-15.3) 10/30/17 07:00 Hct 40.9 % (32.4-45.2) 10/30/17 07:00 MCV 98.3 fl (80-96) H 10/30/17 07:00 MCH 32.2 pg (25.7-33.7) 10/30/17 07:00 MCHC 32.8 g/dl (32.0-36.0) 10/30/17 07:00 RDW 13.9 % (11.6-15.6) 10/30/17 07:00 Plt Count 129 K/MM3 (134-434) L D 10/30/17 07:00 MPV 10.0 fl (7.5-11.1) D 10/30/17 07:00 Sodium 133 mmol/L (136-145) L 10/30/17 07:00 Potassium 2.5 mmol/L (3.5-5.1) L* 10/30/17 07:00 Chloride 92 mmol/L (98-107) L 10/30/17 07:00 Carbon Dioxide 28 mmol/L (21-32) 10/30/17 07:00 Anion Gap 13 (8-16) 10/30/17 07:00 BUN 11 mg/dL (7-18) 10/30/17 07:00 Creatinine 1.8 mg/dL (0.55-1.02) H 10/30/17 07:00 Creat Clearance w eGFR 29.43 (>60) 10/30/17 07:00 POC Glucometer 201 UNITS (80-120) 10/31/17 06:19 Random Glucose 202 mg/dL (74-106) H 10/30/17 07:00 Calcium 8.0 mg/dL (8.5-10.1) L 10/30/17 07:00 Total Bilirubin 1.0 mg/dL (0.2-1.0) D 10/30/17 07:00 AST 111 U/L (15-37) H 10/30/17 07:00 ALT 205 U/L (12-78) H 10/30/17 07:00 Alkaline Phosphatase 206 U/L (45-117) H 10/30/17 07:00 Total Protein 6.8 g/dl (6.4-8.2) 10/30/17 07:00 Albumin 3.1 g/dl (3.4-5.0) L 10/30/17 07:00 Urine Color Marla 10/30/17 00:33 Urine Appearance Cloudy 10/30/17 00:33 Urine pH 5.0 (5.0-8.0) D 10/30/17 00:33 Ur Specific [place] 1.017 (1.001-1.035) 10/30/17 00:33 Urine Protein 2+ (NEGATIVE) H 10/30/17 00:33 Urine Glucose (UA) 3+ (NEGATIVE) H D 10/30/17 00:33 Urine Ketones Negative (NEGATIVE) 10/30/17 00: Urine Blood Negative (NEGATIVE) 10/30/17 00: Urine Nitrite Negative (NEGATIVE) 10/30/17 00:33 Urine Bilirubin Negative (<2.0 mg/dL) 10/30/17 00:33 Urine Urobilinogen 4.0 e.u/dl mg/dL (0.2-1.0) H 10/30/17 00:33 Ur Leukocyte Esterase Trace (NEGATIVE) 10/30/17 00:33 Urine WBC (Auto) 20 /hpf (3-5) 10/30/17 00:33 Urine RBC (Auto) 2 /hpf (0-3) 10/30/17 00:33 Ur Epithelial Cells Many /HPF (FEW) 10/30/17 00:33 Calcium Oxalate Crystal Few /hpf (NONE SEEN) 10/30/17 00:33 Urine Bacteria Few /hpf (NONE SEEN) 10/30/17 00:33 Hyaline Casts 62 /lpf 10/30/17 00:33 Urine Mucus Rare 10/30/17 00:33 Hep C Ab Diagnostic <0.1 s/co ratio (0.0-0.9) 10/30/17 07:00 Liver Fibrosis Interp (.) 10/30/17 07:00 HIV 1&2 Antibody Screen Negative 10/30/17 07:00 HIV P24 Antigen Negative 10/30/17 07:00 Labs noted Assessment: 10/31/17 10:10 Withdrawal sx Plan: Continue detox
[2017-10-31 10:49] LABS: CHLORIDE 93 mmol/L (98-107); SODIUM 131 mmol/L (136-145)
[2017-10-31] MEDS: MOMETASONE FUROATE 110 MCG/IH INHALER IH SCH ×2 (10:59→22:16)
[2017-10-31] MEDS: ESCITALOPRAM OXALATE 20 MG TABLET (FP) PO SCH (10:59)
[2017-10-31] MEDS: PANTOPRAZOLE 20 MG TABLET (FP) PO SCH (10:59)
[2017-10-31] MEDS: PRENATAL VITAMINS W/ FOLIC ACID TABLET (FP) PO SCH (10:59)
[2017-10-31] MEDS: NICOTINE 21 MG/24 HOURS TOPICAL PATCH TD SCH (11:00)
[2017-10-31] MEDS: POTASSIUM CHLORIDE ORAL LIQUID 20 MEQ/15 ML PO SCH ×2 (11:00→22:15)
[2017-10-31 11:05] LABS: ALBUMIN 2.8 g/dl (3.4-5.0); ALK PHOS 164 U/L (45-117); ANION GAP 15 (8-16); BILIRUBIN,TOTAL 0.7 mg/dL (0.2-1.0); BLOOD UREA NITROGEN 19 mg/dL (7-18); CO2 23 mmol/L (21-32); CREATININE 2.8 mg/dL (0.55-1.02); GLUCOSE,RANDOM 189 mg/dL (74-106); SGOT/AST 60 U/L (15-37); SGPT/ALT 147 U/L (12-78); TOT PROT 6.4 g/dl (6.4-8.2)
[2017-10-31 11:21] LABS: POTASSIUM 2.6 mmol/L (3.5-5.1)
[2017-10-31] MEDS: POTASSIUM CHLORIDE TABS 20 MEQ TABLET.ER (FP) PO SCH (12:57)
[2017-10-31] MEDS: IBUPROFEN 400 MG TABLET (FP) PO PRN (15:10)
[2017-10-31] MEDS ORDERED: ALBUTEROL SO4 0.083% IH SOL 2.5 MG/3 ML VIAL.NEB. NEB PRN (21:22)
--- NOTE | 2017-10-31 21:24 | PN ---
S Progress Note Note: Patient reports SOB and appears restless. Vital Signs Temperature 97.5 F L 10/31/17 17:26 Pulse Rate 80 10/31/17 17:26 Respiratory Rate 18 10/31/17 17:26 Blood Pressure 105/68 10/31/17 17:26 O2 Sat by Pulse Oximetry (%) Action: Albuterol 0.083% nebulizer treatment Q6H as needed ordered.
[2017-10-31] MEDS: THIAMINE HCL 100 MG TABLET (FP) PO SCH (22:15)
[2017-10-31] MEDS: chlordiazePOXIDE 5 MG CAPSULE PO SCH (22:15)
[2017-10-31] MEDS: QUEtiapine FUMARATE 25 MG TABLET (FP) PO SCH (22:15)
[2017-11-01] MEDS: chlordiazePOXIDE 5 MG CAPSULE PO SCH ×3 (05:46→17:55)
[2017-11-01] MEDS: GABAPENTIN 100 MG CAPSULE (FP) PO SCH ×2 (05:47→14:00)
[2017-11-01] MEDS ORDERED: INSULIN (NOVOLOG) ASPART 100 UNITS/ML 10ML VIAL ONE ×3 (05:50→17:40)
[2017-11-01] MEDS: POTASSIUM CHLORIDE ORAL LIQUID 20 MEQ/15 ML PO SCH (10:22)
[2017-11-01] MEDS: ESCITALOPRAM OXALATE 20 MG TABLET (FP) PO SCH (10:22)
[2017-11-01] MEDS: PRENATAL VITAMINS W/ FOLIC ACID TABLET (FP) PO SCH (10:22)
[2017-11-01] MEDS: PANTOPRAZOLE 20 MG TABLET (FP) PO SCH (10:22)
[2017-11-01] MEDS: NICOTINE 21 MG/24 HOURS TOPICAL PATCH TD SCH (10:23)
[2017-11-01] MEDS: MOMETASONE FUROATE 110 MCG/IH INHALER IH SCH (10:24)
[2017-11-01] MEDS: POTASSIUM CHLORIDE TABS 20 MEQ TABLET.ER (FP) PO SCH (11:43)
[2017-11-01] MEDS: INSULIN SLIDING SCALE (NOVOLOG) 1 VIAL SQ SCH (11:59)
[2017-11-01] MEDS: IBUPROFEN 400 MG TABLET (FP) PO PRN (12:53)
--- NOTE | 2017-11-01 16:06 | PN ---
[facility] Progress Note (SOAP) Subjective: feeling less alcohol withdrawal sx today has low K+ serum level Objective: 11/01/17 16:04 Vital Signs Temperature 97.3 F L 11/01/17 13:11 Pulse Rate 69 11/01/17 13:11 Respiratory Rate 16 11/01/17 13:11 Blood Pressure 107/50 11/01/17 13:11 O2 Sat by Pulse Oximetry (%) Laboratory Last Values WBC 14.4 K/mm3 (4.0-10.0) H 10/30/17 07:00 RBC 4.16 M/mm3 (3.60-5.2) 10/30/17 07:00 Hgb 13.4 GM/dL (10.7-15.3) 10/30/17 07:00 Hct 40.9 % (32.4-45.2) 10/30/17 07:00 MCV 98.3 fl (80-96) H 10/30/17 07:00 MCH 32.2 pg (25.7-33.7) 10/30/17 07:00 MCHC 32.8 g/dl (32.0-36.0) 10/30/17 07:00 RDW 13.9 % (11.6-15.6) 10/30/17 07:00 Plt Count 129 K/MM3 (134-434) L D 10/30/17 07:00 MPV 10.0 fl (7.5-11.1) D 10/30/17 07:00 Sodium 131 mmol/L (136-145) L 10/31/17 08:00 Potassium 2.6 mmol/L (3.5-5.1) L* 10/31/17 08:00 Chloride 93 mmol/L (98-107) L 10/31/17 08:00 Carbon Dioxide 23 mmol/L (21-32) 10/31/17 08:00 Anion Gap 15 (8-16) 10/31/17 08:00 BUN 19 mg/dL (7-18) H 10/31/17 08:00 Creatinine 2.8 mg/dL (0.55-1.02) H 10/31/17 08:00 Creat Clearance w eGFR 17.68 (>60) 10/31/17 08:00 POC Glucometer 244 UNITS (80-120) 11/01/17 11:21 Random Glucose 189 mg/dL (74-106) H 10/31/17 08:00 Calcium 8.0 mg/dL (8.5-10.1) L 10/31/17 08:00 Total Bilirubin 0.7 mg/dL (0.2-1.0) 10/31/17 08:00 AST 60 U/L (15-37) H 10/31/17 08:00 ALT 147 U/L (12-78) H 10/31/17 08:00 Alkaline Phosphatase 164 U/L (45-117) H D 10/31/17 08:00 Total Protein 6.4 g/dl (6.4-8.2) 10/31/17 08:00 Albumin 2.8 g/dl (3.4-5.0) L 10/31/17 08:00 Urine Color [place] 10/30/17 00:33 Urine Appearance Cloudy 10/30/17 00:33 Urine pH 5.0 (5.0-8.0) D 10/30/17 00:33 Ur Specific [place] 1.017 (1.001-1.035) 10/30/17 00:33 Urine Protein 2+ (NEGATIVE) H 10/30/17 00:33 Urine Glucose (UA) 3+ (NEGATIVE) H D 10/30/17 00:33 Urine Ketones Negative (NEGATIVE) 10/30/17 00:33 Urine Blood Negative (NEGATIVE) 10/30/17 00:33 Urine Nitrite Negative (NEGATIVE) 10/30/17 00:33 Urine Bilirubin Negative (<2.0 mg/dL) 10/30/17 00:33 Urine Urobilinogen 4.0 e.u/dl mg/dL (0.2-1.0) H 10/30/17 00:33 Ur Leukocyte Esterase Trace (NEGATIVE) 10/30/17 00:33 Urine WBC (Auto) 20 /hpf (3-5) 10/30/17 00:33 Urine RBC (Auto) 2 /hpf (0-3) 10/30/17 00:33 Ur Epithelial Cells Many /HPF (FEW) 10/30/17 00:33 Calcium Oxalate Crystal Few /hpf (NONE SEEN) 10/30/17 00:33 Urine Bacteria Few /hpf (NONE SEEN) 10/30/17 00:33 Hyaline Casts 62 /lpf 10/30/17 00:33 Urine Mucus Rare 10/30/17 00:33 RPR Titer Nonreactive (NONREACTIVE) 10/30/17 07:00 Hep C Ab Diagnostic <0.1 s/co ratio (0.0-0.9) 10/30/17 07:00 Liver Fibrosis Interp (.) 10/30/17 07:00 HIV 1&2 Antibody Screen Negative 10/30/17 07:00 HIV P24 Antigen Negative 10/30/17 07:00 lab noted Assessment: mild alcohol withdrawal sx hypokalemia Plan: medically supervised detox 40 meq K+ po bid repeat K+ 11/01/17
[2017-11-02] MEDS: IBUPROFEN 400 MG TABLET (FP) PO PRN ×2 (04:04→10:25)
[2017-11-02] MEDS: GABAPENTIN 100 MG CAPSULE (FP) PO SCH ×2 (05:26→08:37)
[2017-11-02] MEDS: chlordiazePOXIDE HCL 10 MG CAPSULE PO SCH ×2 (05:26→08:37)
[2017-11-02] MEDS: MOMETASONE FUROATE 110 MCG/IH INHALER IH SCH ×2 (08:37→09:11)
[2017-11-02] MEDS: THIAMINE HCL 100 MG TABLET (FP) PO SCH (08:37)
[2017-11-02] MEDS: QUEtiapine FUMARATE 25 MG TABLET (FP) PO SCH (08:37)
[2017-11-02] MEDS: POTASSIUM CHLORIDE ORAL LIQUID 20 MEQ/15 ML PO SCH ×2 (08:37→09:16)
[2017-11-02] MEDS: INSULIN SLIDING SCALE (NOVOLOG) 1 VIAL SQ SCH ×2 (08:38→08:51)
[2017-11-02] MEDS ORDERED: INSULIN (NOVOLOG) ASPART 100 UNITS/ML 10ML VIAL ONE (08:51)
[2017-11-02] MEDS: PRENATAL VITAMINS W/ FOLIC ACID TABLET (FP) PO SCH (09:11)
[2017-11-02] MEDS: ESCITALOPRAM OXALATE 20 MG TABLET (FP) PO SCH (09:11)
[2017-11-02] MEDS: PANTOPRAZOLE 20 MG TABLET (FP) PO SCH (09:16)
[2017-11-02] MEDS: NICOTINE 21 MG/24 HOURS TOPICAL PATCH TD SCH (09:16)
--- NOTE | 2017-11-02 09:42 | PN ---
[facility] Progress Note (SOAP) Subjective: ALERT,NO COMPLAINT Objective: 11/02/17 09:39 Vital Signs Temperature 97.7 F 11/02/17 08:09 Pulse Rate 72 11/02/17 08:09 Respiratory Rate 18 11/02/17 08:09 Blood Pressure 112/62 11/02/17 08:09 O2 Sat by Pulse Oximetry (%) Assessment: 11/02/17 09:40 DETOX COMPLETED,NO WITHDRAWAL SYMPTOM REPEAT CMP PENDING PATIENT IS STABLE FOR DISCHARGED TODAY Plan: [facility] UP [facility]
--- NOTE | 2017-11-02 09:47 | DS ---
[facility] Detox Discharge Summary Admission Date: 10/29/17 Discharge Date: 11/02/17 - History Present History: Alcohol Dependence, Cannabis Dependence Pertinent Past History: NICOTINE DEPENDENCE TYPE 2 DM RENAL INSUFFICIENCY - Physical Exam Results Vital Signs: Vital Signs Temperature 97.7 F 11/02/17 08:09 Pulse Rate 72 11/02/17 08:09 Respiratory Rate 11/02/17 08:09 Blood Pressure 112/62 11/02/17 08:09 O2 Sat by Pulse Oximetry (%) Pertinent Admission Physical Exam Findings: WITHDRAWAL SIGNS AND SYMPTOM - Treatment Hospital Course: Detox Protocol Followed, Detoxed Safely, Responded well, Discharged Condition Good, Rehab Referral Accepted Patient has Accepted a Rehab Referral to: [facility] - Medication Discharge Medications: Ambulatory Orders Escitalopram Oxalate [Lexapro -] 20 mg PO DAILY #30 tablet 10/21/16 Quetiapine Fumarate [Seroquel -] 50 mg PO HS 10/30/17 Albuterol Sulfate Inhaler - [Ventolin HFA Inhaler -] 2 inh PO Q4H PRN #1 inhaler 11/01/17 Enalapril Maleate [Vasotec -] 10 mg PO BID #60 tablet 11/01/17 Gabapentin [Neurontin -] 100 mg PO Q8H #90 capsule 11/01/17 Pantoprazole Sodium [Protonix -] 20 mg PO DAILY #30 tablet.ec 11/01/17 Potassium Chloride [K-Dur -] 20 meq PO BID 11/01/17 Potassium Chloride [K-Dur -] 40 meq PO DAILY #30 tablet.er 11/01/17 Sucralfate [Carafate] 1 gm PO BID #60 oral.susp 11/01/17 metFORMIN HCL [Glucophage -] 1,000 mg PO BID #60 tablet 11/01/17 - Diagnosis (1) Alcohol dependence with uncomplicated withdrawal Current Visit: Yes Status: Acute (2) Renal insufficiency Current Visit: Yes Status: Acute (3) Asthma Current Visit: Yes Status: Chronic Qualifiers: Asthma severity: mild Asthma persistence: intermittent Asthma complication type: uncomplicated Qualified Code(s): J45.20 - Mild intermittent asthma, uncomplicated (4) Cannabis dependence Current Visit: Yes Status: Chronic (5) Diabetes mellitus Current Visit: Yes Status: Chronic Qualifiers: Diabetes mellitus type: type 2 Diabetes mellitus retirement insulin use: without retirement use Diabetes mellitus complication status: without complication Qualified Code(s): E11.9 - Type 2 diabetes mellitus without complications (6) Hypertension Current Visit: Yes Status: Chronic Qualifiers: Hypertension type: essential hypertension Qualified Code(s): I10 - Essential (primary) hypertension (7) Nicotine dependence Current Visit: Yes Status: Chronic Qualifiers: Nicotine product type: cigarettes Substance use status: uncomplicated Qualified Code(s): F17.210 - Nicotine dependence, cigarettes, uncomplicated (8) Hypokalemia Current Visit: Yes Status: Acute - AMA Did Patient Leave Against Medical Advice: No
--- NOTE | 2017-11-02 10:02 | PN ---
[facility] Progress Note Note: PATIENT DID NOT WANT TO WAIT FOR LABS RESULT,ADVISE FLUID AND WATER,TO START ON LEVAQUIN 250 MS PO DAILY FOR 7 DAYS,FO[facility] WITH [facility]
[2017-11-02 10:19] LABS: CHLORIDE 104 mmol/L (98-107); POTASSIUM 4.4 mmol/L (3.5-5.1); SODIUM 135 mmol/L (136-145)
[2017-11-02 10:38] LABS: ANION GAP 10 (8-16); BLOOD UREA NITROGEN 24 mg/dL (7-18); CALCIUM 8.8 mg/dL (8.5-10.1); CO2 21 mmol/L (21-32); CREATININE 1.3 mg/dL (0.55-1.02); GLUCOSE,RANDOM 275 mg/dL (74-106)
[2017-11-02 11:12] VITALS: BP 124/76; PULSE 78; TEMP 96.9
--- NOTE | 2017-11-02 11:31 | PN ---
[facility] Progress Note Note: Abnormal Lab Results 11/02/17 07:30 Sodium 135 L BUN 24 H Creatinine 1.3 H Random Glucose 275 H Laboratory Results - last 24 hr 10/31/17 11/01/17 11/01/17 11:04 11:21 16:27 Sodium Potassium Chloride Carbon Dioxide Anion Gap BUN Creatinine Creat Clearance w eGFR POC Glucometer 298 244 220 Random Glucose Calcium 11/01/17 11/02/17 11/02/17 22:52 05:50 07:30 Sodium 135 L Potassium 4.4 Chloride 104 Carbon Dioxide 21 Anion Gap 10 BUN 24 H Creatinine 1.3 H Creat Clearance w eGFR 42.85 POC Glucometer 319 264 Random Glucose 275 H Calcium 8.8 D/C METFORMIN SINCE ADMISSION PATIENT HAS BEEN ON INSULIN COVERAGE PATIENT WILL BE DISCHARGED ON NOVOLOG 4 UNIT SQ BEFORE EACH MEAL,WITH BGM MONITORING AT [facility]
--- NOTE | 2017-11-02 22:13 | EKG ---
Test Reason : Blood Pressure : / mmHG Vent. Rate : 076 BPM Atrial Rate : 076 BPM P-R Int : 158 ms QRS Dur : 080 ms QT Int : 398 ms P-R-T Axes : 061 003 023 degrees QTc Int : 447 ms NORMAL SINUS RHYTHM NORMAL ECG WHEN COMPARED WITH ECG OF 29-OCT-2017 18:59, QT HAS SHORTENED Confirmed by MARA BROWN MD ([id number]) on 11/02/2017 10:13:06 PM Referred By: Confirmed By:MARA BROWN MD
== END 2017-11-02 10:30 | disposition home or self-care (01) | DRG 775 ==
LOC: YASAS 14:25 → Y6N 17:40
PROVIDERS: ADMIT Family Medicine Addiction Medicine; ATTEND Family Medicine Addiction Medicine
PROC: HZ2ZZZZ Detoxification Services for Substance Abuse Treatment (ICD-10-PCS; principal; 2017-10-29)
DX: F10.230 Alcohol dependence with withdrawal, uncomplicated (principal); F12.20 Cannabis dependence, uncomplicated; F17.210 Nicotine dependence, cigarettes, uncomplicated; F33.9 Major depressive disorder, recurrent, unspecified; I10 Essential (primary) hypertension; J45.20 Mild intermittent asthma, uncomplicated; K21.9 Gastro-esophageal reflux disease without esophagitis; F10.24 Alcohol dependence with alcohol-induced mood disorder; E87.6 Hypokalemia; E11.9 Type 2 diabetes mellitus without complications; Z79.84 Long term (current) use of oral hypoglycemic drugs; N28.9 Disorder of kidney and ureter, unspecified; Z91.5 Personal history of self-harm
CPT/HCPCS: 36415; 80048; 80053; 81003; 81015; 82962; 85027; 86593; 87389; 93005; 93010; 94640

== ENCOUNTER 2019-11-01 22:17 | Inpatient (IN) | payer OTHER ==
[2019-11-01 22:30] VITALS: BMI 27.6
--- NOTE | 2019-11-01 22:31 | PDOC ---
Rapid Medical Evaluation Chief Complaint: Wound Time Seen by Provider: 11/01/19 22:26 Medical Evaluation: Allergies Allergy/AdvReac Type Severity Reaction Status Date / Time No Known Allergies Allergy Verified 10/29/17 14:57 11/01/19 22:27 54 year old with history of diabetes c/o left foot infection. reports fever today of 101. patient reports she is dizzy has PMHX: asthma, diabetes. patient reports that she does not take any of her chronic meds since 02/26. PE: patient alert ox3. A: diabetic foot infection; foot pain P: xray labs Discharge Disposition - Diagnosis Foot pain, left Diabetes Qualifiers: Diabetes mellitus type: type 2 Diabetes mellitus emt intermediate insulin use: without residential use Diabetes mellitus complication status: with skin complications Diabetes mellitus complication detail: with foot ulcer Qualified Code(s): E11.621 - Type 2 diabetes mellitus with foot ulcer; L97.509 - Non-pressure chronic ulcer of other part of unspecified foot with unspecified severity - Referrals - Patient Instructions - Post Discharge Activity
--- NOTE | 2019-11-01 22:39 | PDOC ---
History of Present Illness - General Chief Complaint: Wound Stated Complaint: ASTHMA/SOB/CHEST TIGHTNESSL/LEG/PAIN Time Seen by Provider: 11/01/19 22:26 - History of Present Illness Initial Comments: The pt is a 54F w/ a history of alcohol and marijuana abuse, asthma, NIDDM, PUD/GERD, chronic constipation, and depression with a chronic L foot wound who presents for evaluation of worsening wound drainage and pain with associated fever at home. The pt reports her debridement and wound care was at [place] but has not followed up there since June. She has been compliant with daily wound care (soap/water and dressed with s ilvadene) Of note, pt was counseled to have a TMA vs BKA prior Denies WOODY, vision changes, chest pain, trouble breathing, abdominal pain 11/01/19 22:40 Past History - Medical History Allergies/Adverse Reactions: Allergies Allergy/AdvReac Type Severity Reaction Status Date / Time No Known Allergies Allergy Verified 11/01/19 22:30 Home Medications: Ambulatory Orders Escitalopram Oxalate [Lexapro -] 20 mg PO DAILY #30 tablet 10/21/16 Quetiapine Fumarate [Seroquel -] 50 mg PO HS 10/30/17 Albuterol Sulfate Inhaler - [Ventolin HFA Inhaler -] 2 inh PO Q4H PRN #1 inhaler 11/01/17 Enalapril Maleate [Vasotec -] 10 mg PO BID #60 tablet 11/01/17 Gabapentin [Neurontin -] 100 mg PO Q8H #90 capsule 11/01/17 Pantoprazole Sodium [Protonix -] 20 mg PO DAILY #30 tablet.ec 11/01/17 Potassium Chloride [K-Dur -] 40 meq PO DAILY #30 tablet.er 11/01/17 Sucralfate [Carafate] 1 gm PO BID #60 oral.susp 11/01/17 Insulin Sliding Scale [Novolog Vial Sliding Scale -] 1 vial SQ ACHS #1 units 11/02/17 Anemia: No Asthma: Yes Cancer: No Cardiac Disorders: No CVA: No COPD: No CHF: No Dementia: No Diabetes: Yes (NIDDM) GI Disorders: Yes (Acid Reflux) Disorders: No HTN: Yes Hypercholesterolemia: Yes Kidney Stones: No Liver Disease: Yes (h/o fatty liver ) Psychiatric Problems: Yes (depression, drug abuse, etoh abuse) Seizures: No Thyroid Disease: No - Surgical History Abdominal Surgery: Yes (rt ovarian cyst) Appendectomy: Yes (age 8) Cardiac Surgery: No Cholecystectomy: No Lung Surgery: No Neurologic Surgery: No Orthopedic Surgery: No - Reproductive History PID: No - Immunization History Immunization Up to Date: Yes - Psycho-Social/Smoking History Smoking History: Current every day smoker Have you smoked in the past 12 months: Yes Number of Cigarettes Smoked Daily: 10 Cigars Per Day: 0 Information on smoking cessation initiated: No 'Breaking Loose' booklet given: 10/29/17 - Substance Abuse Hx (Audit-C & DAST Scrn) How often the patient has a drink containing alcohol: 4 0r more times/wk Number of drinks the patient has on a typical day: 1 or 2 Score: In Men: 4 or > Positive; In Women: 3 or > Positive: 4 Screen Result (Pos requires Nsg. Audit-10AR): Positive Review of Systems - Review of Systems Able to Perform ROS?: Yes Comments:: GENERAL/CONSTITUTIONAL: +fevers HEAD, EYES, EARS, NOSE AND THROAT: No change in vision. No change in hearing. No sore throat CARDIOVASCULAR: No chest pain or shortness of breath RESPIRATORY: Denies cough, hemoptysis GASTROINTESTINAL: No nausea, vomiting GENITOURINARY: No dysuria, frequency, or change in urination MUSCULOSKELETAL: No joint or muscle swelling or pain. No neck or back pain SKIN: +L plantar wound NEUROLOGIC: No headache, vertigo, loss of consciousness ENDOCRINE: +polyuria (chronic) HEMATOLOGIC/LYMPHATIC: No anemia, easy bleeding, or history of blood clots ALLERGIC/IMMUNOLOGIC: No hives or skin allergy 11/01/19 22:38 Is the patient limited Prydeinig proficient: No *Physical Exam - Vital Signs Last Vital Signs Temp Pulse Resp BP Pulse Ox 100.9 F H 104 H 18 171/77 H 99 11/01/19 22:27 11/01/19 22:27 11/01/19 22:27 11/01/19 22:27 11/01/19 22:27 - Physical Exam GENERAL: Awake, alert, and oriented to person/place/time, in no acute distress HEAD: No signs of trauma, normocephalic, atraumatic EYES: PERRLA, EOMI, sclera anicteric, conjunctiva clear ENT: Hearing grossly normal, nares patent, oropharynx clear without exudates. Moist mucosa LUNGS: No distress, speaks in full sentences, clear to auscultation bilaterally HEART: Regular rate and rhythm, normal S1 and S2, no murmurs appreciated, per ipheral pulses normal and equal bilaterally ABDOMEN: Soft, nontender, normoactive bowel sounds. No guarding, no rebound EXTREMITIES: Moves all extremities independently NEUROLOGICAL: Cranial nerves II through XII grossly intact. Normal speech SKIN: L plantar wound with small amount of drainage, healthy appearing/granulated base with surrounding necrotic tissue; no tracking cellulitis 11/01/19 22:38 ED Treatment Course - LABORATORY CBC & Chemistry Diagram: 11/01/19 23:05 11/02/19 06:10 Medical Decision Making - Medical Decision Making The pt is a 54F w/ a history of alcohol and marijuana abuse, asthma, NIDDM, PUD/GERD, chronic constipation, and depression with a chronic L foot wound presents for evaluation of an infection L plantar diabetic wound w/ likely sepsis Pt noted to be febrile and tachycardic on arrival Pt given Tylenol and Ibuprofen ECG w/ NSR; HR 97; QTc 434; no acute ischemic changes Sepsis lab sent Wound culture sent Leukocytosis noted Trop I neg UA w/o evidence of UTI Pt given IVF Vanc/Zosyn given for broad coverage Plan for admission 11/02/19 08:03 Discharge - Discharge Information Problems reviewed: Yes Clinical Impression/Diagnosis: Foot pain, left, Infected wound Diabetes Qualifiers: Diabetes mellitus type: type 2 Diabetes mellitus nursing home insulin use: without nursing home use Diabetes mellitus complication status: with skin complications Diabetes mellitus complication detail: with foot ulcer Qualified Code(s): E11.621 - Type 2 diabetes mellitus with foot ulcer; L97.509 - Non-pressure ch ronic ulcer of other part of unspecified foot with unspecified severity Sepsis Qualifiers: Sepsis type: sepsis due to unspecified organism Sepsis acute organ dysfunction status: unspecified Qualified Code(s): A41.9 - Sepsis, unspecified organism Condition: Good - Admission Yes - Follow up/Referral - Patient Discharge Instructions - Post Discharge Activity
--- NOTE | 2019-11-01 22:49 | PDOC ---
Attending Attestation - Resident Resident Name: Marcell Garza - ED Attending Attestation I have performed the following: I have examined & evaluated the patient, The case was reviewed & discussed with the resident, I agree w/resident's findings & plan, Exceptions are as noted - HPI HPI: 11/01/19 22:49 54 yo female who is diabetic has c/o of fever and left foot infection. Sheh as no taken any meds since Feb 2019. - Physicial Exam PE: 11/01/19 22:51 54 yo female p/e fever,tachycardia and left foot wound head ncat neck supple lungs cta b/l cvs tachycardia abdomen nontender skin warm and dry extremities ++ 5cm x 2 cm wound on plantar surface of left foot,digits 4,5 amputated,++swelling,minimal drainage neuro axox3 11/01/19 23:09 - Medical Decision Making 11/01/19 22:49 elg NSR @ 97 bpm 11/01/19 22:53 plan : nonhealing diabetic foot wound,sepsis w/u with IV vanco and zosyn, would cultures xrays,admission 11/01/19 23:12 11/01/19 23:37 Discharge - Discharge Information Problems reviewed: Yes Clinical Impression/Diagnosis: Foot pain, left Diabetes Qualifiers: Diabetes mellitus type: type 2 Diabetes mellitus detention insulin use: without laborer marine terminal use Diabetes mellitus complication status: with skin complications Diabetes mellitus complication detail: with foot ulcer Qualified Code(s): E11.621 - Type 2 diabetes mellitus with foot ulcer - Follow up/Referral - Patient Discharge Instructions - Post Discharge Activity
[2019-11-01] MEDS ORDERED: PIPERACILLIN/TAZOB 3.375 GM 3.375 GM in DEXTROSE 5%-WATER - 50 ML IVPB ONE (23:20)
[2019-11-01] MEDS ORDERED: VANCOMYCIN 1 GM in D5W (PRE-DOCKED) 1,000 MG/250 ML IVPB ONE (23:20)
[2019-11-01 23:22] LABS: BASO % 0.7 % (0-2.0); EOS % 0.7 % (0-4.5); HEMATOCRIT 34.5 % (32.4-45.2); HEMOGLOBIN 11.1 GM/dL (10.7-15.3); LYMPH % 5.5 % (8-40); MCH 30.5 pg (25.7-33.7); MCHC 32.3 g/dl (32.0-36.0); MEAN CELL VOLUME 94.6 fl (80-96); MONO % 10.1 % (3.8-10.2); PLATELET COUNT 400 K/MM3 (134-434); RBC 3.65 M/mm3 (3.60-5.2); RDW 17.7 % (11.6-15.6); WHITE BLOOD COUNT 16.8 K/mm3 (4.0-10.0)
[2019-11-01] MEDS ORDERED: ACETAMINOPHEN 650 MG/20.3 ML ORAL SOLUTION (CUPS) PO ONE (23:29)
[2019-11-01 23:57] LABS: ALBUMIN 2.7 g/dl (3.4-5.0); BILIRUBIN,TOTAL 0.4 mg/dL (0.2-1); CALCIUM 8.8 mg/dL (8.5-10.1); POTASSIUM 3.9 mmol/L (3.5-5.1); TOT PROT 7.7 g/dl (6.4-8.2)
[2019-11-02] MEDS ORDERED: VANCOMYCIN 1 GRAM (PRE-DOCKED) 1,000 MG/250 ML BAG IVPB ONE (00:27)
[2019-11-02] MEDS ORDERED: ACETAMINOPHEN 325 MG TABLET (FP) ONE (00:28)
[2019-11-02] MEDS ORDERED: PIPERACILLIN/TAZOB 3.375 GM 3.375 GM/50 ML BAG IVPB ONE ×2 (00:28→06:55)
[2019-11-02 00:53] LABS: INR 1.04 (0.83-1.09); PROTHROMBIN TIME (PATIENT) 12.3 SEC (9.7-13.0)
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
[2019-11-02] MEDS ORDERED: IBUPROFEN 600 MG TABLET (FP) PO ONE ×2 (02:51→02:55)
[2019-11-02] MEDS ORDERED: ALBUTEROL SO4 2.5/IPRATROPIUM 0.5 INH SOL 3 ML VIAL.NEB. NEB PRN (03:01)
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
[2019-11-02] MEDS ORDERED: ALBUTEROL SO4 HFA INHALER IH PRN (04:01)
[2019-11-02] MEDS ORDERED: ENALAPRIL MALEATE 10 MG TABLET (FP) PO SCH ×2 (04:02→10:00)
[2019-11-02] MEDS ORDERED: SODIUM CHLORIDE 1,000 ML IV STA (04:39)
[2019-11-02 04:42] VITALS: BP 120/64; PULSE 84; TEMP 97.8
[2019-11-02 05:09] LABS: PHOSPHOROUS 3.4 mg/dL (2.5-4.9)
[2019-11-02 05:59] LABS: URINE APPEARANCE CLEAR; URINE BILIRUBIN NEGATIVE (NEGATIVE); URINE COLOR YELLOW; URINE GLUCOSE (UA) NEGATIVE (NEGATIVE); URINE KETONE NEGATIVE (NEGATIVE); URINE LEUK ESTERASE NEGATIVE (NEGATIVE); URINE NITRITE NEGATIVE (NEGATIVE); URINE PROTEIN TRACE (NEGATIVE); URINE UROBILINOGEN 0.2 mg/dL (0.2-1.0)
[2019-11-02] MEDS ORDERED: GABAPENTIN 100 MG CAPSULE PO SCH (06:00)
[2019-11-02] MEDS ORDERED: GABAPENTIN 100 MG CAPSULE ONE (06:55)
[2019-11-02 07:18] LABS: ALBUMIN 2.1 g/dl (3.4-5.0); BILIRUBIN,TOTAL 0.5 mg/dL (0.2-1); BLOOD UREA NITROGEN 9.1 mg/dL (7-18); MAGNESIUM 1.9 mg/dL (1.8-2.4); PHOSPHOROUS 3.7 mg/dL (2.5-4.9); TOT PROT 6.3 g/dl (6.4-8.2)
[2019-11-02 07:34] LABS: CHOLESTEROL 141 mg/dL (50-200); HDL CHOLESTEROL 50 mg/dL (40-60); LDL CHOLESTEROL (ONLY SJRH) 65 mg/dL (5-100); TRIGLYCERIDES 86 mg/dL (0-150)
[2019-11-02] MEDS ORDERED: PIPERACILLIN/TAZOB 3.375 GM 3.375 GM in DEXTROSE 5%-WATER - 50 ML IVPB SCH ×2 (08:00→10:00)
[2019-11-02] MEDS: INSULIN SLIDING SCALE (NOVOLOG) 1 VIAL SQ SCH ×2 (09:55→14:21)
[2019-11-02] MEDS ORDERED: SERTRALINE HCL 50 MG TABLET (FP) PO SCH (10:00)
[2019-11-02] MEDS ORDERED: ENOXAPARIN NA (PORCINE) 40 MG/0.4 ML DISP.SYRIN SQ SCH (10:00)
[2019-11-02] MEDS ORDERED: NICOTINE 7 MG/24 HOURS TOPICAL PATCH TD SCH (10:00)
--- NOTE | 2019-11-02 10:44 | CON.PSL ---
Psychology Consult Consult Specialty:: Clinical Psychology History Provided By: Medical Record Current Medications: Active Medications Albuterol Sulfate (Ventolin Hfa Inhaler -) 2 puff IH Q4H PRN PRN Reason: WHEEZING Enalapril Maleate (Vasotec -) 10 mg PO BID [facility] Enoxaparin Sodium (Lovenox -) 40 mg SQ DAILY [facility] Gabapentin (Neurontin -) 100 mg PO TID [facility] Last Admin: 11/02/19 07:02 Dose: 100 mg Documented by: Piperacillin Sod/Tazobactam (Sod 3.375 gm/ Dextrose) 50 mls @ 100 mls/hr IVPB Q6H [facility]; Protocol Stop: 11/02/19 20:29 Last Admin: 11/02/19 09:55 Dose: 100 mls/hr Documented by: Piperacillin Sod/Tazobactam (Sod 3.375 gm/ Dextrose) 50 mls @ 100 mls/hr IVPB Q6H-IV [facility]; Protocol Insulin Aspart (Novolog Vial Sliding Scale -) 0 vial SQ ACHS [facility]; Protocol Last Admin: 11/02/19 09:55 Dose: Not Given Documented by: Nicotine (Nicoderm Patch -) 7 mg TD DAILY [facility] Sertraline HCl (Zoloft -) 50 mg PO DAILY [facility] Vancomycin HCl (Vancomycin (Pre-Docked)) 1,000 mg IVPB Q12H [facility]; Protocol Stop: 11/02/19 14:01 Vancomycin HCl (Vancomycin (Pre-Docked)) 1,000 mg IVPB Q12H [facility]; Protocol Allergies: Allergies Allergy/AdvReac Type Severity Reaction Status Date / Time No Known Allergies Allergy Verified 11/01/19 22:30 Assessment/Plan The consultation was received while the patient was in the ER awaiting a bed on one of the floors. A review of her medical chart indicates that the patient has a hx of alcohol, cocaine and marijuana use. She apparently uses marijuana for pain relief. She arrived in the ER with a fever and an open foot wound. Depression was noted in the ER hx. Since the patient was discharged prior to my ability to assess her earlier, I can only recommend continued out patient treatment for her mental health and substance abuse It appears she may benefit mostly from inpatient treatment.
[2019-11-02] MEDS ORDERED: PT OWN MED DRAWER 7, Y5N ONE (10:49)
[2019-11-02] MEDS ORDERED: SERTRALINE HCL 50 MG TABLET (FP) ONE (10:51)
[2019-11-02] MEDS ORDERED: ENOXAPARIN NA (PORCINE) 40 MG/0.4 ML DISP.SYRIN SQ ONE (11:35)
--- NOTE | 2019-11-02 12:28 | CON.PSY ---
Psychiatry Consult Chief Complaint: 54 Year old female seen for? [id number] and poor insight?? Patient is very angry, denies ant depression and refuses to talk to me.. Denies an6y suicidal ideas or )Plans.. No evidence of any self damaging behaviour. Symptoms: reports: Irritability - Previous Psychiatric Treatment Outpatient: None Inpatient: None - Previous Substance Abuse Treatment Outpatient: None Inpatient: None - Current Medications Current Medications: Active Medications Albuterol Sulfate (Ventolin Hfa Inhaler -) 2 puff IH Q4H PRN PRN Reason: WHEEZING Enalapril Maleate (Vasotec -) 10 mg PO BID [facility] Enoxaparin Sodium (Lovenox -) 40 mg SQ DAILY [facility] Gabapentin (Neurontin -) 100 mg PO TID [facility] Last Admin: 11/02/19 07:02 Dose: 100 mg Documented by: Piperacillin Sod/Tazobactam (Sod 3.375 gm/ Dextrose) 50 mls @ 100 mls/hr IVPB Q6H [facility]; Protocol Stop: 11/02/19 20:29 Last Admin: 11/02/19 09:55 Dose: 100 mls/hr Documented by: Piperacillin Sod/Tazobactam (Sod 3.375 gm/ Dextrose) 50 mls @ 100 mls/hr IVPB Q6H-IV [facility]; Protocol Insulin Aspart (Novolog Vial Sliding Scale -) 0 vial SQ ACHS [facility]; Protocol Last Admin: 11/02/19 09:55 Dose: Not Given Documented by: Nicotine (Nicoderm Patch -) 7 mg TD DAILY [facility] Sertraline HCl (Zoloft -) 50 mg PO DAILY [facility] Vancomycin HCl (Vancomycin (Pre-Docked)) 1,000 mg IVPB Q12H [facility]; Protocol Stop: 11/02/19 14:01 Vancomycin HCl (Vancomycin (Pre-Docked)) 1,000 mg IVPB Q12H [facility]; Protocol - Allergies Allergies: Allergies Allergy/AdvReac Type Severity Reaction Status Date / Time No Known Allergies Allergy Verified 11/01/19 22:30 - Current Living Status Usual Living Arrangement: Alone - Current Mental Status Evaluation Appearance: Well Groomed Attitude: Uncooperative - Affect Affect: Full Range Appropriateness: Appropriate to Content - Mood Mood: Angry - Speech/Language Expressive: Coherent - Psychomotor Activity Psychomotor Activity: Normal - Thought Process Thought Process: Intact - Thought Content Hallucinations: Absent Delusions: Absent - Self Perception Self Perception: No Impairment - Cognition Attention: Alert Orientation: Time Memory, Immediate Recall: Intact Memory, Short Term: 3/3 Memory, Remote with Promptin/3 - Concentration Serial Sevens Intact: No Simple Calculations Intact: Yes - Abstraction Proverb Interpretation: Intact Judgement: Minimally Impaired - Insight Insight: Intact - Impulse Control Impulse Control: Minimally Impaired - Suicidal Ideation Suicidal Ideation: No - Homicidal Ideation Homicidal Ideation: No Assessment/Plan 1) No acute Mental illness, not suicidal at this time.
[2019-11-02] MEDS ORDERED: ENALAPRIL MALEATE 5 MG TABLET (FP) ONE (12:30)
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
[2019-11-02] MEDS ORDERED: COLLAGENASE CLOSTRIDIUM HIST. 30 GRAMS TUBE TP SCH (12:45)
--- NOTE | 2019-11-02 13:17 | DS ---
Physical Exam: SUBJECTIVE: Patient seen and examined at the bedside, complaining of pain at the sole of her L foot. OBJECTIVE: Vital Signs Period Temp Pulse Resp BP Sys/Cody Pulse Ox Last 24 Hr 97.8 F-100.9 F 78-104 15-20 110-171/59-77 92-99 PHYSICAL EXAM GENERAL: The patient is awake, alert, and fully oriented, in no acute distress. HEAD: Normal with no signs of trauma. EYES: PERRL, extraocular movements intact, sclera anicteric, conjunctiva clear. ENT: Ears normal, nares patent, oropharynx clear without exudates, moist mucous membranes. NECK: Trachea midline, full range of motion, supple. LUNGS: Breath sounds equal, clear to auscultation bilaterally, no wheezes, no crackles, no accessory muscle use. HEART: Regular rate and rhythm, S1, S2 without murmur, rub or gallop. ABDOMEN: Soft, nontender, nondistended, normoactive bowel sounds, no guarding, no rebound, no hepatosplenomegaly, no masses. EXTREMITIES: 1+ dorsal pedal pulses, warm, No calf tenderness. LLE trace/1+ edema; plantar diabetic foot ulcer, with scant purulent drainage, bone visible (Stage IV) NEUROLOGICAL: Cranial nerves II through XII grossly intact. Normal speech, gait not observed. PSYCH: Normal mood, normal affect. SKIN: Warm, dry, normal turgor, no rashes or lesions noted. LABS Laboratory Results - last 24 hr 11/01/19 11/01/19 11/01/19 23:05 23:05 23:05 WBC 16.8 H RBC 3.65 Hgb 11.1 Hct 34.5 D MCV 94.6 MCH 30.5 MCHC 32.3 RDW 17.7 H Plt Count 400 D MPV 7.0 L D Absolute Neuts (auto) 14.0 H Neutrophils % 83.0 H D Lymphocytes % 5.5 L D Monocytes % 10.1 Eosinophils % 0.7 Basophils % 0.7 Nucleated RBC % 0 ESR PT with INR 12.30 INR 1.04 PTT (Actin FS) 33.0 Sodium Potassium Chloride Carbon Dioxide Anion Gap BUN Creatinine Est GFR (CKD-EPI)AfAm Est GFR (CKD-EPI)NonAf POC Glucometer Random Glucose Hemoglobin A1c % Lactic Acid Calcium Phosphorus Magnesium Total Bilirubin AST ALT Alkaline Phosphatase Troponin I < 0.02 C-Reactive Protein Total Protein Albumin Triglycerides Cholesterol Total LDL Cholesterol HDL Cholesterol TSH Urine Color Urine Appearance Urine pH Ur Specific Wenden Urine Protein Urine Glucose (UA) Urine Ketones Urine Blood Urine Nitrite Urine Bilirubin Urine Urobilinogen Ur Leukocyte Esterase Blood Type Antibody Screen 11/01/19 11/01/19 11/02/19 23:05 23:05 04:35 WBC RBC Hgb Hct MCV MCH MCHC RDW Plt Count MPV Absolute Neuts (auto) Neutrophils % Lymphocytes % Monocytes % Eosinophils % Basophils % Nucleated RBC % ESR PT with INR INR PTT (Actin FS) Sodium 131 L Potassium 3.9 Chloride 97 L Carbon Dioxide 24 Anion Gap 9 BUN 8.0 Creatinine 1.0 Est GFR (CKD-EPI)AfAm 73.45 Est GFR (CKD-EPI)NonAf 63.37 POC Glucometer Random Glucose 155 H Hemoglobin A1c % Lactic Acid 0.8 Calcium 8.8 Phosphorus 3.4 Magnesium 2.0 Total Bilirubin 0.4 AST 8 L ALT 14 Alkaline Phosphatase 116 Troponin I C-Reactive Protein Total Protein 7.7 Albumin 2.7 L Triglycerides Cholesterol Total LDL Cholesterol HDL Cholesterol TSH Urine Color Urine Appearance Urine pH Ur Specific Wenden Urine Protein Urine Glucose (UA) Urine Ketones Urine Blood Urine Nitrite Urine Bilirubin Urine Urobilinogen Ur Leukocyte Esterase Blood Type Antibody Screen 11/02/19 11/02/19 11/02/19 05:10 06:10 06:10 WBC RBC Hgb Hct MCV MCH MCHC RDW Plt Count MPV Absolute Neuts (auto) Neutrophils % Lymphocytes % Monocytes % Eosinophils % Basophils % Nucleated RBC % ESR PT with INR INR PTT (Actin FS) Sodium 133 L Potassium 4.0 Chloride 100 Carbon Dioxide 26 Anion Gap 6 L BUN 9.1 Creatinine 1.0 Est GFR (CKD-EPI)AfAm 73.45 Est GFR (CKD-EPI)NonAf 63.37 POC Glucometer Random Glucose 116 H Hemoglobin A1c % Lactic Acid Calcium 8.0 L Phosphorus 3.7 Magnesium 1.9 Total Bilirubin 0.5 AST 6 L ALT 10 L Alkaline Phosphatase 100 Troponin I C-Reactive Protein 6.8 H Total Protein 6.3 L Albumin 2.1 L Triglycerides Cholesterol Total LDL Cholesterol HDL Cholesterol TSH 0.68 Urine Color Yellow Urine Appearance Clear Urine pH 6.0 Ur Specific Wenden 1.010 Urine Protein Trace Urine Glucose (UA) Negative Urine Ketones Negative Urine Blood Negative Urine Nitrite Negative Urine Bilirubin Negative Urine Urobilinogen 0.2 Ur Leukocyte Esterase Negative Blood Type O POSITIVE Antibody Screen Negative 11/02/19 11/02/19 11/02/19 06:10 06:10 06:10 WBC RBC Hgb Hct MCV MCH MCHC RDW Plt Count MPV Absolute Neuts (auto) Neutrophils % Lymphocytes % Monocytes % Eosinophils % Basophils % Nucleated RBC % ESR 97 H PT with INR INR PTT (Actin FS) Sodium Potassium Chloride Carbon Dioxide Anion Gap BUN Creatinine Est GFR (CKD-EPI)AfAm Est GFR (CKD-EPI)NonAf POC Glucometer Random Glucose Hemoglobin A1c % 6.3 Lactic Acid Calcium Phosphorus Magnesium Total Bilirubin AST ALT Alkaline Phosphatase Troponin I C-Reactive Protein Total Protein Albumin Triglycerides 86 Cholesterol 141 Total LDL Cholesterol 65 HDL Cholesterol 50 TSH Urine Color Urine Appearance Urine pH Ur Specific Wenden Urine Protein Urine Glucose (UA) Urine Ketones Urine Blood Urine Nitrite Urine Bilirubin Urine Urobilinogen Ur Leukocyte Esterase Blood Type Antibody Screen 11/02/19 11:12 WBC RBC Hgb Hct MCV MCH MCHC RDW Plt Count MPV Absolute Neuts (auto) Neutrophils % Lymphocytes % Monocytes % Eosinophils % Basophils % Nucleated RBC % ESR PT with INR INR PTT (Actin FS) Sodium Potassium Chloride Carbon Dioxide Anion Gap BUN Creatinine Est GFR (CKD-EPI)AfAm Est GFR (CKD-EPI)NonAf POC Glucometer 144 Random Glucose Hemoglobin A1c % Lactic Acid Calcium Phosphorus Magnesium Total Bilirubin AST ALT Alkaline Phosphatase Troponin I C-Reactive Protein Total Protein Albumin Triglycerides Cholesterol Total LDL Cholesterol HDL Cholesterol TSH Urine Color Urine Appearance Urine pH Ur Specific Wenden Urine Protein Urine Glucose (UA) Urine Ketones Urine Blood Urine Nitrite Urine Bilirubin Urine Urobilinogen Ur Leukocyte Esterase Blood Type Antibody Screen HOSPITAL COURSE: Date of Admission:11/02/19 54 year old female with PMH of GERD, HTN, DM, Asthma, Polysubstance abuse (EtOH, Cocaine- IH, Marijuana and Nicotine), HLD, Depression ( s/p intentional pill overdose in 1996) with a grade IV diabetic ulcer on the sole of her foot. She presented to the ER after she noticed a "bloot clot" coming out of the wound. No fevers, chills. Her WBC was 16.8 with elevated ESR, and she was afebrile. She was started on Vanc/Zosyn and MRI was pending. During examination, pt requested PO abx so she could leave. Repeat attempts were made to educate the patient and explain the PO abx were not an option since they would not be potent enough to treat her infection. The pt believed this was an attempt to intentionally keep her at the hospital "on our terms" and became increasingly hostile towards staff. Eventually, pt requested to leave AMA. During the process of explaining risks to the patient, she eloped. Date of Discharge: 11/02/19 Minutes to complete discharge: 36 Discharge Summary Problems reviewed: Yes Reason For Visit: DIABETIC FOOT INFECTION, SEPSIS Current Active Problems Foot pain, left (Acute) Infected wound (Acute) Sepsis (Acute) Diabetes mellitus (Chronic) Condition: Good - Instructions Disposition: ELOPED - Home Medications Comprehensive Discharge Medication List: Ambulatory Orders Escitalopram Oxalate [Lexapro -] 20 mg PO DAILY #30 tablet 10/21/16 Quetiapine Fumarate [Seroquel -] 50 mg PO HS 10/30/17 Albuterol Sulfate Inhaler - [Ventolin HFA Inhaler -] 2 inh PO Q4H PRN #1 inhaler 11/01/17 Enalapril Maleate [Vasotec -] 10 mg PO BID #60 tablet 11/01/17 Gabapentin [Neurontin -] 100 mg PO Q8H #90 capsule 11/01/17 Pantoprazole Sodium [Protonix -] 20 mg PO DAILY #30 tablet.ec 11/01/17 Potassium Chloride [K-Dur -] 40 meq PO DAILY #30 tablet.er 11/01/17 Sucralfate [Carafate] 1 gm PO BID #60 oral.susp 11/01/17 Insulin Sliding Scale [Novolog Vial Sliding Scale -] 1 vial SQ ACHS #1 units 11/02/17 This patient is new to me today: No Emergency Visit: No Critical Care patient: No - Discharge Referral Referred to [facility] Med [facility] No ATTENDING PHYSICIAN STATEMENT I saw and evaluated the patient. I reviewed the resident's note and discussed the case with the resident. I agree with the resident's findings and plan as documented. SUBJECTIVE: OBJECTIVE: ASSESSMENT AND PLAN:
--- NOTE | 2019-11-02 13:41 | PN ---
Teaching Attending Note Name of Resident: Marcio Vargas ATTENDING PHYSICIAN STATEMENT I saw and evaluated the patient. I reviewed the resident's note and discussed the case with the resident. I agree with the resident's findings and plan as documented. SUBJECTIVE: Seen and examined at bedside. Spoke with the patient in depth during rounds thi s morning who agreed to stay for testing and medical work-up for her diabetic ulcer presumed to be osteomyelitis. She was in a poor mood but was amenable to conversation at the time. Called by nurse later stating patient desired to leave AMA. Attempted to discuss reasons for patient who was upset and would not provide any reasons for leaving stating only that she "would not be staying here any longer." I explained to her that she would almost certainly end up in another hospital within a short period of time in a worse condition to which she stated she understood. I turned to briefly speak to another patient and when I turned around the patient had eloped. OBJECTIVE: Last Vital Signs Temp Pulse Resp BP Pulse Ox 97.8 F 84 15 120/64 99 11/02/19 04:30 11/02/19 04:30 11/02/19 04:30 11/02/19 04:30 11/02/19 04:30 PE: per resident note Labs/Imaging: reviewed ASSESSMENT AND PLAN: 54-year-old female with multiple medical and psych issues presents with diabetic foot ulcer and likely osteomyelitis. Patient requested to leave AMA and before papers were able to be given she eloped.
[2019-11-02] MEDS ORDERED: VANCOMYCIN 1 GM in D5W (PRE-DOCKED) 1,000 MG/250 ML IVPB SCH (14:00)
[2019-11-03] MEDS ORDERED: VANCOMYCIN 1 GM in D5W (PRE-DOCKED) 1,000 MG/250 ML IVPB SCH (02:00)
[2019-11-03] MEDS ORDERED: PIPERACILLIN/TAZOB 3.375 GM 3.375 GM in DEXTROSE 5%-WATER - 50 ML IVPB SCH (03:00)
--- NOTE | 2019-11-03 17:38 | EKG ---
Test Reason : Blood Pressure : / mmHG Vent. Rate : 097 BPM Atrial Rate : 097 BPM P-R Int : 148 ms QRS Dur : 074 ms QT Int : 342 ms P-R-T Axes : 054 -01 039 degrees QTc Int : 434 ms NORMAL SINUS RHYTHM POSSIBLE LEFT ATRIAL ENLARGEMENT BORDERLINE ECG WHEN COMPARED WITH ECG OF 31-OCT-2017 12:21, NO SIGNIFICANT CHANGE WAS FOUND Confirmed by SYDNEY RAMIREZ MD ([id number]) on 11/03/2019 5:37:26 PM Referred By: Confirmed By:SYDNEY RAMIREZ MD
== END 2019-11-02 13:07 | disposition left against medical advice (07) | DRG 344 ==
LOC: JER 22:17 → JERBED 11-02 01:35
PROVIDERS: ADMIT Internal Medicine; ATTEND Internal Medicine
DX: E11.69 Type 2 diabetes mellitus with other specified complication (principal); E78.5 Hyperlipidemia, unspecified; E87.1 Hypo-osmolality and hyponatremia; J45.909 Unspecified asthma, uncomplicated; F32.9 Major depressive disorder, single episode, unspecified; F10.10 Alcohol abuse, uncomplicated; F12.10 Cannabis abuse, uncomplicated; A41.89 Other specified sepsis; I10 Essential (primary) hypertension; L97.509 Non-pressure chronic ulcer of other part of unspecified foot with unspecified severity; M86.9 Osteomyelitis, unspecified; E11.621 Type 2 diabetes mellitus with foot ulcer; E11.319 Type 2 diabetes mellitus with unspecified diabetic retinopathy without macular edema; E11.65 Type 2 diabetes mellitus with hyperglycemia; K21.9 Gastro-esophageal reflux disease without esophagitis; E11.51 Type 2 diabetes mellitus with diabetic peripheral angiopathy without gangrene; K59.09 Other constipation; K76.0 Fatty (change of) liver, not elsewhere classified; R00.0 Tachycardia, unspecified; N83.209 Unspecified ovarian cyst, unspecified side; E88.09 Other disorders of plasma-protein metabolism, not elsewhere classified; E46 Unspecified protein-calorie malnutrition; Z68.27 Body mass index [BMI] 27.0-27.9, adult; Z89.429 Acquired absence of other toe(s), unspecified side
CPT/HCPCS: 36415; 71045-TC-FY; 73610-TC-LT-FY; 73630-TC-LT; 80053; 80061; 81003; 82962; 83036; 83605; 83721; 83735; 84100; 84443; 84484; 85025; 85610; 85651; 85730; 86140; 86850; 86900; 86901; 87040; 87086; 93005; 93010; 99285-25; U0003